=== PATIENT | female | born 1940 | race Caucasian/White ===

== ENCOUNTER → 2016-12-22 | Day surgery (SDC) | payer OTHER, MEDICARE ==
[~2016-12-22] VITALS: Ht 160 cm; Wt 93.4 kg
[~2016-12-22] MED LIST: ARTIFICIAL TEAR15 M2 OP; ASPIRIN81 M1 PO; BENADRYL25 MG PO; BENTYL10 M1 PO; CITRUCEL POWDE850 GM PO; CLARITIN10 MG PO; COLACE100 MG PO; GAS FREE EXTRA125 MG; GOOD SENSE IBU200 MG PO; LACRI LUBE1 OIN OP; LAMICTAL 100MG100 MG PO; MELATONIN3 MG PO; MYRBETRIQ50 M1 PO; PROAIR HFA8.5 GM INH; RESTASIS 0.4 M0.4 ML OPH; SARNA 0.5%-0.5222 ML TOP; SENOKOT NATURA8.6 MG PO; SERTRALINE HYD100 MG PO; TRIAMCINOL0.1 %/453 TOP; TYLENOL #31 TAB PO; TYLENOL TAB 32325 MG PO; TYLENOL WITH C1 EACH PO; VITAMIN D31000 IU PO; XANAX0.5 MG PO; [UNRECOGNIZED DRUG - OTHER] PO
--- NOTE | 2016-12-22 13:11 | Operative Report ---
Operative/Inv Procedure Report Surgery Date: 12/22/16 Name of Procedure: Cataract extraction lens implantation right eye Pre-Operative Diagnosis: Age-related cataract right eye a 40 vision 20/200 glare vision Post-Operative Diagnosis: Same Estimated Blood Loss: none Surgeon/Volunteer Recruiter: VALE PAULSON,MILO Pope Anesthesia: local monitored anesthesi Complications: None Operative/Procedure Note Note: The patient was brought to the operating room standard monitoring equipment was attached the patient was prepped and draped in the usual fashion for intraocular surgery. A lid speculum was placed to retract the lids. The case was begun by making 2 partial-thickness corneal relaxing incisions at 90. A temporal incision with a 2.4 mm keratome. The eye was stabilized with a Abarca ring during this incision. 1 mL of non-preserved lidocaine was introduced into the anterior chamber to provide anesthesia. The anterior chamber was then filled and deepened with viscoelastic. A curvilinear capsulorrhexis was achieved using a 30-gauge needle and is a cystotome and capsulorrhexis was finished using a Utrata forceps. A second or paracentesis incision was made temporally with a 1 mm MVR blade. The lens was then hydrodissected with balanced salt solution and found to be rotatable. The lens was emulsified using phacoemulsification and a modified four-quadrant cracking technique. The residual cortical material was removed using automated irrigation and aspiration and as much of the anterior capsular rim was cleaned as well as possible. The posterior capsule was cleaned first with the automated machine on a low setting and then manually with a Felix squeegee. The capsular bag was deepened with viscoelastic. The lens a Technis 1 21.5 Diopter placed into the bag under direct visualization and rotated so that the haptics were at 12 and 6:00. Viscoelastic was then removed from the eye by flushing it out and then by automated irrigation and aspiration. The eye was pressurized to a normal tone. 1/10 of a cc of vancomycin solution was introduced into the anterior chamber to provide antibiotic prophylaxis. The wounds were sealed by hydrating the stroma adjacent to them and the eye was left at a proper tone after the wounds were checked and found not to be leaking. The lid speculum was removed from the orbit. Antibiotic and steroid drops were placed on the eye and then the eye was shielded. Monitoring equipment was removed from the patient and the patient was removed from the operative suite to the holding area. The patient tolerated the procedure well and will be seen in the office tomorrow.
== END ==
LOC: STS 03:05
DX: H25.9 Unspecified age-related cataract (principal); M19.90 Unspecified osteoarthritis, unspecified site; Z86.73 Personal history of transient ischemic attack (TIA), and cerebral infarction without residual deficits
CPT/HCPCS: J2250; V2632

== ENCOUNTER → 2017-02-01 | Day surgery (SDC) | payer OTHER, MEDICARE ==
[~2017-02-01] VITALS: Ht 160 cm; Wt 93.4 kg
--- NOTE | 2017-02-01 14:53 | Operative Report ---
Operative/Inv Procedure Report Surgery Date: 02/01/17 Name of Procedure: Cataract extraction lens implantation left eye Pre-Operative Diagnosis: Age related cataract left eye 20/20 5 vision 20/150 glare vision Post-Operative Diagnosis: Same Estimated Blood Loss: none Surgeon/Therapy Manager: VALE PAULSON,MILO Pope Anesthesia: local monitored anesthesi Complications: None Operative/Procedure Note Note: The patient was brought to the operating room standard monitoring equipment was attached the patient was prepped and draped in the usual fashion for intraocular surgery. A lid speculum was placed to retract the lids. The case was begun by making 2 partial-thickness corneal relaxing incisions at 75. A temporal incision with a 2.4 mm keratome. The eye was stabilized with a Abarca ring during this incision. 1 mL of non-preserved lidocaine was introduced into the anterior chamber to provide anesthesia. The anterior chamber was then filled and deepened with viscoelastic. A curvilinear capsulorrhexis was achieved using a 30-gauge needle and is a cystotome and capsulorrhexis was finished using a Utrata forceps. A second or paracentesis incision was made temporally with a 1 mm MVR blade. The lens was then hydrodissected with balanced salt solution and found to be rotatable. The lens was emulsified using phacoemulsification and a modified four-quadrant cracking technique. The residual cortical material was removed using automated irrigation and aspiration and as much of the anterior capsular rim was cleaned as well as possible. The posterior capsule was cleaned first with the automated machine on a low setting and then manually with a Felix squeegee. The capsular bag was deepened with viscoelastic. The lens a Technis 1 21.5 Diopter placed into the bag under direct visualization and rotated so that the haptics were at 12 and 6:00. Viscoelastic was then removed from the eye by flushing it out and then by automated irrigation and aspiration. The eye was pressurized to a normal tone. 1/10 of a cc of vancomycin solution was introduced into the anterior chamber to provide antibiotic prophylaxis. The wounds were sealed by hydrating the stroma adjacent to them and the eye was left at a proper tone after the wounds were checked and found not to be leaking. The lid speculum was removed from the orbit. Antibiotic and steroid drops were placed on the eye and then the eye was shielded. Monitoring equipment was removed from the patient and the patient was removed from the operative suite to the holding area. The patient tolerated the procedure well and will be seen in the office tomorrow.
== END ==
LOC: STS 01-04 07:00
DX: H25.9 Unspecified age-related cataract (principal); I10 Essential (primary) hypertension; N28.9 Disorder of kidney and ureter, unspecified; Z86.73 Personal history of transient ischemic attack (TIA), and cerebral infarction without residual deficits; Z79.82 Long term (current) use of aspirin
CPT/HCPCS: J2250; V2632

== ENCOUNTER 2017-11-26 16:26 | Inpatient (IN) | payer OTHER, MEDICARE ==
[~2017-11-26] VITALS: Ht 157.5 cm; Wt 91.6 kg
[~2017-11-26 16:26] MED LIST changes: +ASPIRIN EC81 M1 PO; -ASPIRIN81 M1 PO; +CLARITIN10 M1 PO; -CLARITIN10 MG PO; +COLACE100 M1 PO; -COLACE100 MG PO; +DUREZOL5 ML OU; -LAMICTAL 100MG100 MG PO; +LAMICTAL100 M2 PO; +LOPERAMIDE2 M2 PO; +MELATONIN3 M4 PO; -MELATONIN3 MG PO; +MIRALAX17 G1 PO; +SERTRALINE HCL100 MG PO; -SERTRALINE HYD100 MG PO; +SF 5000 PLUS51 GM PO; +TRIAMCINOLONE A15 G1 TOP; +TUMS200 MG PO; -TYLENOL TAB 32325 MG PO; +TYLENOL325 M1 PO; -VITAMIN D31000 IU PO; +VITAMIN D31000 UNI2 PO; +XANAX0.5 M1 PO; -XANAX0.5 MG PO
--- NOTE | 2017-11-26 16:35 | ED MVC/FALL/TRAUMA COMPLAINT ---
History of Present Illness General Chief Complaint: Fall Stated Complaint: PT BIBA S/P FALL RIGHT HIP PAIN Source: patient, old records, EMS Exam Limitations: no limitations Vital Signs & Intake/Output Vital Signs & Intake/Output Vital Signs Date Time Temp Pulse Resp B/P B/P Pulse O2 O2 Flow FiO2 Mean Ox Delivery Rate 11/27 0613 99.2 79 20 148/88 93 11/26 2358 98.9 80 20 128/80 95 11/26 2045 97.0 74 18 138/78 97 Room Air 11/26 1909 98.5 81 19 138/71 99 Room Air 11/26 1632 72 18 175/73 97 Room Air ED Intake and Output 11/27 0000 11/26 1200 Intake Total 250 Output Total Balance 250 Intake, IV 250 Patient 202 lb Weight Weight Bed scale Measurement Method Allergies Coded Allergies: STATINS (UNKNOWN 06/05/14) cetirizine (From ZYRTEC) (UNKNOWN 07/09/16) nut - unspecified (ITCHING 07/09/16) Reconcile Medications Acetaminophen (Tylenol) 325 MG TABLET 2 TAB PO Q6H PRN PAIN (Reported) Alprazolam (Xanax) 0.5 MG TABLET 1 TAB PO Q6H PRN ANXIETY (Reported) Aspirin (Ecotrin*) 81 MG TABLET.DR 1 TAB PO DAILY HEART/BLOOD (Reported) Calcium Carbonate (TUMS) 200 MG CALCIUM (500 MG) TAB.CHEW 1 TAB PO TID GI ( Reported) Cholecalciferol (Vitamin D3) 1,000 UNIT TABLET 1 TAB PO DAILY SUPPLEMENT ( Reported) Cyclosporine (Restasis) 0.05 % DROPERETTE 1 GTT OU BID BOTH EYES (Reported) Dicyclomine Hydrochloride (Bentyl) 10 MG CAPSULE 1 CAP PO TID GI (Reported) Difluprednate (Durezol) 0.05 % DROPS 1 GTT OU 4XDAILY BOTH EYES (Reported) diphenhydrAMINE HCl (Benadryl) 25 MG CAPSULE 1 CAP PO Q6H PRN ITCHINESS ( Reported) Docusate Sodium (Colace) 100 MG CAPSULE 1 CAP PO TID PRN STOOL SOFTENER ( Reported) Lamotrigine (Lamictal) 100 MG TABLET 1 TAB PO DAILY MENTAL HEALTH (Reported) Loperamide HCl (Loperamide) 2 MG CAPSULE 2 CAP PO Q4H PRN LOOSE STOOLS ( Reported) Loratadine (Claritin) 10 MG TABLET 1 TAB PO DAILY ALLERGIES (Reported) Melatonin 3 MG TABLET 1 TAB PO QHS SLEEP (Reported) Methylcellulose (With Sugar) (Citrucel Powder) 850 GM POWDER 2 GM PO TID PRN GI (Reported) Mirabegron (Myrbetriq) 50 MG TAB.ER.24H 1 TAB PO QHS BLADDER (Reported) Polyethylene Glycol 3350 (Miralax) 17 GRAM POWD.PACK 1 PAC PO DAILY PRN GI ( Reported) dissolve in water Pregabalin (Lyrica) 25 MG CAPSULE 1 CAP PO AD NERVE PAIN (Reported) Quetiapine Fumarate 25 MG TABLET 1 TAB PO QHS MENTAL HEALTH (Reported) Sertraline HCl 100 MG TABLET 1.5 TAB PO DAILY MENTAL HEALTH (Reported) Triage Note: PT BIBA FROM ASSISTED LIVING C/C UNWITNESSED FALL ONTO TILE W/ HEADSTRIKE DENIES LOC. TAKES 81 MG ASA DAILY. ONLY COMPLAINT IS RIGHT HIP PAIN. PATIENT WAS ON GROUND UNTIL EMS ARRIVED. Triage Nurses Notes Reviewed? yes Onset: Just prior to arrival Duration: minute(s): (30) Timing: remote history Severity: severe Severity Numbers: 10 Injuries/Fall Location: lower extremity Method of Injury: fall Loss of Consciousness: no loss of consciousness Modifying Factors: Improves With: rest. Worsens With: palpation. HPI: Patient is a 77-year-old female presenting to the emergency department with chief complaint of right hip pain after falling prior to arrival. Patient reports that she was ambulating with her walker and tripped over part of her walker and fell down onto her right hip area. She does report that she had her head but denies LOC. Denies any nausea vomiting fevers or chills chest pain or shortness of breath. Pain is worse with any type of movement. Patient lives in assisted living facility, follows unwitnessed. Patient denies any visual changes or headaches. She reports that she has bilateral neck pain. No presyncopal symptoms prior to the fall. Patient reports that she got caught up in her walker. Not taking anything for pain prior to arrival. (Vicki Dennison) Past History Travel History Traveled to [place] past 21 day No Medical History Any Pertinent Medical History? see below for history Neurological: CVA EENT: NONE Cardiovascular: hypertension, hyperlipidemia Respiratory: obstructive sleep apnea, INSOMNIA Gastrointestinal: GERD Hepatic: NONE Renal: NONE Musculoskeletal: osteoarthritis Psychiatric: anxiety, bipolar disease, depression Endocrine: NONE Blood Disorders: NONE Cancer(s): NONE TRADE SPECIALIST/Reproductive: NONE History of MRSA: No History of VRE: No History of CDIFF: No Surgical History Surgical History: non-contributory Psychosocial History Who do you live with Patient/Self Services at Home Home Health Aide What is your primary language Indian Tobacco Use: Never used Family History Hx Contributory? No (Vicki Dennison) Review of Systems Review of Systems Constitutional: Reports: no symptoms. Comments Review of systems: See HPI, All other systems negative. Constitutional, no chills fever or weight loss HEENT: No visual changes no sore throat no congestion Cardiovascular: No chest pain ,palpitation , orthopnea or ankle swelling Skin, no jaundice no rashes Respiratory: No dyspnea cough sputum or hemoptysis GI: No nausea no vomiting : No dysuria No hematuria Muscle skeletal: no back pain Neurologic: No numbness no confusion no headaches Psych: No stress anxiety or depression,. Heme/endocrine: No bruising no bleeding no polyuria or polydipsia Immunology: No splenectomy or history of AIDS (Vicki Dennison) Physical Exam Physical Exam General Appearance: well developed/nourished, alert, awake, mild distress Comments: Well-developed well-nourished person in no acute distress HEENT: extraocular motion intact, no nystagmus. Pupils equally round and reactive to light and accommodation. Nose is atraumatic. External auditory canal and Tympanic membranes clear. Pharynx normal. No swelling or edema. No hemotympanum. Neck: Supple, no lymphadenopathy, normal range of motion without pain or tenderness, mild tenderness to palpation along the paraspinal muscles of the cervical spine. Back: Nontender Cardiovascular: Regular rate and rhythms no murmurs rubs or gallops, normal JVP Respiratory: Chest nontender. No respiratory distress.breath sounds clear to auscultation bilaterally Abdomen: Soft, nontender nondistended, no appreciable organomegaly. Normal bowel sounds. No ascites, no rebound or guarding. Extremity: 2+ pitting edema, no calf tenderness to palpation, normal and equal pulses. Tender to palpation of the right hip, significantly reduced range of motion of right hip secondary to pain. Right lower extremity seems internally rotated slightly. No pain with straight leg raise on the left lower 70. Full range of motion of upper extremities without difficulty or pain. Stock Digger strength is equal and symmetric bilaterally. Neuro: Alert oriented x3, motor sensory normal, cranial nerves II through XII grossly intact. Skin: No appreciable rash on exposed skin, skin is warm and dry. Psych: Mood and affect is normal, memory and judgment is normal. Core Measures ACS in differential dx? No CVA/TIA Diagnosis No Sepsis Present: No Sepsis Focused Exam Completed? No (Urbano EDWARDS,Vicki) Progress Differential Diagnosis: hip fracture, pelvis fracture, intracranial hemorrhage, cervical spine fracture, minor head injury Plan of Care: Orders Procedure Date/time Status PT Evaluate & Treat 11/28 0800 Active Nothing by Mouth 11/27 B Active CBC WITHOUT DIFFERENTIAL 11/27 06 Active BASIC ELECTROLYTES PLUS BUN&CR 11/27 06 Active Vital Signs 11/278 Active Teach/Educate 11/27 37 Active Pain Treatment and Response 11/27 37 Active Nutritional Intake, Monitor 11/27 37 Active Isolation 11/27 37 Active Intake & Output 11/278 Active Patient Care Conference 11/278 Active Activity/Ambulation 11/278 Active EKG 11/26 2229 Active Harrison, Insertion/Removal/Asses 11/26 2142 Active CULTURE,URINE 11/26 2142 Active Pathway - chart 11/26 2134 Active Saline Lock 11/26 2133 Active Pathway - chart 11/26 213 Active House Staff 11/26 2133 Active OXYGEN SETUP (GEN) 11/26 2016 Active Saline Lock 11/26 2016 Active Admit to inpatient 11/26 2016 Active Vital Signs 11/26 2016 Active Activity/Ambulation 11/26 2016 Active Code Status 11/26 2016 Active Patient Data 11/26 2009 Active URINALYSIS 11/26 1844 Complete TROPONIN LEVEL 11/26 1844 Complete PARTIAL THROMBOPLASTIN TIME 11/26 1844 Complete PROTHROMBIN TIME 11/26 1844 Complete COMPREHENSIVE METABOLIC PANEL 11/26 1844 Complete CBC WITHOUT DIFFERENTIAL 11/26 1844 Complete EKG 11/26 1844 Active TYPE & SCREEN (NOT X-MATCH) 11/26 184 Complete Intake & Output 11/26 1724 Active VTE Mechanical Prophylaxis 11/26 UNK Active Current Medications Sig/Danyell Start time Last Medication Dose Stop Time Status Admin Melatonin 3 MG AT BEDTIME 11/27 2200 AC (Melatonin) Quetiapine Fumarate 25 MG AT BEDTIME 11/27 2199 AC (Seroquel) Calcium Carbonate 500 MG TID 11/27 1000 AC (TUMS) Cholecalciferol 1,000 IU DAILY 11/27 1000 AC (Vitamin D) Dicyclomine HCl 10 MG TID 11/27 1000 AC (Bentyl) Lamotrigine 100 MG DAILY 11/27 1000 AC (LaMICtal) Sertraline HCl 150 MG DAILY 11/27 1000 AC (Zoloft) Alprazolam 0.5 MG Q6H PRN 11/26 231 AC (Xanax) 12/03 2313 Diphenhydramine HCl 25 MG Q6H PRN 11/26 231 AC (Benadryl) Docusate Sodium 100 MG TID PRN 11/26 2314 AC (Colace) Heparin Sodium 5,000 UNIT Q8 11/26 2199 AC (Porcine) Acetaminophen 650 MG Q6P PRN 11/26 214 AC 11/27 (Tylenol) 0649 Morphine Sulfate 4 MG Q6-PRN PRN 11/26 2144 AC 11/27 (Morphine) 0210 Oxycodone/ 1 TAB Q6P PRN 11/26 2144 AC Acetaminophen (Percocet) Laboratory Tests 11/26/172142: Urinalysis MOD H, Urine Color YEL, Urine Clarity CLEAR, Urine pH 6.0, Ur Specific [place] 1.020, Urine Protein NEG, Urine Ketones NEG, Urine Nitrite NEG, Urine Bilirubin NEG, Urine Urobilinogen 0.2, Ur Leukocyte Esterase TRACE H, Ur Microscopic SEDIMENT EXAMINED, Urine WBC 3-5 H, Ur Epithelial Cells MOD H, Urine Bacteria MOD H, Urine Mucus FEW, Urine Hemoglobin NEG, Urine Glucose NEG 11/26/171901: Anion Gap 15, Estimated GFR 54 L, BUN/Creatinine Ratio 25.0, Glucose 93, Calcium 9.6, Total Bilirubin 0.3, AST 32, ALT 37, Alkaline Phosphatase 123, Troponin I < 0.01, Total Protein 7.7, Albumin 4.6, Globulin 3.1, Albumin/ Globulin Ratio 1.5, PT 11.5, INR 1.10, APTT 31, CBC w Diff NO MAN DIFF REQ, RBC 5.25, MCV 69.4 L, MCH 21.3 L, RDW 17.1 H, MPV 9.0, Gran % 77.8 H, Lymphocytes % 16.5 L, Monocytes % 4.2, Eosinophils % 1.3, Basophils % 0.2, Absolute Granulocytes 6.9 H, Absolute Lymphocytes 1.5, Absolute Monocytes 0.4, Absolute Eosinophils 0.1, Absolute Basophils 0, PUBS MCHC 30.6 L Microbiology 11/26 2142 URINE ROUT: Urine Culture - RECD Patient informed of all lab work results as well as imaging results. Spoke with Dr. Mcgowan, on-call orthopedic, recommending we ask surgical physician lead recreation assistant for consultation. Patient will be admitted to general medicine. d/w dr berrios and he agrees with plan. pt non-toxic. pain improved after iv tylenol and iv morphine. Diagnostic Imaging: Viewed by Me: CT Scan. Discussed w/RAD: CT Scan. Radiology Impression: PATIENT: DENIZ LOUIS PRESENT AGE: 77 PATIENT ACCOUNT NO: [id number] : 42 LOCATION: [facility] ORDERING PHYSICIAN: Vicki EDWARDS SERVICE DATE: 11/26/17 EXAM TYPE: CAT - CT CERV SPINE WO IV CONTRAST; CT HEAD WO IV CONTRAST EXAMINATION: CT HEAD WITHOUT CONTRAST CT CERVICAL SPINE WITHOUT CONTRAST CLINICAL INFORMATION: History of fall, striking head. COMPARISON: CT of the head and cervical spine done on 10/23/2017. CT of the head done on 08/19/2017. TECHNIQUE: Noncontrast CT scan of the head and cervical spine, using standard protocol. Multiplanar reconstructed images are obtained. Multiplanar reconstructed images are also obtained. FINDINGS: CT OF THE HEAD: Ventriculomegaly is present involving both lateral and third ventricles, appears somewhat disproportionate to the sulcal prominence, similar to prior study dated 08/19/2017, may represent normal pressure hydrocephalus. Specifically, no evidence of intra-axial mass, mass effect, extra-axial fluid collection, midline shift, acute intraparenchymal hemorrhage and/or acute infarction present. Both orbital globes, extraocular muscles, optic nerves appear bilaterally symmetric and are unremarkable. The bilateral mastoid air cells appear unremarkable. CT OF THE CERVICAL SPINE: [id number] degenerative spondylosis-related changes are noted at C5-C6 and to a lesser extent C4-C5, C6-C7. The height of the cervical vertebrae is well maintained. Significant facet joint arthritic changes are noted bilaterally. Ligamentous nuchae calcifications are seen at lower cervical spine. There is no prespinal soft tissue hematoma present. Mild [id number] cervical levoscoliosis is seen. Both lung apices are clear. IMPRESSION: 1. No acute intracranial pathology. 2. No CT evidence of any acute fracture no subluxation or dislocation or prespinal soft tissue hematoma present at the cervical spine. 3. No significant change since most recent prior CT of the head and cervical spine done on 10/23/2017. DICTATED BY: Nedra Plasencia MD DATE/TIME DICTATED:1802 GRAPPLE SKIDDER OPERATOR:DENISHA DATE/TIME TRANSCRIBED:11/26/171802 CONFIDENTIAL, DO NOT COPY WITHOUT APPROPRIATE AUTHORIZATION. <Electronically signed in Other Vendor System> SIGNED BY: Nedra Plasencia MD 11/26/171827, PATIENT: DENIZ LOUIS PRESENT AGE: 77 PATIENT ACCOUNT NO: [id number] : 42 LOCATION: [facility] ORDERING PHYSICIAN: Vicki EDWARDS SERVICE DATE: 11/26/17 EXAM TYPE: CAT - CT PELVIS WO IV CONTRAST EXAMINATION: CT PELVIS WITHOUT CONTRAST CLINICAL INFORMATION: Status post fall, complaining of right-sided hip and pelvis. COMPARISON: CT of the abdomen and pelvis done on 10/23/2017. TECHNIQUE: Helical scanning was performed with submillimeter collimation through the pelvis. Sagittal and coronal multiplanar 2-D reconstructions were obtained. DLP: 1194.88 mGy-cm FINDINGS: PELVIS: There is a comminuted subcapital right femoral neck fracture present, the distal fracture fragment is displaced anteriorly, superiorly and laterally ( see the [place] images). Significant thoracolumbar dextro and lower lumbar levoscoliosis and superimposed significant degenerative spondylosis and facet degenerative arthritic changes are noted. There is a focal area of sclerosis present involving the right iliac bone, unchanged since 10/23/2017. There is no additional fracture or dislocation present. The left hip appear intact. The visualized soft tissues of the pelvis shows no discrete focal abnormalities. IMPRESSION: Right femoral neck fracture. DICTATED BY: Nedra Plasencia MD DATE/ TIME DICTATED:11/26/171814 GRAPPLE SKIDDER OPERATOR:WEEKS DATE/TIME TRANSCRIBED: 01/20/18 / 1815 CONFIDENTIAL, DO NOT COPY WITHOUT APPROPRIATE AUTHORIZATION. < Electronically signed in Other Vendor System> SIGNED BY: Nedra Plasencia MD 11/26/17 184 Initial ED EKG: NSR (62 bpm) Prior EKG: unchanged (Vicki Dennison) Departure Departure Time of Disposition: 1901 Disposition: STILL A PATIENT Condition: Stable Clinical Impression Primary Impression: Femoral neck fracture Qualifiers: Encounter type: initial encounter Fracture type: closed Laterality: right Qualified Code: S72.001A - Fracture of unspecified part of neck of right femur, initial encounter for closed fracture Referrals: Lorna Will MD (PCP/Family) Departure Forms: Customer Survey General Discharge Information Admission Note Spoke With: Josr Cedeno MD Documentation of Exam: Documentation of any treatments & extenuating circumstances including Concerns Regarding Discharge (functional status, medication knowledge or non-compliance, living conditions, etc.) that warrant an admission rather than observation: Patient requiring medical clearance prior to surgical fixation of right hip fracture, IV pain management, physical therapy consultation, rehabilitation placement, discharge at this time is medically harmful. (Vicki Dennison) PA/MEDIA RELATIONS COORDINATOR Co-Sign Statement Statement: ED Attending supervision documentation- [X] I saw and evaluated the patient. I have also reviewed all the pertinent lab results and diagnostic results. I agree with the findings and the plan of care as documented in the PA's/MEDIA RELATIONS COORDINATOR's documentation. [X] I have reviewed the ED Record and agree with the PA's/MEDIA RELATIONS COORDINATOR's documentation. [] Additions or exceptions (if any) to the PAs/MEDIA RELATIONS COORDINATOR's note and plan are summarized below: [RIGHT FEMURAL NECK FRACTURE, WILL NEED SURGICAL REPAIR ONCE MEDICALLY CLEARED.] (Len PAULSON,Ever Ng)
--- NOTE | 2017-11-26 18:28 | CT SCAN REPORT ---
EXAMINATION: CT HEAD WITHOUT CONTRAST CT CERVICAL SPINE WITHOUT CONTRAST CLINICAL INFORMATION: History of fall, striking head. COMPARISON: CT of the head and cervical spine done on 10/23/2017. CT of the head done on 08/19/2017. TECHNIQUE: Noncontrast CT scan of the head and cervical spine, using standard protocol. Multiplanar reconstructed images are obtained. Multiplanar reconstructed images are also obtained. FINDINGS: CT OF THE HEAD: Ventriculomegaly is present involving both lateral and third ventricles, appears somewhat disproportionate to the sulcal prominence, similar to prior study dated 08/19/2017, may represent normal pressure hydrocephalus. Specifically, no evidence of intra-axial mass, mass effect, extra-axial fluid collection, midline shift, acute intraparenchymal hemorrhage and/or acute infarction present. Both orbital globes, extraocular muscles, optic nerves appear bilaterally symmetric and are unremarkable. The bilateral mastoid air cells appear unremarkable. CT OF THE CERVICAL SPINE: [id number] degenerative spondylosis-related changes are noted at C5-C6 and to a lesser extent C4-C5, C6-C7. The height of the cervical vertebrae is well maintained. Significant facet joint arthritic changes are noted bilaterally. Ligamentous nuchae calcifications are seen at lower cervical spine. There is no prespinal soft tissue hematoma present. Mild [id number] cervical levoscoliosis is seen. Both lung apices are clear. IMPRESSION: 1. No acute intracranial pathology. 2. No CT evidence of any acute fracture no subluxation or dislocation or prespinal soft tissue hematoma present at the cervical spine. 3. No significant change since most recent prior CT of the head and cervical spine done on 10/23/2017.
--- NOTE | 2017-11-26 18:42 | CT SCAN REPORT ---
EXAMINATION: CT PELVIS WITHOUT CONTRAST CLINICAL INFORMATION: Status post fall, complaining of right-sided hip and pelvis. COMPARISON: CT of the abdomen and pelvis done on 10/23/2017. TECHNIQUE: Helical scanning was performed with submillimeter collimation through the pelvis. Sagittal and coronal multiplanar 2-D reconstructions were obtained. DLP: 1194.88 mGy-cm FINDINGS: PELVIS: There is a comminuted subcapital right femoral neck fracture present, the distal fracture fragment is displaced anteriorly, superiorly and laterally (see the [place] images). Significant thoracolumbar dextro and lower lumbar levoscoliosis and superimposed significant degenerative spondylosis and facet degenerative arthritic changes are noted. There is a focal area of sclerosis present involving the right iliac bone, unchanged since 10/23/2017. There is no additional fracture or dislocation present. The left hip appear intact. The visualized soft tissues of the pelvis shows no discrete focal abnormalities. IMPRESSION: Right femoral neck fracture.
[2017-11-26 19:11] LABS: ABSOLUTE BASOPHIL COUNT 0 /CUMM (0.0-0.2); ABSOLUTE EOSINOPHIL COUNT 0.1 /CUMM (0.0-0.7); ABSOLUTE GRANULOCYTE CT 6.9 /CUMM (1.4-6.5); ABSOLUTE LYMPH COUNT 1.5 /CUMM (1.2-3.4); ABSOLUTE MONOCYTE COUNT 0.4 /CUMM (0.10-0.60); BASOPHIL % 0.2 % (0.0-2.0); EOSINOPHIL % 1.3 % (0-5); GRANULOCYTE % 77.8 % (42.2-75.2); HEMATOCRIT 36.4 % (37-47); MEAN CORPUSCULAR HGB 21.3 PG (27.0-31.0); MEAN CORPUSCULAR HGB CONC 30.6 G/DL (33.0-37.0); MEAN CORPUSCULAR VOLUME 69.4 FL (81.0-99.0); PLATELET COUNT 238 /CUMM (130-400); RBC DISTRIBUTION WIDTH 17.1 % (11.5-14.5); RED BLOOD CELL CT 5.25 /CUMM (4.20-5.40); WHITE BLOOD CELL COUNT 8.8 /CUMM (4.8-10.8)
[2017-11-26 19:18] LABS: PT 11.5 SEC (9.4-12.5); PTT 31 SEC (25-37)
--- NOTE | 2017-11-26 19:45 | Cons- Orthopedic ---
Sonia Ortiz 11/26/17 1939: General Information and HPI Consulting Request Date of Consult: 11/26/17 Requested By: Elia EDWARDS Reason for Consult: hip fracture Exam Limitations: poor historian History of Present Illness: 77F presents to ED after fall at her assisted living facility this evening. She was ambulating with her rolling walker, and tripped when turning a corner. She denies head injury or LOC at time of fall, and denies associated cp/sob/ palpations leading up to fall. Denies other injuries or any pain other than at her right hip. 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 Of note, pt states she is tired and doesnt want to be bothered by the same questions she has already been asked. Allergies/Medications Allergies: Coded Allergies: STATINS (UNKNOWN 06/05/14) cetirizine (From ZYRTEC) (UNKNOWN 07/09/16) nut - unspecified (ITCHING 07/09/16) Home Med List: Acetaminophen (Tylenol) 325 MG TABLET 2 TAB PO Q6H PRN PAIN (Reported) Alprazolam (Xanax) 0.5 MG TABLET 1 TAB PO Q6H PRN ANXIETY (Reported) Aspirin (Ecotrin*) 81 MG TABLET.DR 1 TAB PO DAILY HEART/BLOOD (Reported) Calcium Carbonate (TUMS) 200 MG CALCIUM (500 MG) TAB.CHEW 1 TAB PO TID GI ( Reported) Cholecalciferol (Vitamin D3) 1,000 UNIT TABLET 1 TAB PO DAILY SUPPLEMENT ( Reported) Cyclosporine (Restasis) 0.05 % DROPERETTE 1 GTT OU BID BOTH EYES (Reported) Dicyclomine Hydrochloride (Bentyl) 10 MG CAPSULE 1 CAP PO TID GI (Reported) Difluprednate (Durezol) 0.05 % DROPS 1 GTT OU 4XDAILY BOTH EYES (Reported) diphenhydrAMINE HCl (Benadryl) 25 MG CAPSULE 1 CAP PO Q6H PRN ITCHINESS ( Reported) Docusate Sodium (Colace) 100 MG CAPSULE 1 CAP PO TID PRN STOOL SOFTENER ( Reported) Lamotrigine (Lamictal) 100 MG TABLET 1 TAB PO DAILY MENTAL HEALTH (Reported) Loperamide HCl (Loperamide) 2 MG CAPSULE 2 CAP PO Q4H PRN LOOSE STOOLS ( Reported) Loratadine (Claritin) 10 MG TABLET 1 TAB PO DAILY ALLERGIES (Reported) Melatonin 3 MG TABLET 1 TAB PO QHS SLEEP (Reported) Methylcellulose (With Sugar) (Citrucel Powder) 850 GM POWDER 2 GM PO TID PRN GI (Reported) Mirabegron (Myrbetriq) 50 MG TAB.ER.24H 1 TAB PO QHS BLADDER (Reported) Polyethylene Glycol 3350 (Miralax) 17 GRAM POWD.PACK 1 PAC PO DAILY PRN GI ( Reported) dissolve in water Pregabalin (Lyrica) 25 MG CAPSULE 1 CAP PO AD NERVE PAIN (Reported) Quetiapine Fumarate 25 MG TABLET 1 TAB PO QHS MENTAL HEALTH (Reported) Sertraline HCl 100 MG TABLET 1.5 TAB PO DAILY MENTAL HEALTH (Reported) Past History Medical History Neurological: CVA Cardiovascular: hypertension, hyperlipidemia Respiratory: obstructive sleep apnea, INSOMNIA Gastrointestinal: GERD Musculoskeletal: osteoarthritis Psychiatric: anxiety, bipolar disease, depression Surgical History Pertinent Surgical History: cholecystectomy, tonsilectomy Psychosocial History Where Do You Live? Assisted Living Smoking Status: Never Smoked (not current smoker) ETOH Use: denies use Illicit Drug Use: denies illicit drug use Functional Ability Ambulation: walker Exam & Diagnostic Data Vital Signs and I&O Vital Signs Date Time Temp Pulse Resp B/P B/P Pulse O2 O2 Flow FiO2 Mean Ox Delivery Rate 11/26 1908 98.5 81 19 138/71 99 Room Air 11/26 1632 72 18 175/73 97 Room Air Physical Exam: GEN: NAD CARD: [id number] PULM: no audible wheeze ABD: soft, nt EXT: R hip ttp, skin intact without ecchymosis, RLE shortened and ext rotated, palp dp bl, calves soft nt bl, gross sensation intact/equal bl, gross motor intact feet/ankles Last 24 Hours of Labs: Laboratory Tests 11/26 1901 Chemistry Sodium (137 - 145 mmol/L) 147 H Potassium (3.5 - 5.1 mmol/L) 4.5 Chloride (98 - 107 mmol/L) 104 Carbon Dioxide (22 - 30 mmol/L) 28 Anion Gap (5 - 16) 15 BUN (7 - 17 mg/dL) 25 H Creatinine (0.5 - 1.0 mg/dL) 1.0 Estimated GFR (>60 ml/min) 54 L BUN/Creatinine Ratio (7 - 25 %) 25.0 Glucose (65 - 99 mg/dL) 93 Calcium (8.4 - 10.2 mg/dL) 9.6 Total Bilirubin (0.2 - 1.3 mg/dL) 0.3 AST (14 - 36 U/L) 32 ALT (9 - 52 U/L) 37 Alkaline Phosphatase (<127 U/L) 123 Troponin I (< 0.11 ng/ml) Pending Total Protein (6.3 - 8.2 g/dL) 7.7 Albumin (3.5 - 5.0 g/dL) 4.6 Globulin (1.9 - 4.2 gm/dL) 3.1 Albumin/Globulin Ratio (1.1 - 2.2 %) 1.5 Coagulation PT (9.4 - 12.5 SEC) 11.5 INR (0.90 - 1.19) 1.10 APTT (25 - 37 SEC) 31 Hematology CBC w Diff NO MAN DIFF REQ WBC (4.8 - 10.8 /CUMM) 8.8 RBC (4.20 - 5.40 /CUMM) 5.25 Hgb (12.0 - 16.0 G/DL) 11.2 L Hct (37 - 47 %) 36.4 L MCV (81.0 - 99.0 FL) 69.4 L MCH (27.0 - 31.0 PG) 21.3 L RDW (11.5 - 14.5 %) 17.1 H Plt Count (130 - 400 /CUMM) 238 MPV (7.4 - 10.4 FL) 9.0 Gran % (42.2 - 75.2 %) 77.8 H Lymphocytes % (20.5 - 51.1 %) 16.5 L Monocytes % (1.7 - 9.3 %) 4.2 Eosinophils % (0 - 5 %) 1.3 Basophils % (0.0 - 2.0 %) 0.2 Absolute Granulocytes (1.4 - 6.5 /CUMM) 6.9 H Absolute Lymphocytes (1.2 - 3.4 /CUMM) 1.5 Absolute Monocytes (0.10 - 0.60 /CUMM) 0.4 Absolute Eosinophils (0.0 - 0.7 /CUMM) 0.1 Absolute Basophils (0.0 - 0.2 /CUMM) 0 PUBS MCHC (33.0 - 37.0 G/DL) 30.6 L Imaging Results: SERVICE DATE: 11/26/17 EXAM TYPE: RAD - XRY-HIP 2-3 VIEWS, RIGHT EXAMINATION: XR HIP, RIGHT CLINICAL INFORMATION: Confirm placement of hip fracture. COMPARISON: CT examination dated earlier on 11/18/2017. TECHNIQUE: Two views of the right hip. FINDINGS: Stable appearance of right femoral neck fracture with mild superior and anterior displacement of the distal fracture fragment. No other fractures are identified. Implantable device projects over the right iliac bone with lead terminating near the sacral nerve roots on the right. IMPRESSION: Stable appearance of right femoral neck fracture. EXAM TYPE: CAT - CT PELVIS WO IV CONTRAST EXAMINATION: CT PELVIS WITHOUT CONTRAST CLINICAL INFORMATION: Status post fall, complaining of right-sided hip and pelvis. COMPARISON: CT of the abdomen and pelvis done on 10/23/2017. TECHNIQUE: Helical scanning was performed with submillimeter collimation through the pelvis. Sagittal and coronal multiplanar 2-D reconstructions were obtained. DLP: 1194.88 mGy-cm FINDINGS: PELVIS: There is a comminuted subcapital right femoral neck fracture present, the distal fracture fragment is displaced anteriorly, superiorly and laterally (see the [place] images). Significant thoracolumbar dextro and lower lumbar levoscoliosis and superimposed significant degenerative spondylosis and facet degenerative arthritic changes are noted. There is a focal area of sclerosis present involving the right iliac bone, unchanged since 10/23/2017. There is no additional fracture or dislocation present. The left hip appear intact. The visualized soft tissues of the pelvis shows no discrete focal abnormalities. IMPRESSION: Right femoral neck fracture. EXAM TYPE: CAT - CT CERV SPINE WO IV CONTRAST; CT HEAD WO IV CONTRAST EXAMINATION: CT HEAD WITHOUT CONTRAST CT CERVICAL SPINE WITHOUT CONTRAST CLINICAL INFORMATION: History of fall, striking head. COMPARISON: CT of the head and cervical spine done on 10/23/2017. CT of the head done on 08/19/2017. TECHNIQUE: Noncontrast CT scan of the head and cervical spine, using standard protocol. Multiplanar reconstructed images are obtained. Multiplanar reconstructed images are also obtained. FINDINGS: CT OF THE HEAD: Ventriculomegaly is present involving both lateral and third ventricles, appears somewhat disproportionate to the sulcal prominence, similar to prior study dated 08/19/2017, may represent normal pressure hydrocephalus. Specifically, no evidence of intra-axial mass, mass effect, extra-axial fluid collection, midline shift, acute intraparenchymal hemorrhage and/or acute infarction present. Both orbital globes, extraocular muscles, optic nerves appear bilaterally symmetric and are unremarkable. The bilateral mastoid air cells appear unremarkable. CT OF THE CERVICAL SPINE: [id number] degenerative spondylosis-related changes are noted at C5-C6 and to a lesser extent C4-C5, C6-C7. The height of the cervical vertebrae is well maintained. Significant facet joint arthritic changes are noted bilaterally. Ligamentous nuchae calcifications are seen at lower cervical spine. There is no prespinal soft tissue hematoma present. Mild [id number] cervical levoscoliosis is seen. Both lung apices are clear. IMPRESSION: 1. No acute intracranial pathology. 2. No CT evidence of any acute fracture no subluxation or dislocation or prespinal soft tissue hematoma present at the cervical spine. 3. No significant change since most recent prior CT of the head and cervical spine done on 10/23/2017. Assessment/Plan Assessment/Plan A: 77F with right comminuted displaced subcapital femoral neck fracture, with multiple medical comorbidities, awaiting medical clearance. P: - Admit to medical service due to age and multiple medical comorbidities - will need surgical intervention-await medical optimization/clearance - prn pain meds - NWB RLE - NPO p MN, IVF - home meds - ALPs - will dw Dr. Mcgowan Problem List: 1. Femoral neck fracture Consult Acknowledgment - Thank you for your consult request. Parmjit Mcgowan MD 11/27/17 0934: Assessment/Plan Consult Acknowledgment - Thank you for your consult request. Attending MD Review Statement Attending Statement Attending MD Statement: examined this patient Attending Assessment/Plan: The patient was examined this morning by myself. Agree with physician assistance assessment and history and physical from last night. The patient on physical exam is awake and alert. Her bilateral upper extremity exam is within normal limits. The right lower 70 is shortened and externally rotated on examination. She is palpable pedal pulses in the right lower extremity. She has pain with any motion of the right lower 70. Left lower 70 is grossly neurovascular intact with no abnormalities and within normal limits. X-rays reviewed which show a displaced right femoral neck fracture. The patient is going to require a right hip hemiarthroplasty for surgical fixation and treatment. Risks and benefits of the procedure discussed with the patient detail. We will await medical clearance and then she will go to the operating room for surgery.
[2017-11-26] MEDS ORDERED: QUETIAPINE FUMA25 M1 PO (19:55)
[2017-11-26] MEDS ORDERED: LYRICA25 M1 PO (19:56)
[2017-11-26] MEDS ORDERED: RESTASIS1 EACH OU (19:56)
--- NOTE | 2017-11-26 21:07 | History & Physical ---
Carlos PAULSON,[facility] 11/26/17 2286: General Information and HPI MD Statement: I have seen and personally examined DENIZ BERRY and documented this H&P. The patient is a 77 year old F who presented with a patient stated chief complaint of [fall]. 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 She is presenting to [place] ED on 11/26 with complaint of right hip pain secondary to fall. The patient is resident of an assisted living facility and uses a walker at baseline. Today she was in her usual state of health , she was walking using her walker and while she turning around the corner she tripped over and fell; landed on her right hip. Ever since then patient has been in excruciating pain. 10 out of 10 located over the right hip nonradiating aggravated by movement. Patient carries an emergency buzzer. When she fell she pressed that and everybody came for help and she was brought in by ambulance for further evaluation. The patient denies any chest pain, shortness of breath, palpitation or dizziness before the fall. She denies hitting her head; there was no loss of consciousness. She denies fecal or urinary incontinence. There was no confusion afterwards, no jerking movement of the body, no tongue bite patient remembers the whole incident. Patient has history of obstructive sleep apnea and uses CPAP at night which she has not been compliant for the past 6 months. She also has history of frequent falls in the past. Allergies/Medications Allergies: Coded Allergies: STATINS (UNKNOWN 06/05/14) cetirizine (From [facility]) (UNKNOWN 07/09/16) nut - unspecified (ITCHING 07/09/16) Home Med list Acetaminophen (Tylenol) 325 MG TABLET 2 TAB PO Q6H PRN PAIN (Reported) Alprazolam (Xanax) 0.5 MG TABLET 1 TAB PO Q6H PRN ANXIETY (Reported) Aspirin (Ecotrin*) 81 MG TABLET.DR 1 TAB PO DAILY HEART/BLOOD (Reported) Calcium Carbonate (TUMS) 200 MG CALCIUM (500 MG) TAB.CHEW 1 TAB PO TID GI ( Reported) Cholecalciferol (Vitamin D3) 1,000 UNIT TABLET 1 TAB PO DAILY SUPPLEMENT ( Reported) Cyclosporine (Restasis) 0.05 % DROPERETTE 1 GTT OU BID BOTH EYES (Reported) Dicyclomine Hydrochloride (Bentyl) 10 MG CAPSULE 1 CAP PO TID GI (Reported) Difluprednate (Durezol) 0.05 % DROPS 1 GTT OU 4XDAILY BOTH EYES (Reported) diphenhydrAMINE HCl (Benadryl) 25 MG CAPSULE 1 CAP PO Q6H PRN ITCHINESS ( Reported) Docusate Sodium (Colace) 100 MG CAPSULE 1 CAP PO TID PRN STOOL SOFTENER ( Reported) Lamotrigine (Lamictal) 100 MG TABLET 1 TAB PO DAILY MENTAL HEALTH (Reported) Loperamide HCl (Loperamide) 2 MG CAPSULE 2 CAP PO Q4H PRN LOOSE STOOLS ( Reported) Loratadine (Claritin) 10 MG TABLET 1 TAB PO DAILY ALLERGIES (Reported) Melatonin 3 MG TABLET 1 TAB PO QHS SLEEP (Reported) Methylcellulose (With Sugar) (Citrucel Powder) 850 GM POWDER 2 GM PO TID PRN GI (Reported) Mirabegron (Myrbetriq) 50 MG TAB.ER.24H 1 TAB PO QHS BLADDER (Reported) Polyethylene Glycol 3350 (Miralax) 17 GRAM POWD.PACK 1 PAC PO DAILY PRN GI ( Reported) dissolve in water Pregabalin (Lyrica) 25 MG CAPSULE 1 CAP PO AD NERVE PAIN (Reported) Quetiapine Fumarate 25 MG TABLET 1 TAB PO QHS MENTAL HEALTH (Reported) Sertraline HCl 100 MG TABLET 1.5 TAB PO DAILY MENTAL HEALTH (Reported) Past History Travel History Traveled to [place] past 21 day No Medical History Neurological: CVA Cardiovascular: hypertension, hyperlipidemia Respiratory: obstructive sleep apnea, INSOMNIA Gastrointestinal: GERD Musculoskeletal: osteoarthritis Psychiatric: anxiety, bipolar disease, depression History of MRSA: No History of VRE: No History of CDIFF: No Surgical History Surgical History: cholecystectomy, tonsillectomy Past Family/Social History Psychosocial History Where do you live? Assisted Living Who Do You Live With? self Services at Home: Home Health Aide Primary Language: Norwegian Smoking Status: Never Smoked ETOH Use: denies use Illicit Drug Use: denies illicit drug use Functional Ability ADLs Independent: dressing, eating, toileting, bathing. Ambulation: walker IADLs Needs Assist: shopping, housework, finances, food prep, telephone, transportation, medication admin. Review of Systems Review of Systems Constitutional: Reports: see HPI. Denies: chills, fever, weakness. EENTM: Reports: no symptoms. Cardiovascular: Denies: chest pain, palpitations. Respiratory: Denies: cough, short of breath, stridor. GI: Reports: no symptoms. Genitourinary: Reports: no symptoms. Musculoskeletal: Reports: no symptoms. Exam & Diagnostic Data Last 24 Hrs of Vital Signs/I&O Vital Signs Date Time Temp Pulse Resp B/P B/P Pulse O2 O2 Flow FiO2 Mean Ox Delivery Rate 11/26 2044 97.0 74 18 138/78 97 Room Air 11/26 190 98.5 81 19 138/71 99 Room Air 11/26 1632 72 18 175/73 97 Room Air Physical Exam General Appearance Alert, Oriented X3, Cooperative, Moderate Distress Skin No Rashes HEENT mucous membranes dry Neck No JVD Cardiovascular Normal S1, Normal S2 Lungs Clear to Auscultation, Normal Air Movement Abdomen Normal Bowel Sounds, Soft, No Tenderness Neurological Normal Speech, Normal Tone Extremities b/l lower extremity venous changes some excoration howe on R leg, no hematoma or brusie at fracture site Last 24 Hrs of Labs/Ryan: Laboratory Tests 11/26/172142: Urinalysis MOD H, Urine Color YEL, Urine Clarity CLEAR, Urine pH 6.0, Ur Specific [place] 1.020, Urine Protein NEG, Urine Ketones NEG, Urine Nitrite NEG, Urine Bilirubin NEG, Urine Urobilinogen 0.2, Ur Leukocyte Esterase TRACE H, Ur Microscopic SEDIMENT EXAMINED, Urine WBC 3-5 H, Ur Epithelial Cells MOD H, Urine Bacteria MOD H, Urine Mucus FEW, Urine Hemoglobin NEG, Urine Glucose NEG 11/26/171901: Anion Gap 15, Estimated GFR 54 L, BUN/Creatinine Ratio 25.0, Glucose 93, Calcium 9.6, Total Bilirubin 0.3, AST 32, ALT 37, Alkaline Phosphatase 123, Troponin I < 0.01, Total Protein 7.7, Albumin 4.6, Globulin 3.1, Albumin/ Globulin Ratio 1.5, PT 11.5, INR 1.10, APTT 31, CBC w Diff NO MAN DIFF REQ, RBC 5.25, MCV 69.4 L, MCH 21.3 L, RDW 17.1 H, MPV 9.0, Gran % 77.8 H, Lymphocytes % 16.5 L, Monocytes % 4.2, Eosinophils % 1.3, Basophils % 0.2, Absolute Granulocytes 6.9 H, Absolute Lymphocytes 1.5, Absolute Monocytes 0.4, Absolute Eosinophils 0.1, Absolute Basophils 0, PUBS MCHC 30.6 L Microbiology 11/26 2143 URINE ROUT: Urine Culture - RECD Diagnostic Data EKG Results sinus rhythm no acute changes CXR Results IMPRESSION: Unremarkable examination. Other Results CT OF THE HEAD: CT OF THE CERVICAL SPINE: IMPRESSION: 1. No acute intracranial pathology. 2. No CT evidence of any acute fracture no subluxation or dislocation or prespinal soft tissue hematoma present at the cervical spine. 3. No significant change since most recent prior CT of the head and cervical spine done on 10/23/2017. CT PELVIS WO IV CONTRAST IMPRESSION: Right femoral neck fracture. XR HIP, RIGHT IMPRESSION: Stable appearance of right femoral neck fracture. 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 She is presenting to [place] ED on 11/26 with complaint of right hip pain secondary to fall. -VS WNL -Pertinent labs H/H MCV 70 MCH 21, sodium 147 -Imaging data dictated above Patient is being admitted to general medicine floor and is being treated and evaluated for following conditions #Mechanical fall resulting in right femoral neck fracture Patient is going to require hip surgery. Orthopedics on board. She will undergo moderate risk surgery -MET score 4, RCRI patient score only 1 ponint for CVA history; Class II Risk with 0.9 % Risk of Major Cardiac Event -IVF -Pain pathway with tylenol, percocet and diluded, lidocaine patch -Nothing by mouth after midnight -Orthopedic follow-up -PT evaluation #Chronic medical conditions GERD and anxiety along with bipolar depression, insomnia, neuropathy, Continue TUMS, Bentyl, Xanax, sertraline, Lamictal, Seroquel, melatonin, Lyrica, artificial tears #FC/nothing by mouth in anticipation of procedure/DVT prophylaxis with heparin subcutaneous As Ranked By This Provider Problem List: 1. Femoral neck fracture Qualifiers Encounter type: initial encounter Fracture type: closed Laterality: right Qualified Code: S72.001A - Fracture of unspecified part of neck of right femur, initial encounter for closed fracture Core Measures/Misc (07/24) Acute Coronary Syndrome ACS Diagnosis: No Congestive Heart Failure Congestive Heart Failure Diagnosis No Cerebrovascular Accident CVA/TIA Diagnosis: No VTE (View Protocol) VTE Risk Factors Age>40 No Mechanical VTE Prophylaxis d/t N/A MechProphylax Ordered No VTE Pharm Prophylaxis d/t NA PharmProphylax ordered Sepsis (View protocol) Sepsis Present: No Gretta Zavala 11/26/17 2158: Resident Review Statement Resident Statement: examined this patient, discussed with corporate legal intern, agreed with corporate legal intern, reviewed EMR data (avail), discussed with nursing, discussed with case mgmt, reviewed images Other Findings: Mr. Berry is a 77 yo lady a resident od assissted living facility with PMHx. of HTN. HLD, CVA with residual RLE weakness (About 2 years ago), TEJINDER (She was on Bipap which she discontinued 6 motnhs ago dt problems with the machine), OA, GERD, dry eye syndrome, Anxiety/depression, Bipolar who presented to ED with a c /o mechanical fall and right hip pain. Patient has a mechanical fall at the facility, she denies any chest pain, SOB, palpitation, dizziness prior to the fall, she said that she tripped while walking and fell on the right hip, denies hitting her head, she denies LOC, immedialtly after she fell she press the emergency button, and the staff brought her to ED. She report sever pain localized at the right hip, 10/10, slightly improved with the pain medicine that we gave her at . Vitals: Stable On examination she has a regular pulse, on cardiac axamination: S1, S2, no addedd sound, chest: normal air entry, no added sound Imaging as above: pertinent to Rt. femoral neck fracture Her RCRI= 1, class II of risk for perioperative cardiac events with a risk percentage of 0.9% Assessment: #Mechanical fall with a resultant right femoral neck fracture #Hx. of CVA with a residual Rt. LE weakness #Hx. of HTN, HLD #Hx. of TEJINDER non-complaint with Bipap #Hx. of anxiety/ depression #Hx. of Bipolar Plan: * Will admitt the patient to general medicine floor * CXR ordered will f/u * Gentle hydration with IV NS * NPO after midnight for surgery at am * Will continue all of her medication from tomorrow * Patient is medicall optimized for the surgery * Pain amangement with tylenol, percocet and diluded * DVT ppx with sc heparin * Full code Josr Cedeno 11/27/17 0232: Attending MD Review Statement Attending Statement Attending MD Statement: examined this patient, discuss w/resident/PA/CREPE MACHINE OPERATOR, agreed w/resident/PA/CREPE MACHINE OPERATOR, reviewed EMR data (avail), reviewed images, amended to note Attending Assessment/Plan: CC: fall PMH: HLD, CVA with residual right-sided weakness, TEJINDER, GERD, anxiety/depression, bipolar disorder Patient does not talk much to provide details. Patient was brought in ER from assisted living after fall. She was walking around with a rolling walker when she tripped while turning and fell on her right side, denies any head strike, loss of consciousness, headache, palpitations, dizziness, chest pain. She noticed to have severe right-sided pain and was brought in ER. Vitals: Afebrile, pulse in 70s, RR 18, blood pressure 138/71, saturating 99% on room air. On exam: A O 3, cooperative, distress due to pain, neck supple, JVD normal, no lymphadenopathy, mucosa moist, no focal neurological deficit, no dependent edema , no obvious skin rashes or inflammation, right lower extremity short, externally rotated CVS: S1-S2, RRR. RS: Clear to auscultate bilaterally. Abdomen : Soft, NT, ND, bowel sounds present. Labs: Mild chronic microcytic anemia, sodium 147, BUN 25 otherwise CBC, BMP, LFT , troponin unremarkable, UA positive for trace leukocyte esterase ECG: No acute changes CT head, CT cervical spine, CT pelvis, x-ray hip, x-ray chest are reviewed right femoral neck fracture. Assessment and plan 77-year-old female was brought in ER from assisted living after what appears to be accidental fall, no loss of consciousness, head strike, open injuries. She is found to have right femoral neck fracture. Patient does not have any significant history of CAD, HF, DM. 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 She has low estimated risk for adverse outcomes for noncardiac surgery, 0.9% morbidity and mortality related to cardiac issues. No acute ECG changes, troponin negative, no chest pain, low risk for surgery. Patient's polypharmacy can be one of the factors for recurrent falls. Reviewing her records patient had been in ER several times for falls since 2016. + Right femoral neck fracture + Preop evaluation + Recurrent falls - Admit to general medicine - Continue gentle hydration - Adequate pain control - Nothing by mouth after midnight - Appreciate surgery consult - Continue all her home medications - DVT prophylaxis
--- NOTE | 2017-11-26 21:26 | RADIOLOGY REPORT ---
EXAMINATION: XR HIP, RIGHT CLINICAL INFORMATION: Confirm placement of hip fracture. COMPARISON: CT examination dated earlier on 11/18/2017. TECHNIQUE: Two views of the right hip. FINDINGS: Stable appearance of right femoral neck fracture with mild superior and anterior displacement of the distal fracture fragment. No other fractures are identified. Implantable device projects over the right iliac bone with lead terminating near the sacral nerve roots on the right. IMPRESSION: Stable appearance of right femoral neck fracture.
--- NOTE | 2017-11-26 21:27 | RADIOLOGY REPORT ---
EXAMINATION:\H\ \N\XR CHEST CLINICAL INFORMATION: Preoperative. COMPARISON: Chest radiograph 05/07/2013. TECHNIQUE: Frontal view of the chest was obtained. FINDINGS: No significant abnormality is noted involving the heart, lungs, mediastinum, bony thorax or soft tissues. IMPRESSION: Unremarkable examination.
[2017-11-26 23:58] VITALS: BP 128/80
--- NOTE | 2017-11-27 02:33 | Admission Certification ---
Admission Certification Certification Statement - As attending physician, I certify that at the time of - admission, based on clinical presentation, severity of - symptoms, need for further diagnostic testing and - therapeutic interventions, and risk of adverse outcomes - without in-hospital treatment, in my clinical assessment, - this patient requires an acute hospital stay for a minimum - of two nights or longer. I have also considered psychsocial - factors such as support system, advanced age, financial - issues, cognitive issues, and failed out-patient treatments, - past re-admission history, safety of patient, and lack of - compliance as applicable. Specific rationale supporting this admission is: accidental fall, right femoral neck fracture
[2017-11-27 06:13] VITALS: BP 148/88
[2017-11-27 08:28] LABS: ABSOLUTE BASOPHIL COUNT 0 /CUMM (0.0-0.2); ABSOLUTE EOSINOPHIL COUNT 0.2 /CUMM (0.0-0.7); ABSOLUTE GRANULOCYTE CT 6.4 /CUMM (1.4-6.5); ABSOLUTE LYMPH COUNT 1.3 /CUMM (1.2-3.4); ABSOLUTE MONOCYTE COUNT 0.5 /CUMM (0.10-0.60); BASOPHIL % 0 % (0.0-2.0); EOSINOPHIL % 2.8 % (0-5); GRANULOCYTE % 76.2 % (42.2-75.2); HEMATOCRIT 32.9 % (37-47); MEAN CORPUSCULAR HGB 21.5 PG (27.0-31.0); MEAN CORPUSCULAR VOLUME 69.5 FL (81.0-99.0); MEAN PLATELET VOLUME 8.7 FL (7.4-10.4); PLATELET COUNT 205 /CUMM (130-400); RBC DISTRIBUTION WIDTH 16.9 % (11.5-14.5); RED BLOOD CELL CT 4.74 /CUMM (4.20-5.40); WHITE BLOOD CELL COUNT 8.4 /CUMM (4.8-10.8)
--- NOTE | 2017-11-27 10:06 | PN- Housestaff ---
Dutch PAULSON,Janet 11/27/17 1006: Subjective Follow-up For: fall femoral neck fracture Subjective: patient is being visited by family. she states she feels "pretty good". has many questions about surgery. no complaints. Review of Systems Constitutional: Reports: no symptoms. Musculoskeletal: Reports: back pain, joint pain. Objective Last 24 Hrs of Vital Signs/I&O Vital Signs Date Time Temp Pulse Resp B/P B/P Pulse O2 O2 Flow FiO2 Mean Ox Delivery Rate 11/27 0613 99.2 79 20 148/88 93 11/26 2358 98.9 80 20 128/80 95 11/26 2045 97.0 74 18 138/78 97 Room Air 11/26 1909 98.5 81 19 138/71 99 Room Air 11/26 1632 72 18 175/73 97 Room Air Intake & Output 11/27 1600 11/27 0800 11/27 0000 Intake Total 430 0 250 Output Total 350 350 Balance 80 -350 250 Intake, IV 400 250 Intake, Oral 30 0 Output, Urine 350 350 Patient 202 lb Weight Weight Bed scale Measurement Method Physical Exam General Appearance: Alert, Oriented X3, Cooperative, No Acute Distress Sepsis Skin Exam (color): Normal for Ethnicity Cardiovascular: Regular Rate, Normal S1 Lungs: Clear to Auscultation Abdomen: Normal Bowel Sounds, Soft, No Tenderness Current Medications: Current Medications Sig/Danyell Start time Last Medication Dose Route Stop Time Status Admin Acetaminophen 650 MG .STK-MED ONE 11/27 0647 DC PO 11/27 0648 Acetaminophen 650 MG Q6P PRN 11/26 2145 11/27 PO 0649 Acetaminophen 0 .STK-MED ONE 11/26 1652 DC IV Acetaminophen 1,000 MG ONCE ONE 11/26 1645 DC 11/26 N/A 1 UNIT IV 11/26 1659 1716 Alprazolam 0.5 MG Q6H PRN 11/26 2315 AC PO 12/03 2314 Calcium Carbonate 500 MG TID 11/27 1000 AC 11/27 PO 0838 Cholecalciferol 1,000 IU DAILY 11/27 1000 AC 11/27 PO 0837 Dextrose/Sodium 1,000 ML Q20H 11/27 0930 AC 11/27 Chloride IV 0945 Dicyclomine HCl 10 MG TID 11/27 1000 AC 11/27 PO 0837 Diphenhydramine HCl 25 MG Q6H PRN 11/26 2314 AC PO Docusate Sodium 100 MG TID PRN 11/26 231 AC PO Heparin Sodium 5,000 UNIT Q8 11/26 2199 AC (Porcine) SC Ketorolac 30 MG ONCE ONE 11/26 170 DC 11/26 Tromethamine IM 11/26 1701 1654 Ketorolac 0 .STK-MED ONE 11/26 1654 DC Tromethamine .ROUTE Lamotrigine 100 MG DAILY 11/27 1000 AC 11/27 PO 0837 Melatonin 3 MG AT BEDTIME 11/27 2199 AC PO Morphine Sulfate 4 MG Q6-PRN PRN 11/26 214 AC 11/27 IV 0210 Morphine Sulfate 0 .STK-MED ONE 11/26 1922 DC .ROUTE Morphine Sulfate 4 MG ONCE ONE 11/26 1914 DC 11/26 IV 11/26 Oxycodone/ 1 TAB Q6P PRN 11/26 2144 AC Acetaminophen PO Quetiapine Fumarate 25 MG AT BEDTIME 11/27 2199 AC PO Sertraline HCl 150 MG DAILY 11/27 1000 AC 11/27 PO 0837 Last 24 Hrs of Lab/Ryan Results Last 24 Hrs of Labs/Mics: Laboratory Tests 11/27/17 0708: Anion Gap 11, Estimated GFR > 60, BUN/Creatinine Ratio 30.0 H, CBC w Diff NO MAN DIFF REQ, RBC 4.74, MCV 69.5 L, MCH 21.5 L, RDW 16.9 H, MPV 8.7, Gran % 76.2 H, Lymphocytes % 15.1 L, Monocytes % 5.9, Eosinophils % 2.8, Basophils % 0, Absolute Granulocytes 6.4, Absolute Lymphocytes 1.3, Absolute Monocytes 0.5, Absolute Eosinophils 0.2, Absolute Basophils 0, PUBS MCHC 31.0 L 11/26/172142: Urinalysis MOD H, Urine Color YEL, Urine Clarity CLEAR, Urine pH 6.0, Ur Specific [place] 1.020, Urine Protein NEG, Urine Ketones NEG, Urine Nitrite NEG, Urine Bilirubin NEG, Urine Urobilinogen 0.2, Ur Leukocyte Esterase TRACE H, Ur Microscopic SEDIMENT EXAMINED, Urine WBC 3-5 H, Ur Epithelial Cells MOD H, Urine Bacteria MOD H, Urine Mucus FEW, Urine Hemoglobin NEG, Urine Glucose NEG 11/26/171901: Anion Gap 15, Estimated GFR 54 L, BUN/Creatinine Ratio 25.0, Glucose 93, Calcium 9.6, Total Bilirubin 0.3, AST 32, ALT 37, Alkaline Phosphatase 123, Troponin I < 0.01, Total Protein 7.7, Albumin 4.6, Globulin 3.1, Albumin/ Globulin Ratio 1.5, PT 11.5, INR 1.10, APTT 31, CBC w Diff NO MAN DIFF REQ, RBC 5.25, MCV 69.4 L, MCH 21.3 L, RDW 17.1 H, MPV 9.0, Gran % 77.8 H, Lymphocytes % 16.5 L, Monocytes % 4.2, Eosinophils % 1.3, Basophils % 0.2, Absolute Granulocytes 6.9 H, Absolute Lymphocytes 1.5, Absolute Monocytes 0.4, Absolute Eosinophils 0.1, Absolute Basophils 0, PUBS MCHC 30.6 L Microbiology 11/26 2142 URINE ROUT: Urine Culture - RES Assessment/Plan Assessment: Assessment: The patient is a 77-year-old female with past medical history of hypertension, hyperlipidemia, CVA with residule right lower extremity weakness in 2015, obstructive sleep apnea, GERD, osteoarthritis, anxiety, bipolar depression and dry eyes syndrome. She is presenting to [place] ED on 11/26 with complaint of right hip pain secondary to fall. -VS WNL -Pertinent labs hb 10.2, wbc 8.4, MCV 69.5 MCH 21, sodium 143 -Imaging data dictated above PLAN #Mechanical fall resulting in right femoral neck fracture Patient is going to require hip surgery. Orthopedics on board. She will undergo moderate risk surgery of right hip hemiarthroplasty today at 1430 and will recover in PACU. -MET score 4, RCRI patient score only 1 ponint for CVA history; Class II Risk with 0.9 % Risk of Major Cardiac Event -IVF -Pain pathway with tylenol, percocet and diluded, lidocaine patch -Surgery will dictate when to start anticoagulation post surgery -Orthopedic follow-up -PT evaluation post surgery. -CALL [phone] RISHABH THE SON POST SURGERY IF POSSIBLE TO GIVE UPDATE. #Chronic medical conditions GERD and anxiety along with bipolar depression, insomnia, neuropathy, Continue TUMS, Bentyl, Xanax, sertraline, Lamictal, Seroquel, melatonin, Lyrica, artificial tears #FC/nothing by mouth in anticipation of procedure/DVT prophylaxis with heparin subcutaneous Problem List: 1. Femoral neck fracture 2. Fall Pain Ratin Pain Location: right leg Pain Goal: Pain 4 or less Pain Plan: pathway Tomorrow's Labs & Rationales: cbc bep Nacho Bolaños MD 11/27/17 1555: Attending MD Review Statement Attending Statement Attending MD Statement: examined this patient, discuss w/resident/PA/PUBLIC ADDRESS SERVICER, discussed with nursing Attending Assessment/Plan: 77-year-old female has been admitted with right sided femoral neck fracture. Minimal pre-operative risk. Has minimal pain. Patient to undergo open reduction with internal fixation today. No known history of coronary artery disease, HF or Diabetes. Although does have a history of CVA. Normally ambulates with the help of walker. Will need post operative DVT prophylaxis - timing will need to be discussed with the surgical team. Continue other home medications.
--- NOTE | 2017-11-27 13:01 | Discharge Summary ---
Visit Information Visit Dates Admission Date: 11/26/17 Hospital Course Course Attending Physician: Josr Cedeno MD Primary Care Physician: Suman PAULSON,Lorna Allergies: Coded Allergies: STATINS (UNKNOWN 06/05/14) [facility]) (UNKNOWN 07/09/16) nut - unspecified (ITCHING 07/09/16) Discharge Instructions General Discharge Information Code Status: Full Code Medications at Discharge Discharge Medications: Continue taking these medications: Aspirin (Ecotrin*) 81 MG TABLET.DR 1 Tablet ORAL DAILY Lamotrigine (Lamictal) 100 MG TABLET 1 Tablet ORAL DAILY Cholecalciferol (Vitamin D3) 1,000 UNIT TABLET 1 Tablet ORAL DAILY Melatonin (Melatonin) 3 MG TABLET 1 Tablet ORAL TAKE AT BEDTIME Acetaminophen (Tylenol) 325 MG TABLET 2 Tablet ORAL Q6H as needed for PAIN Alprazolam (Xanax) 0.5 MG TABLET 1 Tablet ORAL Q6H as needed for ANXIETY Loratadine (Claritin) 10 MG TABLET 1 Tablet ORAL DAILY Docusate Sodium (Colace) 100 MG CAPSULE 1 Capsule ORAL THREE TIMES DAILY as needed for STOOL SOFTENER Sertraline HCl (Sertraline HCl) 100 MG TABLET 1.5 Tablet ORAL DAILY Mirabegron (Myrbetriq) 50 MG TAB.ER.24H 1 Tablet ORAL TAKE AT BEDTIME Dicyclomine Hydrochloride (Bentyl) 10 MG CAPSULE 1 Capsule ORAL THREE TIMES DAILY Methylcellulose (With Sugar) (Citrucel Powder) 850 GM POWDER 2 Gram ORAL THREE TIMES DAILY as needed for GI Polyethylene Glycol 3350 (Miralax) 17 GRAM POWD.PACK 1 Packet ORAL DAILY as needed for GI Instructions: dissolve in water diphenhydrAMINE HCl (Benadryl) 25 MG CAPSULE 1 Capsule ORAL Q6H as needed for ITCHINESS Loperamide HCl (Loperamide) 2 MG CAPSULE 2 Capsule ORAL Q4H as needed for LOOSE STOOLS Difluprednate (Durezol) 0.05 % DROPS 1 Drop Both Eyes 4XDAILY Calcium Carbonate (TUMS) 200 MG CALCIUM (500 MG) TAB.CHEW 1 Tablet ORAL THREE TIMES DAILY Quetiapine Fumarate (Quetiapine Fumarate) 25 MG TABLET 1 Tablet ORAL TAKE AT BEDTIME Qty = 13 Cyclosporine (Restasis) 0.05 % DROPERETTE 1 Drop Both Eyes TWICE DAILY Qty = 30 Pregabalin (Lyrica) 25 MG CAPSULE 1 Capsule ORAL As Directed Qty = 39 Attending MD Review Statement Documenting Attending: Andi PAULSON,Rachel
--- NOTE | 2017-11-27 16:47 | Operative Report ---
Operative/Inv Procedure Report Surgery Date: 11/27/17 Name of Procedure: Right hip hemiarthroplasty Pre-Operative Diagnosis: Right femoral neck fracture Post-Operative Diagnosis: Same Estimated Blood Loss: 220 Surgeon/Resizer Operator: loy Anesthesia: general endotracheal tube IV Fluids: See anesthesia record Implants: Maximus Accolade 2 fracture stem and a 47 mm endoprosthetic head standard neck length Drains: None Specimens: Right femoral head Complications: None Condition: Stable Operative Indication: Patient's a 77-year-old female status post mechanical fall with a right displaced femoral neck fracture. She is cleared by the medical service and indicated for surgical fixation with a hemiarthroplasty. Risk and benefits of procedure discussed the patient and she wished to proceed. Operative/Procedure Note Note: Once informed consent was obtained and the correct limb was identified the patient brought to operative room placed on table supine position. After administration of general endotracheal anesthesia patient placed in a left lateral decubitus position on a beanbag. The right lower 70 is prepped and draped usual sterile fashion. To begin the procedure standard posterior incision was made for posterior approach to the hip. Sharp dissection was carried down to skin and subcutaneous tissue. Tensor fascia riki was incised. Sharp dissection was carried out with curved Rodriguez scissors. The gluteus eugene fibers were left in line with bipennate junction. Charnley retractor was placed. The fat was swept off the short external external rotators and the released from their insertion the piriformis fossa and tagged for later repair. Capsulotomy was performed. Femoral neck fracture was identified and cleaned of debris. Femoral head was removed with a corkscrew instrument. Pulmonology removed from the acetabulum. The femoral head was measured to be a size 46 and 46 trial head was placed into the cup. This gave an excellent fit with good suction. Once bleeding stopped from the acetabulum we internally rotated the femur and began broaching for the femoral component. First a box osteotome was used to open up the lateral femoral neck. Then a reamer was used to open up the distal femoral canal. We then sequentially broached with the Accolade 2 fracture stem broaches up to a size 4 broach. 4 broach was good fit with rotational stability. This was left in place and a trial reduction was done with standard neck length. The 46 mm trial head was placed and the hip was reduced. It had good stability to 90 of flexion with 30 of internal rotation. Leg lengths are equal. The hip was then redislocated and the components removed. Femoral canal was pulse lavaged and a size 4 fracture stem was opened and placed down the femoral canal with a press-fit technique. A 46 [place] head with a standard neck length was opened and placed onto the femoral stem and the hip was reduced. The hip was again stable and leg lengths are equal. The incision was then and wound was pulse lavaged. The short external rotators repaired back to the greater trochanter through drill holes. The fascia was closed with a running #1 looped Maxon suture. Subcutaneous tissues closed with #1 Vicryl and 2-0 Vicryl interrupted sutures. Skin was closed bret and sterile dressing was applied. Patient was awakened taken recovery room in stable condition.
--- NOTE | 2017-11-27 17:45 | RADIOLOGY REPORT ---
EXAMINATION: XR HIP, RIGHT CLINICAL INFORMATION: Status post right hip arthroplasty COMPARISON: 11/26/2017 x-ray TECHNIQUE: Single AP of the right hip. FINDINGS: The patient is status post right hip arthroplasty. There is no evidence of fracture of the prosthesis. There is a small lucency in the region of greater trochanter, adjacent to the prosthesis. A battery pack device is seen projecting over the right iliac bone, similar to prior exam. Surgical bret are seen in the lateral gluteal region. Soft tissue edema is present. IMPRESSION: Status post right hip hemiarthroplasty.
[2017-11-27 19:00] VITALS: BP 130/62
--- NOTE | 2017-11-27 20:04 | Event Note ---
Event Note Event Note: Situation - We were called that patient is having altered mental status and she came from PACU after having right hip ORIF. 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 She is presenting to [facility] ED on 11/26 with complaint of right hip pain secondary to fall. Assessment - Vitals - blood pressure 130/62, heart rate 97, respiratory 20, SPO2 94% on room air. On examination, not oriented to time, place and person, moving all 4 limbs, heart S1, S2 normal, lungs clear. Plan - * Neurocheck every 4 hourly. * CBC/BEP - state INR * Medical restraint as needed * Call night team if patient get more agitated and aggravated * Attending is aware
--- NOTE | 2017-11-28 00:25 | PN- Orthopedic ---
Subjective Subjective: Postop check Status post right hip hemiarthroplasty Upon arrival to the floor, according to the nurse, the patient demonstrated a change in mental status, for which a rapid response was called. The patient's vital signs remained stable throughout and evaluation now the patient is resting comfortably with no complaints. Objective Vital Signs and I&Os Vital Signs Date Time Temp Pulse Resp B/P B/P Pulse O2 O2 Flow FiO2 Mean Ox Delivery Rate 11/27 612 99.2 79 20 148/88 93 Intake & Output 11/28 0811/28 0000 11/27 1600 11/27 0811/27 1600 Intake Total 430 0 250 Output Total 350 350 Balance 80 -350 250 Intake, IV 400 250 Intake, Oral 30 0 Output, Urine 350 350 Patient 202 lb Weight Weight Bed scale Measurement Method Physical Exam: cv: rrr lungs: clear abd: soft, +bs ext: drsg dry thigh soft distal cms inatact abductor pillow in place Assessment/Plan Assessment/Plan ortho stable plan dvt prophylaxis per medical may be oob in am wbat right le posterior hip precautions, right le will need snf on d/c Core Measures Venous Thromboembolism VTE Risk Factors Age>40 No Mechanical VTE Prophylaxis d/t N/A MechProphylax Ordered No VTE Pharm Prophylaxis d/t NA PharmProphylax ordered
[2017-11-28 06:39] VITALS: BP 118/79
--- NOTE | 2017-11-28 07:12 | PN- Orthopedic ---
Subjective Subjective: Change of mental status upon arrival to the floor last night. Since arrival to the floor the patient has been agitated and disoriented on and off overnight requiring restraints. Pleasant this am. Alert to person but not place or time. She states she "over ate" and thinks she is in a restaurant currently in [place]. Vital signs have remained stable. Denies any pain to her right hip. Denies any nausea, vomiting, chills, chest pain, or SOB. Harrison in place with adequate UOP. Objective Vital Signs and I&Os Vital Signs Date Time Temp Pulse Resp B/P B/P Pulse O2 O2 Flow FiO2 Mean Ox Delivery Rate 11/28 0657 101.2 11/28 0639 100.3 94 20 118/79 94 11/28 0533 100.3 11/27 1900 97 18 130/62 94 Room Air Intake & Output 11/28 0800 11/28 0000 11/27 1600 11/27 0800 11/27 0000 11/26 1600 Intake Total 640 880 430 0 250 Output Total 700 1000 350 350 Balance -60 -120 80 -350 250 Intake, IV 400 400 400 250 Intake, Oral 240 480 30 0 Number 0 0 Bowel Movements Output, Urine 700 1000 350 350 Patient 202 lb Weight Weight Bed scale Measurement Method Physical Exam: Tmax 101.2, VSS. General: Resting comfortably in bed, wrist restraints in place. Alert to person, not place or time. Cardiac: RRR Pulmonary: CTAB Abdominal: Soft, non tender LE: RLE dressing is c/d/i. Non tender to palpation. Minimal ecchymosis noted at bottom of dressing, non blanchable. Sensation and motor intact in RLE. Calves soft, non tender. Assessment/Plan Assessment/Plan 77 y/o female with multiple medical comorbidities admitted with right comminuted displaced subcapital femoral neck fracture POD # 1 s/p right hip hemiarthroplasty. - Regular diet as tolerated - May be OOB, WBAT to RLE - Posterior hip precautions to RLE - Monitor temperature and mental status - Medical management as per primary team - DVT ppx - recommend Eliquis BID over HSQ - Will need SNF on d/c Core Measures Venous Thromboembolism VTE Risk Factors Age>40 No Mechanical VTE Prophylaxis d/t N/A MechProphylax Ordered No VTE Pharm Prophylaxis d/t NA PharmProphylax ordered No VTE Pharm Prophylaxis d/t NA PharmProphylax ordered
--- NOTE | 2017-11-28 08:54 | Patient Discharge Instructions ---
Discharge Instructions General Discharge Information You were seen/treated for: right hip hemiarthroplasty Special Instructions: 1. follow with dr. granado in one week 2. follow with pcp in one week Diet Continue normal diet: Yes Activity Full Activity/No Limits: Yes ( TOLERATED) Acute Coronary Syndrome Inclusion Criteria At DC or during hospital stay patient has or had the following: ACS DIAGNOSIS No Discharge Core Measures Meds if any: Prescribed or Continued at Discharge Meds if any: NOT Prescribed or Continued at Discharge Congestive Heart Failure Inclusion Criteria At DC or during hospital stay patient has or had the following: CHF DIAGNOSIS No Discharge Core Measures Meds if any: Prescribed or Continued at Discharge Meds if any: NOT Prescribed or Continued at Discharge Cerebrovascular accident Inclusion Criteria At DC or during hospital stay patient has or had the following: CVA/TIA Diagnosis No Discharge Core Measures Meds if any: Prescribed or Continued at Discharge Meds if any: NOT Prescribed or Continued at Discharge Venous thromboembolism Inclusion Criteria VTE Diagnosis No VTE Type NONE VTE Confirmed by (Test) NONE Discharge Core Measures - Per Current guidelines, there needs to be overlap - treatment for the first 5 days of Warfarin therapy. - If discharged on Warfarin prior to 5 days of - overlap therapy, the patient will need to be - assessed for post discharge needs including - *Post discharge parental anticoagulation - *Warfarin and/or parental anticoagulation education - *Follow up date to check INR post discharge At least 5 days overlap therapy as Inpatient No Meds if any: Prescribed or Continued at Discharge Note: Overlap Therapy is Warfarin and Anticoagulant Meds if any: NOT Prescribed or Continued at Discharge
[2017-11-28 09:15] LABS: ABSOLUTE BASOPHIL COUNT 0 /CUMM (0.0-0.2); ABSOLUTE EOSINOPHIL COUNT 0.2 /CUMM (0.0-0.7); ABSOLUTE GRANULOCYTE CT 6.9 /CUMM (1.4-6.5); ABSOLUTE LYMPH COUNT 1.4 /CUMM (1.2-3.4); ABSOLUTE MONOCYTE COUNT 0.7 /CUMM (0.10-0.60); BASOPHIL % 0.1 % (0.0-2.0); EOSINOPHIL % 1.9 % (0-5); GRANULOCYTE % 75.5 % (42.2-75.2); MEAN CORPUSCULAR HGB 21.6 PG (27.0-31.0); MEAN CORPUSCULAR VOLUME 69.6 FL (81.0-99.0); MEAN PLATELET VOLUME 8.6 FL (7.4-10.4); PLATELET COUNT 193 /CUMM (130-400); RBC DISTRIBUTION WIDTH 16.6 % (11.5-14.5); RED BLOOD CELL CT 3.68 /CUMM (4.20-5.40); WHITE BLOOD CELL COUNT 9.1 /CUMM (4.8-10.8)
[2017-11-28 09:35] LABS: HEMATOCRIT 25.6 % (37-47)
--- NOTE | 2017-11-28 11:17 | PN- Housestaff ---
Dutch PAULSON,Janet 11/28/17 1117: Subjective Follow-up For: FALL FEMORAL NECK FRACTURE SP RIGHT HIP HEMIARTHROPLASTY POST OP FEVER AND CONFUSION Subjective: PATIENT IS CONFUSED POST OP. OVERNIGHT SHE WAS DISORIENTED AOX1 AND AGITATED SO WAS PUT IN SOFT RESTRAINTS TO STOP HER FROM PULLING AT HER LINES. FEVER FOUND TO BE 101. Review of Systems Constitutional: Reports: fever. Cardiovascular: Reports: no symptoms. Respiratory: Reports: no symptoms. Gastrointestinal: Reports: no symptoms. Neurological/Psychological: Reports: anxiety, confusion. Objective Last 24 Hrs of Vital Signs/I&O Vital Signs Date Time Temp Pulse Resp B/P B/P Pulse O2 O2 Flow FiO2 Mean Ox Delivery Rate 11/28 1600 Room Air 11/28 1513 98.6 84 18 110/62 96 11/28 1342 Room Air 11/28 0903 99.0 11/28 0657 101.2 11/28 0639 100.3 94 20 118/79 94 11/28 0533 100.3 11/27 1900 97 18 130/62 94 Room Air Intake & Output 11/28 1600 11/28 0800 11/28 0000 Intake Total 880 640 880 Output Total 974 227 2728 Balance 130 -60 -120 Intake, IV 400 400 400 Intake, Oral 480 240 480 Number 0 0 Bowel Movements Output, Urine 541 472 3266 Physical Exam General Appearance: Alert, No Acute Distress Skin: BRUISE WHERE SHE FELL ON HER RIGHT HIP Skin Temp/Moisture Exam: Warm/Dry Sepsis Skin Exam (color): Normal for Ethnicity HEENT: Atraumatic, PERRLA, EOMI, Mucous Membr. moist/pink Cardiovascular: Regular Rate, Normal S1, Normal S2 Lungs: Clear to Auscultation, Normal Air Movement Abdomen: Normal Bowel Sounds, Soft, No Tenderness Neurological: Normal Speech, Strength at 5/5 X4 Ext, Normal Tone, Sensation Intact Extremities: No Clubbing, No Cyanosis, No Edema, Normal Pulses, No Tenderness/ Swelling Current Medications: Current Medications Sig/Danyell Start time Last Medication Dose Route Stop Time Status Admin Acetaminophen 1,000 MG Q6P PRN 11/28 1045 AC N/A 1 UNIT IV Acetaminophen 650 MG .STK-MED ONE 11/28 0533 DC PO 11/28 0534 Acetaminophen 650 MG Q6P PRN 11/26 2145 AC 11/28 PO 0533 Alprazolam 0.5 MG Q6H PRN 11/26 2315 DC PO 12/03 2314 Apixaban 2.5 MG BID 11/28 1000 AC 11/28 PO 1300 Artificial Tears 2 GTT 4 TIMES/DAY PRN 11/28 0115 DC 11/28 OPH 0317 Calcium Carbonate 500 MG TID 11/27 1000 AC 11/28 PO 1619 Cefazolin Sodium 2 GM Q8H 11/27 2305 DC 11/28 N/A 1 UNIT IV 11/28 0734 0612 Cholecalciferol 1,000 IU DAILY 11/27 1000 AC 11/28 PO 0923 Dextrose/Sodium 1,000 ML Q20H 11/28 1045 DC Chloride IV Dextrose/Sodium 1,000 ML Q20H 11/27 0930 DC 11/27 Chloride IV 0945 Dicyclomine HCl 10 MG TID 11/27 1000 AC 11/28 PO 1619 Diphenhydramine HCl 25 MG Q6H PRN 11/26 2315 AC PO Docusate Sodium 100 MG TID PRN 11/26 2315 AC PO Heparin Sodium 5,000 UNIT Q8 11/26 220 DC 11/28 (Porcine) SC 0530 Lamotrigine 100 MG DAILY 11/27 1000 AC 11/28 PO 0923 Melatonin 3 MG AT BEDTIME 11/27 220 DC 11/27 PO 2245 Morphine Sulfate 4 MG Q6-PRN PRN 11/26 214 DC 11/27 IV 0210 Oxycodone/ 1 TAB Q6P PRN 11/26 2145 AC 11/28 Acetaminophen PO 1451 Polyethylene Glycol 17 GM DAILY 11/28 1107 AC 11/28 PO 1300 Quetiapine Fumarate 25 MG AT BEDTIME 11/27 2199 AC 11/27 PO 2245 Senna 187 MG AT BEDTIME 11/28 2199 AC PO Sertraline HCl 150 MG DAILY 11/27 1000 AC 11/28 PO 0923 Sodium Chloride 1,000 ML Q20H 11/28 1400 AC 11/28 IV 1403 Last 24 Hrs of Lab/Ryan Results Last 24 Hrs of Labs/Mics: Laboratory Tests 11/28/17814: CBC w Diff MAN DIFF ORDERED, RBC 3.68 L, MCV 69.6 L, MCH 21.6 L, RDW 16.6 H, MPV 8.6, Gran % 75.5 H, Lymphocytes % 15.0 L, Monocytes % 7.5, Eosinophils % 1.9, Basophils % 0.1, Absolute Granulocytes 6.9 H, Absolute Lymphocytes 1.4, Absolute Monocytes 0.7 H, Absolute Eosinophils 0.2, Absolute Basophils 0, Platelet Estimate VERIFIED BY SMEAR, Polychromasia 1+, Hypochromic-Microcytic 2+ , Poikilocytosis 1+, Basophilic Stippling 1+, Anisocytosis 1+, Microcytic Cells 1+, Ovalocytes 1+, PUBS MCHC 31.0 L 11/28/17 0745: Anion Gap 10, Estimated GFR > 60, BUN/Creatinine Ratio 20.0 11/27/172053: Anion Gap 12, Estimated GFR > 60, BUN/Creatinine Ratio 25.7 H Microbiology 11/28 1045 BLOOD: Blood Culture - RECD 11/28 1022 BLOOD: Blood Culture - RECD Assessment/Plan Assessment: Assessment: The patient is a 77-year-old female with past medical history of hypertension, hyperlipidemia, CVA with residule right lower extremity weakness in 2015, obstructive sleep apnea, GERD, osteoarthritis, anxiety, bipolar depression and dry eyes syndrome. She is presenting to [facility] ED on 11/26 with complaint of right hip pain secondary to fall. -VS WNL -Pertinent labs hb 10.2, wbc 8.4, MCV 69.5 MCH 21, sodium 143 -Imaging data dictated above PLAN #Mechanical fall resulting in right femoral neck fracture Patient is going to require hip surgery. Orthopedics on board. She underwent moderate risk surgery of right hip hemiarthroplasty. -diet was advanced -MET score 4, RCRI patient score only 1 ponint for CVA history; Class II Risk with 0.9 % Risk of Major Cardiac Event. -IVF -Pain pathway with tylenol, percocet and diluded, lidocaine patch -Surgery will dictate when to start anticoagulation post surgery -Orthopedic follow-up -PT evaluation post surgery said patient needs SNF. -CALL [phone] RISHABH THE SON POST SURGERY IF POSSIBLE TO GIVE UPDATE. #post op fever and confusion: post op pneumonia/aspiration/PE/medication reaction/electrolyte imbalance/atelectasis/uti/surgical site infection? 94 sat on RA. -patient on fluids NS 50cc/hr -avoid opiates -patient received abx during surgery keflex -incentive spirometry -cxr showed no evidence of pneumonia; no acute pulmonary findings -watch fever. today patient afebrile. -cultures taken- monitor -if patient spikes fever again start unasyn #Chronic medical conditions GERD and anxiety along with bipolar depression, insomnia, neuropathy, Continue TUMS, Bentyl, Xanax, sertraline, Lamictal, Seroquel, melatonin, Lyrica, artificial tears #constipation bowel regimen ordered DVT prophylaxis with heparin subcutaneous Problem List: 1. Femoral neck fracture 2. Confusion, postoperative Pain Ratin Pain Location: RIGHT HIP Pain Goal: Pain 4 or less Pain Plan: TYLENOL IV Tomorrow's Labs & Rationales: CBC BEP Rachel Escamilla 11/28/17 1145: Attending MD Review Statement Attending Statement Attending MD Statement: examined this patient, discuss w/resident/PA/CRUDE TESTER, agreed w/resident/PA/CRUDE TESTER, discussed with family, reviewed EMR data (avail), discussed with nursing, discussed with case mgmt, reviewed images, amended to note Attending Assessment/Plan: The patient is a 77-year-old female with past medical history of hyperlipidemia, CVA with residule right lower extremity weakness in 2015, obstructive sleep apnea, GERD, osteoarthritis, anxiety, bipolar depression and dry eyes syndrome came to hospital for hip fractue s/p repair 11/27/2017 by orthopedics. Overnight patient developed fever 101 in semaj-operative period. Patient seen/examined bedside. Patient is somnolent not able to good history. Recieved pain meds. Orthopedics follwoing. Her lower extremity is no swelling. Her surgical site looks red ?bruise. She is not hypoxic and does not use accessory muscles. Patient is being followed in semaj-operative fever management. Panculture, monitor off abx, If she spikes again start empiric unasyn pending cultures. Chest xray r/o atelectasis, encourage incentive spirometry. DVT prophyalxis as per orthopedics on eliquis. Monitor mental status and try to take her restrains off as her mental status clears.
[2017-11-28 15:13] VITALS: BP 110/62
--- NOTE | 2017-11-28 15:49 | RADIOLOGY REPORT ---
EXAMINATION: XR PORTABLE CHEST CLINICAL INFORMATION: Atelectasis, post surgery fever and decreased breath sounds. COMPARISON: 11/26/2017 TECHNIQUE: Portable frontal view of the chest was obtained. FINDINGS: The lungs are well expanded. The retrocardiac region left lower lobe is suboptimally evaluated on this single AP portable view -- particularly in this patient with a relatively large body habitus and prominent breast tissue. No overt consolidation or pleural effusion. Cardiac silhouette is normal in size. Old, healed fractures of left lateral fifth and sixth ribs. IMPRESSION: No evidence of pneumonia; no acute pulmonary findings are detected on this portable AP chest radiograph.
--- NOTE | 2017-11-28 21:46 | Discharge Summary ---
Visit Information Visit Dates Admission Date: 11/26/17 Discharge Date: 12/04/17 Hospital Course Course Attending Physician: Rachel Escamilla MD Primary Care Physician: Lorna Will MD Consulting Request: 1 Consulting Specialty: Neurology Consulting Physician: Reason for Consult: encephalopathy Consulting Request: 2 Consulting Specialty: Infectious Disease Consulting Physician: Reason for Consult: Postoperative fevers Hospital Course: 77-year-old female was brought in ER from assisted living after what appears to be accidental fall wtihout LOC, head strike, open injuries. She is found to have right femoral neck fracture. Patient does not have any significant history of CAD, HF, DM. 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 She has low estimated risk for adverse outcomes for noncardiac surgery, 0.9% morbidity and mortality related to cardiac issues. No acute ECG changes, troponin negative, no chest pain, low risk for surgery. Patient's polypharmacy can be one of the factors for recurrent falls. Reviewing her records patient had been in ER several times for falls since 2016. Problem list Right femoral neck fracture Recurrent falls Admited to general medicine and the following is the management Right comminuted displaced subcapital femoral neck fracture She was preoperatively risk stratified - RCRI of 1 with class II perioperative risk (0.9%). Underwent hemiarthroplasty and subsequently started on eliquis 2.5mg BID for DVT prophylaxis which will be continued 2 weeks after discharge. Postoperative course is notable for spiking fevers of 101 for the next 2 days accompained with alteration in mental status. Pain management with IV and oral Tylenol. Orthopedics following and suggested weight bearing as tolerated with posterior hip precautions. PT suggested STR. Postoperative delirium Postoperative course is notable for spiking fevers of 101 for the next 2 days accompained with alteration in mental status. CXR postoperative is unremarkable. Blood and Urine cultures were negative and she was on unasyn briefly. She was kept off xanax and opiate medicaitons. As she appeared dehydrated considered to continued hyrdration. Fevers were presumed secondary to hematoma dropping H&H. received 1 unit PRBC and stabilized there after. She had a history of seizures and EEG was done which did show diffuse encephalopathy. Consulted neuro and thought secondary to low grade fever, psychotropic meds, general anesthesia. she improved without any acute intervention subsequently. CONSULTED PSYCH and they thought it prudent for her to have psychiatric follow up from her provider [facility] when she is at [facility]. We were given a phone number and attempted to call but there was no answer. Instructions have been provided on W10 for psych follow up. Chronic medical conditions GERD and anxiety along with bipolar depression, insomnia, neuropathy, Continue TUMS, sertraline, Lamictal, Seroquel, melatonin, Lyrica, artificial tears, mibegron for urinary incontinence. DVT prophylaxis on eliquis for post op anticoagulation Code status full code Complications: Postoperative course developed delirium Allergies: Coded Allergies: STATINS (UNKNOWN 06/05/14) cetirizine (From ZYRTEC) (UNKNOWN 07/09/16) nut - unspecified (ITCHING 07/09/16) Significant Procedures: Head and cervical neck CT on 11/26/17 IMPRESSION: 1. No acute intracranial pathology. 2. No CT evidence of any acute fracture no subluxation or dislocation or prespinal soft tissue hematoma present at the cervical spine. 3. No significant change since most recent prior CT of the head and cervical spine done on 10/23/2017. Pelvis CT 11/26/17 IMPRESSION: Right femoral neck fracture. Femur Xray IMPRESSION: Stable appearance of right femoral neck fracture. CXR - preoperative 11/26/17 IMPRESSION: Unremarkable examination CXR - postoperative on 11/28/17 IMPRESSION: No evidence of pneumonia; no acute pulmonary findings are detected on this portable AP chest radiograph. Hip Xray on 11/27/17 IMPRESSION: Status post right hip hemiarthroplasty. Pertinent Lab Results: as above Disposition Summary Disposition Principal Diagnosis: Right comminuted displaced subcapital femoral neck fracture - underwent right hemiarthroplasty Additional Diagnosis: Recurrent falls CVA with a residual Rt. LE weakness HTN, HLD TEJINDER non-complaint with Bipap Anxiety/ depression Bipolar Discharge Disposition: short term rehab Discharge Instructions General Discharge Information Code Status: Full Code Patient's Diet: regular diet Patient's Activity: activity as tolerated Follow-Up Instructions/Appts: Please folllow up with your PCP in a week Please follow up with your orthopedician in a week Please continue anticoagulation for atleast Medications at Discharge Discharge Medications: Continue taking these medications: Aspirin (Ecotrin*) 81 MG TABLET. 1 Tablet ORAL DAILY Comments: Last Taken: 1/28/18 Time: 9:00 AM Lamotrigine (Lamictal) 100 MG TABLET 1 Tablet ORAL TAKE AT BEDTIME Comments: Last Taken: 12/04/17 Time: 9:00 AM Cholecalciferol (Vitamin D3) 1,000 UNIT TABLET 1 Tablet ORAL DAILY Comments: Last Taken: 12/04/17 Time: 9:00 AM Melatonin (Melatonin) 3 MG TABLET 1 Tablet ORAL TAKE AT BEDTIME Comments: NOT GIVEN IN HOSPITAL Acetaminophen (Tylenol) 325 MG TABLET 2 Tablet ORAL Q6H as needed for PAIN Comments: Last Taken: 12/03/17 Time: 9:30 AM Alprazolam (Xanax) 0.5 MG TABLET 1 Tablet ORAL Q6H as needed for ANXIETY Comments: NOT GIVEN IN HOSPITAL Loratadine (Claritin) 10 MG TABLET 1 Tablet ORAL DAILY Comments: NOT GIVEN IN HOSPITAL Docusate Sodium (Colace) 100 MG CAPSULE 1 Capsule ORAL THREE TIMES DAILY as needed for STOOL SOFTENER Comments: Last Taken: 12/04/17 Time: 9:00 AM Sertraline HCl (Sertraline HCl) 100 MG TABLET 1.5 Tablet ORAL DAILY Comments: Last Taken: 12/04/17 Time: 9:00 AM Mirabegron (Myrbetriq) 50 MG TAB.ER.24H 1 Tablet ORAL TAKE AT BEDTIME Comments: Last Taken: 12/03/17 Time: 9:00 PM Dicyclomine Hydrochloride (Bentyl) 10 MG CAPSULE 1 Capsule ORAL THREE TIMES DAILY Comments: NOT GIVEN IN HOSPITAL Methylcellulose (With Sugar) (Citrucel Powder) 850 GM POWDER 2 Gram ORAL THREE TIMES DAILY as needed for GI Comments: NOT GIVEN IN HOSPITAL Polyethylene Glycol 3350 (Miralax) 17 GRAM POWD.PACK 1 Packet ORAL DAILY as needed for GI Instructions: dissolve in water Comments: Last Taken: 12/04/17 Time: 9:00 AM diphenhydrAMINE HCl (Benadryl) 25 MG CAPSULE 1 Capsule ORAL Q6H as needed for ITCHINESS Comments: NOT GIVEN IN HOSPITAL Loperamide HCl (Loperamide) 2 MG CAPSULE 2 Capsule ORAL Q4H as needed for LOOSE STOOLS Comments: NOT GIVEN IN HOSPITAL Difluprednate (Durezol) 0.05 % DROPS 1 Drop Both Eyes 4XDAILY Comments: NOT GIVEN IN HOSPITAL Calcium Carbonate (TUMS) 200 MG CALCIUM (500 MG) TAB.CHEW 1 Tablet ORAL THREE TIMES DAILY Comments: Last Taken: 12/04/17 Time: 9:00 AM Quetiapine Fumarate (Quetiapine Fumarate) 25 MG TABLET 1 Tablet ORAL TAKE AT BEDTIME Qty = 13 Comments: Last Taken: 12/03/17 Time: 9:00 PM Cyclosporine (Restasis) 0.05 % DROPERETTE 1 Drop Both Eyes TWICE DAILY Qty = 30 Comments: NOT GIVEN IN HOSPITAL Pregabalin (Lyrica) 25 MG CAPSULE 1 Capsule ORAL THREE TIMES DAILY Qty = 39 Comments: Last Taken: 12/04/17 Time: 9:00 AM Start taking the following new medications: Apixaban (Eliquis) 2.5 MG TABLET 1 Tablet ORAL TWICE DAILY Qty = 28 No Refills Comments: Last Taken: 12/04/17 Time: 9:00 AM Copies To: Suman PAULSON,Dayanna Mcgowan MD,Parmjit Sauer Attending MD Review Statement Documenting Attending: Rachel Escamilla MD Other Findings: Patient admitted here for right hip fracture s/p repair with multiple medical problems in past now psot op course complicated with post op delirium and fever of unclear source. Patient seen/examined bedside. She is aaox 2 oriented. Her opiods has been discontinued alongwith sedating meds. Patient has h/o bipolar disorder and is on multiple pysch meds. She is on lamotrigine. ID and Neurology consulted. Fever of unclear source. EEG with diffuse encephaloapthy. Patient received blood transfusion PRBC for acute blood loss anemia likely post operative. Patient remained afebrile. Discontinued antibiotics. Cultures remain negative. DVT prophyalxis as per orthopedics. CONSULTANTS Infectious disease. Neurology. FOLLOW UP PCP in 3-5 days of discharge. orthopedics in 2 weeks of discharge.
[2017-11-28 22:59] VITALS: BP 142/82
[2017-11-29 06:43] VITALS: BP 120/76
--- NOTE | 2017-11-29 07:39 | PN- Housestaff ---
See Addendum Janet Judd MD 11/29/17 0739: Subjective Follow-up For: FALL FEMORAL NECK FRACTURE SP RIGHT HIP HEMIARTHROPLASTY POST OP FEVER AND CONFUSION Subjective: Patient has waxing and waning confusion. This morning AOx3 but hours later she is AOx2. She is more calm. She had fever overnight again and was given IV Unasyn dose. Patient admits to weakness. Review of Systems Constitutional: Reports: fever, weakness. Neurological/Psychological: Reports: confusion. Objective Last 24 Hrs of Vital Signs/I&O Vital Signs Date Time Temp Pulse Resp B/P B/P Pulse O2 O2 Flow FiO2 Mean Ox Delivery Rate 11/29 0936 98.9 11/29 0643 100.4 81 20 120/76 92 Room Air 11/29 0014 99.2 11/28 2259 101.5 98 20 142/82 96 Room Air 11/28 2200 100.0 11/28 2141 100.0 11/28 2042 101.5 11/28 1600 Room Air 11/28 1513 98.6 84 18 110/62 96 11/28 1342 Room Air Intake & Output 11/29 1600 11/29 0800 11/29 0000 Intake Total 640 750 Output Total 550 275 Balance 90 475 Intake, IV 400 150 Intake, Oral 240 600 Number 0 Bowel Movements Output, Urine 550 275 Physical Exam General Appearance: Alert, Cooperative, No Acute Distress Skin: No Rashes, No Breakdown, No Significant Lesion, surgical site clean with ecchymoses from falling HEENT: Atraumatic, PERRLA Cardiovascular: Regular Rate, Normal S1, Normal S2, No Murmurs Lungs: Clear to Auscultation, Normal Air Movement Abdomen: Normal Bowel Sounds, Soft, No Tenderness, No Hepatospenomegaly, No Masses Neurological: Normal Speech Extremities: No Clubbing, No Cyanosis, No Edema, Normal Pulses, No Tenderness/ Swelling Vascular: Normal Pulses Current Medications: Current Medications Sig/Danyell Start time Last Medication Dose Route Stop Time Status Admin Acetaminophen 650 MG .STK-MED ONE 11/28 2041 DC PO 11/28 2042 Acetaminophen 1,000 MG Q6P PRN 11/28 1045 AC N/A 1 UNIT IV Acetaminophen 650 MG Q6P PRN 11/26 2145 AC 11/28 PO 2041 Ampicillin Sodium/ 3,000 MG Q6 11/29 1200 AC Sulbactam Sodium IV Sodium Chloride 100 ML Ampicillin Sodium/ 3,000 MG ONCE ONE 11/29 0100 DC 11/29 Sulbactam Sodium IV 11/29 0129 0223 Sodium Chloride 100 ML Apixaban 2.5 MG BID 11/28 1000 AC 11/29 PO 0859 Calcium Carbonate 500 MG TID 11/27 1000 AC 11/29 PO 0900 Cholecalciferol 1,000 IU DAILY 11/27 1000 AC 11/29 PO 0859 Dextrose/Sodium 1,000 ML Q20H 11/28 1045 DC Chloride IV Dicyclomine HCl 10 MG TID 11/27 1000 AC 11/29 PO 0859 Diphenhydramine HCl 25 MG Q6H PRN 11/26 2315 AC PO Docusate Sodium 100 MG TID PRN 11/26 2315 AC PO Lamotrigine 100 MG DAILY 11/27 1000 AC 11/29 PO 0859 Oxycodone/ 1 TAB Q6P PRN 11/26 2145 AC 11/29 Acetaminophen PO 0900 Polyethylene Glycol 17 GM DAILY 11/28 1107 AC 11/29 PO 0859 Quetiapine Fumarate 25 MG AT BEDTIME 11/27 2200 AC 11/28 PO 2040 Senna 187 MG AT BEDTIME 11/28 2200 AC 11/28 PO 2038 Sertraline HCl 150 MG DAILY 11/27 1000 AC 11/29 PO 0900 Sodium Chloride 1,000 ML Q20H 11/28 1400 AC 11/29 IV 0900 Last 24 Hrs of Lab/Ryan Results Last 24 Hrs of Labs/Mics: Laboratory Tests 11/29/17 0709: Anion Gap 11, Estimated GFR > 60, BUN/Creatinine Ratio 21.4, CBC w Diff NO MAN DIFF REQ, RBC 3.04 L, MCV 69.9 L, MCH 21.7 L, RDW 16.6 H, MPV 8.8, Gran % 75.2, Lymphocytes % 13.6 L, Monocytes % 8.3, Eosinophils % 2.7, Basophils % 0.2 , Absolute Granulocytes 6.7 H, Absolute Lymphocytes 1.2, Absolute Monocytes 0.7 H, Absolute Eosinophils 0.2, Absolute Basophils 0, PUBS MCHC 31.0 L Assessment/Plan Assessment: Assessment: The patient is a 77-year-old female with past medical history of hypertension, hyperlipidemia, 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 She is presenting [facility] on 11/26 with complaint of right hip pain secondary to fall. -VS WNL -Pertinent labs hb 10.2, wbc 8.4, MCV 69.5 MCH 21, sodium 143 PLAN #Mechanical fall resulting in right femoral neck fracture Orthopedics on board. She underwent moderate risk surgery of right hip hemiarthroplasty. -diet was advanced -MET score 4, RCRI patient score only 1 ponint for CVA history; Class II Risk with 0.9 % Risk of Major Cardiac Event. -Pain pathway with tylenol, percocet and dilaudid, lidocaine patch -As per surgery we have switched AC with heparin to abixiban 2.5mg bid. -Orthopedic follow-up -PT evaluation post surgery said patient needs SNF. -CALL [phone] RISHABH THE SON for any updates #post op fever and confusion: post op pneumonia/aspiration/PE/medication reaction/electrolyte imbalance/atelectasis/uti/surgical site infection? 92 sat on RA today and fever recurrence last night to 101.4. Patient given dose of unasyn overnight. -patient on fluids NS 50cc/hr -avoid opiates -patient received abx during surgery keflex one dose -we will start EMPIRIC unasyn pending cultures as patient has 2 days recurrence of fever. It is to be noted that some of the literature says no antibiotics in first 3-4 days after surgery as fever may be secondary to lingering cytokine release. -continue incentive spirometry -cxr showed no evidence of pneumonia; no acute pulmonary findings -dc bedoya to decrease chances of infection #ANEMIA -patient found today to have Hb to 6.6 -Transfused one unit -Admission Hb is 11.2 and post surgery was 7.9. -Source of bleeding? -guaic all stools -post transfusion cbc 6pm #Chronic medical conditions GERD and anxiety along with bipolar depression, insomnia, neuropathy, Continue TUMS, Bentyl, Xanax, sertraline, Lamictal, Seroquel, melatonin, Lyrica, artificial tears #constipation bowel regimen ordered DVT prophylaxis with heparin subcutaneous Problem List: 1. Confusion, postoperative 2. Femoral neck fracture Pain Ratin Pain Location: right hip Pain Goal: Pain 4 or less Pain Plan: prn Tomorrow's Labs & Rationales: cbc bep Rachel Escamilla 11/29/17 1121: Attending MD Review Statement Attending Statement Attending MD Statement: examined this patient, discuss w/resident/PA/FRUIT STUFFER, agreed w/resident/PA/FRUIT STUFFER, discussed with family, reviewed EMR data (avail), discussed with nursing, discussed with case mgmt, reviewed images, amended to note Attending Assessment/Plan: The patient is a 77-year-old female with past medical history of hyperlipidemia, CVA with residule right lower extremity weakness in 2016, obstructive sleep apnea, GERD, osteoarthritis, anxiety, bipolar depression and dry eyes syndrome came to hospital for hip fractue s/p repair 11/27/2017 by orthopedics. Patient is semaj-op delirium with fever overnight. Patient seen/examined bedside. Patient mental status better than yesterday. aaox 2-3 oriented , calm , copearitve, follow commmands. Orthopedics follwoing. Her lower extremity is no swelling. Her surgical site looks same ?bruise. She is not hypoxic and does not use accessory muscles. Patient is being followed in semaj-operative fever management. Panculture, empiric unasyn pending cultures, monitor for fever. Chest xray negative for acute pathology. Encourage incentive spirometry. DVT prophyalxis as per orthopedics on eliquis. Bedoya catheter discontinued. Follow PT and orthopedics recs for dc planning.
--- NOTE | 2017-11-29 07:51 | PN- Orthopedic ---
Subjective Subjective: PT IN BED IN RESTRAINTS STILL DUE TO CONFUSION AND TRYING TO PULL OUT IV AND PULL DOWN DRESSING. STILL CHANGE IN MENTAL STATUS, ORIENTED TO PERSON AND PLACE BUT DOES NOT KNOW WHAT MONTH IT IS. TOLERATING PO. WAS UNABLE TO GET OUT OF BED WITH PT YESTERDAY, WILL TRY AGAIN TODAY. VOIDING, NO BM YET Objective Vital Signs and I&Os Vital Signs Date Time Temp Pulse Resp B/P B/P Pulse O2 O2 Flow FiO2 Mean Ox Delivery Rate 11/29 0643 100.4 81 20 120/76 92 Room Air 11/29 0014 99.2 11/28 2259 101.5 98 20 142/82 96 Room Air 11/28 2200 100.0 11/28 2141 100.0 11/28 2042 101.5 11/28 1600 Room Air 11/28 1513 98.6 84 18 110/62 96 11/28 1342 Room Air 11/28 0903 99.0 Intake & Output 11/29 0800 11/29 0000 11/28 1600 11/28 0800 11/28 0000 11/27 1600 Intake Total 640 750 880 640 880 430 Output Total 550 275 270 989 1788 350 Balance 90 475 130 -60 -120 80 Intake, IV 400 150 400 400 400 400 Intake, Oral 240 600 480 240 480 30 Number 0 0 0 Bowel Movements Output, Urine 550 275 004 570 2648 350 Physical Exam: GEN-NAD, MENTAL STATUS CHANGE RESP-CLEAR CARDIO-RRR ABD-SOFT, NONTENDER EXT- R HIP DRESSING CHANGED, ARJUN IN PLACE, NO DRAINAGE OR SURROUNDING ERYTHEMA. SOME ECHYMOSIS. TENDER TO PALPATION. DISTAL SENSATION INTACT. Assessment/Plan Assessment/Plan 77 y/o female with multiple medical comorbidities admitted with right comminuted displaced subcapital femoral neck fracture POD # 2 s/p right hip hemiarthroplasty. - Regular diet as tolerated - May be OOB WITH ASSIST, WBAT to RLE, Cont working with PT daily - Posterior hip precautions to RLE - Monitor temperature and mental status - Medical management as per primary team - DVT ppx - recommend Eliquis BID over HSQ - Will need SNF on d/c Core Measures Venous Thromboembolism VTE Risk Factors Age>40 No Mechanical VTE Prophylaxis d/t N/A MechProphylax Ordered No VTE Pharm Prophylaxis d/t NA PharmProphylax ordered
[2017-11-29 09:04] LABS: ABSOLUTE BASOPHIL COUNT 0 /CUMM (0.0-0.2); ABSOLUTE EOSINOPHIL COUNT 0.2 /CUMM (0.0-0.7); ABSOLUTE GRANULOCYTE CT 6.7 /CUMM (1.4-6.5); ABSOLUTE LYMPH COUNT 1.2 /CUMM (1.2-3.4); ABSOLUTE MONOCYTE COUNT 0.7 /CUMM (0.10-0.60); MEAN CORPUSCULAR HGB 21.7 PG (27.0-31.0)
[2017-11-29 09:35] LABS: BASOPHIL % 0.2 % (0.0-2.0); EOSINOPHIL % 2.7 % (0-5); GRANULOCYTE % 75.2 % (42.2-75.2); HEMATOCRIT 21.3 % (37-47); MEAN CORPUSCULAR VOLUME 69.9 FL (81.0-99.0); MEAN PLATELET VOLUME 8.8 FL (7.4-10.4); PLATELET COUNT 155 /CUMM (130-400); RBC DISTRIBUTION WIDTH 16.6 % (11.5-14.5); RED BLOOD CELL CT 3.04 /CUMM (4.20-5.40); WHITE BLOOD CELL COUNT 8.9 /CUMM (4.8-10.8)
[2017-11-29 10:45] VITALS: BP 100/68
[2017-11-29 11:15] VITALS: BP 104/68
[2017-11-29 13:29] VITALS: BP 104/68
[2017-11-29 20:06] LABS: ABSOLUTE BASOPHIL COUNT 0 /CUMM (0.0-0.2); ABSOLUTE EOSINOPHIL COUNT 0.3 /CUMM (0.0-0.7)
[2017-11-29 20:10] LABS: ABSOLUTE GRANULOCYTE CT 7.9 /CUMM (1.4-6.5); ABSOLUTE LYMPH COUNT 2.6 /CUMM (1.2-3.4); BASOPHIL % 0.1 % (0.0-2.0); EOSINOPHIL % 2.3 % (0-5); GRANULOCYTE % 66.7 % (42.2-75.2); MEAN CORPUSCULAR HGB CONC 31.2 G/DL (33.0-37.0); MEAN CORPUSCULAR VOLUME 70.6 FL (81.0-99.0); MEAN PLATELET VOLUME 8.6 FL (7.4-10.4); PLATELET COUNT 200 /CUMM (130-400); RBC DISTRIBUTION WIDTH 17.3 % (11.5-14.5); RED BLOOD CELL CT 3.75 /CUMM (4.20-5.40); WHITE BLOOD CELL COUNT 11.9 /CUMM (4.8-10.8)
[2017-11-29 20:12] LABS: HEMATOCRIT 26.5 % (37-47)
[2017-11-29 22:47] VITALS: BP 108/70
[2017-11-30 06:21] VITALS: BP 106/67
[2017-11-30 08:34] LABS: ABSOLUTE BASOPHIL COUNT 0 /CUMM (0.0-0.2); ABSOLUTE EOSINOPHIL COUNT 0.3 /CUMM (0.0-0.7); ABSOLUTE GRANULOCYTE CT 6.6 /CUMM (1.4-6.5); ABSOLUTE LYMPH COUNT 1.7 /CUMM (1.2-3.4); ABSOLUTE MONOCYTE COUNT 0.8 /CUMM (0.10-0.60); BASOPHIL % 0.3 % (0.0-2.0); EOSINOPHIL % 2.9 % (0-5); GRANULOCYTE % 70.3 % (42.2-75.2); HEMATOCRIT 26.4 % (37-47); MEAN CORPUSCULAR HGB CONC 30.7 G/DL (33.0-37.0); MEAN CORPUSCULAR VOLUME 71.6 FL (81.0-99.0); PLATELET COUNT 202 /CUMM (130-400); RBC DISTRIBUTION WIDTH 18.1 % (11.5-14.5); RED BLOOD CELL CT 3.69 /CUMM (4.20-5.40); WHITE BLOOD CELL COUNT 9.4 /CUMM (4.8-10.8)
--- NOTE | 2017-11-30 08:43 | PN- Orthopedic ---
Subjective Subjective: Still restrained, complaints of mild right hip pain with motion and palpation, no acute events Objective Vital Signs and I&Os Vital Signs Date Time Temp Pulse Resp B/P B/P Pulse O2 O2 Flow FiO2 Mean Ox Delivery Rate 11/30 0621 98.8 76 20 106/67 95 11/29 2247 98.2 78 20 108/70 94 Room Air 11/29 1329 98.5 84 18 104/68 95 Room Air Room Air 11/29 1115 98.9 72 18 104/68 96 Room Air Room Air 11/29 1045 99.4 74 18 100/68 96 Room Air Room Air 11/29 0936 98.9 Intake & Output 11/30 1600 11/30 0800 11/30 0000 11/29 1600 11/29 0800 11/29 0000 Intake Total 640 1150 640 750 Output Total 400 550 275 Balance 640 750 90 475 Intake, Blood 350 Product Intake, IV 400 200 400 150 Intake, Oral 240 600 240 600 Number 0 Bowel Movements Output, Urine 400 550 275 Patient 202 lb Weight Physical Exam: Well-developed well-nourished no apparent distress. HEENT: Atraumatic, extraocular motion intact Neck: Supple, no lymphadenopathy Respiratory: No respiratory distress Extremities: No edema RIGHT lower extremity hip dressing in place, Dressing clean dry and intact Incision without erythema Mild thigh swelling No signs of infection. No shortening or rotation. Abduction pillow in place Hip range of motion is limited and without unexpected pain Neurovascularly intact distally Bilateral calves are supple, nontender. Neuro: Alert and oriented x3 Skin: Warm and dry, no rash on exposed skin Assessment/Plan Assessment/Plan 77 y/o female with multiple medical comorbidities admitted with right comminuted displaced subcapital femoral neck fracture POD # 3 s/p right hip hemiarthroplasty. OOB WITH ASSIST, WBAT to RLE, Cont working with PT daily Posterior hip precautions to RLE h/h stable Medical management as per primary team Eliquis for DVT prophylaxis for the next 4-6 weeks Outpatient follow-up at 2 weeks postop. We'll sign off, please call with questions Core Measures Venous Thromboembolism VTE Risk Factors Age>40 No Mechanical VTE Prophylaxis d/t N/A MechProphylax Ordered No VTE Pharm Prophylaxis d/t NA PharmProphylax ordered
--- NOTE | 2017-11-30 10:10 | PN- Housestaff ---
Dutch PAULSON,Janet 11/30/17 1010: Subjective Follow-up For: POST OP FEVER AND DELIRIUM RIGHT HIP HEMIARTHROPLASTY SP FALL Subjective: PATIENT STILL CONFUSED AND LETHARGIC. RECEIVED ONE UNIT OF BLOOD YESTERDAY AND HB IS NOW 8.3. PATIENT HAS NOT HAD BOWEL MOVEMENT FOR 4 DAY. Review of Systems Constitutional: Reports: no symptoms. Musculoskeletal: Reports: muscle pain. Neurological/Psychological: Reports: confusion. Objective Last 24 Hrs of Vital Signs/I&O Vital Signs Date Time Temp Pulse Resp B/P B/P Pulse O2 O2 Flow FiO2 Mean Ox Delivery Rate 11/30 0621 98.8 76 20 106/67 95 11/29 2247 98.2 78 20 108/70 94 Room Air 11/29 1329 98.5 84 18 104/68 95 Room Air Room Air Intake & Output 11/30 1600 11/30 0800 11/30 0000 Intake Total 640 Output Total Balance 640 Intake, IV 400 Intake, Oral 240 Physical Exam General Appearance: Alert, Cooperative, No Acute Distress Skin: No Rashes, No Breakdown, No Significant Lesion Skin Temp/Moisture Exam: Warm/Dry HEENT: Atraumatic, PERRLA Cardiovascular: Regular Rate, Normal S1, Normal S2, No Murmurs Lungs: Clear to Auscultation, Normal Air Movement Abdomen: Normal Bowel Sounds, Soft, No Tenderness Neurological: Normal Speech Extremities: No Clubbing, No Cyanosis, No Edema Current Medications: Current Medications Sig/Danyell Start time Last Medication Dose Route Stop Time Status Admin Acetaminophen 1,000 MG Q6P PRN 11/30 0945 CAN N/A 1 UNIT IV Acetaminophen 1,000 MG Q6P PRN 11/28 1045 AC N/A 1 UNIT IV Acetaminophen 650 MG Q6P PRN 11/26 2145 AC 11/28 PO 2042 Ampicillin Sodium/ 3,000 MG Q6H 11/29 1400 AC 11/30 Sulbactam Sodium IV 0747 Sodium Chloride 100 ML Ampicillin Sodium/ 3,000 MG Q6 11/29 1200 DC 11/29 Sulbactam Sodium IV 1348 Sodium Chloride 100 ML Apixaban 2.5 MG BID 11/28 1000 AC 11/29 PO 211 Bisacodyl 10 MG ONCE ONE 11/30 0630 DC 11/30 IN 11/30 0631 0747 Calcium Carbonate 500 MG TID 11/27 1000 AC 11/29 PO 211 Cholecalciferol 1,000 IU DAILY 11/27 1000 AC 11/29 PO 0859 Dicyclomine HCl 10 MG TID 11/27 1000 DC 11/29 PO 2111 Diphenhydramine HCl 25 MG Q6H PRN 11/26 2315 AC PO Docusate Sodium 100 MG DAILY 11/30 1000 AC PO Docusate Sodium 100 MG TID PRN 11/26 2315 AC PO Lamotrigine 100 MG DAILY 11/27 1000 AC 11/29 PO 0859 Oxycodone/ 1 TAB Q6P PRN 11/26 2145 DC 11/30 Acetaminophen PO 0611 Polyethylene Glycol 17 GM DAILY 11/28 1107 AC 11/29 PO 0859 Quetiapine Fumarate 25 MG AT BEDTIME 11/27 2199 AC 11/29 PO 2111 Senna 187 MG AT BEDTIME 11/28 2199 AC 11/29 PO 2111 Sertraline HCl 150 MG DAILY 11/27 1000 AC 11/29 PO 0900 Sodium Chloride 1,000 ML Q20H 11/28 1400 DC 11/30 IV 0522 Last 24 Hrs of Lab/Ryan Results Last 24 Hrs of Labs/Mics: Laboratory Tests 11/30/17 0710: Anion Gap 10, Estimated GFR > 60, BUN/Creatinine Ratio 21.4, CBC w Diff NO MAN DIFF REQ, RBC 3.69 L, MCV 71.6 L, MCH 22.0 L, RDW 18.1 H, MPV 9.0, Gran % 70.3, Lymphocytes % 17.7 L, Monocytes % 8.8, Eosinophils % 2.9, Basophils % 0.3 , Absolute Granulocytes 6.6 H, Absolute Lymphocytes 1.7, Absolute Monocytes 0.8 H, Absolute Eosinophils 0.3, Absolute Basophils 0, PUBS MCHC 30.7 L 11/29/17 1918: CBC w Diff NO MAN DIFF REQ, RBC 3.75 L, MCV 70.6 L, MCH 22.0 L, RDW 17.3 H, MPV 8.6, Gran % 66.7, Lymphocytes % 22.2, Monocytes % 8.7, Eosinophils % 2.3, Basophils % 0.1, Absolute Granulocytes 7.9 H, Absolute Lymphocytes 2.6, Absolute Monocytes 1.0 H, Absolute Eosinophils 0.3, Absolute Basophils 0, PUBS MCHC 31.2 L Assessment/Plan Assessment: Assessment: The patient is a 77-year-old female with past medical history of hypertension, hyperlipidemia, 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 She is presenting to [facility] ED on 11/26 with complaint of right hip pain secondary to fall. -VS WNL -Pertinent labs hb 10.2, wbc 8.4, MCV 69.5 MCH 21, sodium 143 PLAN #Mechanical fall resulting in right femoral neck fracture Orthopedics on board. She underwent moderate risk surgery of right hip hemiarthroplasty. -diet was advanced -MET score 4, RCRI patient score only 1 ponint for CVA history; Class II Risk with 0.9 % Risk of Major Cardiac Event. -Pain pathway with tylenol, percocet and dilaudid, lidocaine patch -As per surgery we have switched AC with heparin to abixiban 2.5mg bid. -Orthopedic follow-up -PT evaluation post surgery said patient needs SNF. -CALL [phone] RISHABH THE SON for any updates #post op fever and confusion: post op pneumonia/aspiration/PE/medication reaction/electrolyte imbalance/atelectasis/uti/surgical site infection? 95 sat on RA today and AFEBRILE OVERNIGHT 98.8. -FLUIDS HAVE BEEN DC'D -avoid opiates -patient received abx during surgery keflex one dose -we will CONTINUE EMPIRIC unasyn pending cultures as patient has 2 days recurrence of fever. It is to be noted that some of the literature says no antibiotics in first 3-4 days after surgery as fever may be secondary to lingering cytokine release. -continue incentive spirometry -cxr showed no evidence of pneumonia; no acute pulmonary findings -dc'D bedoya to decrease chances of infection -WE DC'D PATIENTS PAIN MEDS AND DICYCLOMINE WHICH COULD CAUSE CONFUSION. -PT OFF RESTRAINTS -PATIENT HAS RECURRENCE OF FEVER TODAY TO 100.6 AFTER SHE HAD GOTTEN TYLENOL FOR PAIN. SHE ALSO CONTINUED TO BE DISORIENTED SO WE DECIDED TO DO A CT HEAD WITHOUT CONTRAST, EEG SHE HAS HISTORY OF SEIZURE. WE WILL CALL THE FAMILY TO CONFIRM PREVIOUS MENTAL STATUS. -WE DID PLACE CONSULT WITH PSYCH WHO REQUESTED WE COMPLETE MEDICAL WORKUP BEFORE HE SEES HER. WE INITIALLY DID WANT HIM TO COME FOR HER HISTORY OF DEPRESSION ( QUESTION OF DEPRESSION RELATED DEMENTIA?) #ANEMIA -patient found YESTERDAY to have Hb to 6.6, NOW 8.3 -Transfused one unit -KEPP HB ABOVE 8. -Admission Hb is 11.2 and post surgery was 7.9. -Source of bleeding? -guaic all stools #Chronic medical conditions GERD and anxiety along with bipolar depression, insomnia, neuropathy, Continue TUMS, Bentyl, Xanax, sertraline, Lamictal, Seroquel, melatonin, Lyrica, artificial tears #constipation bowel regimen ordered SUPPOSITORY GIVEN TODAY DVT prophylaxis with heparin subcutaneous Problem List: 1. Confusion, postoperative 2. Femoral neck fracture Pain Ratin Pain Location: RIGHT HIP Pain Goal: Pain 4 or less Pain Plan: PRN Tomorrow's Labs & Rationales: CBC BEP Rachel Escamilla 11/30/17 1254: Attending MD Review Statement Attending Statement Attending MD Statement: examined this patient, discuss w/resident/PA/HEALTH SAFETY AND ENVIRONMENT MANAGER, agreed w/resident/PA/HEALTH SAFETY AND ENVIRONMENT MANAGER, discussed with family, reviewed EMR data (avail), discussed with nursing, discussed with case mgmt, reviewed images, amended to note Attending Assessment/Plan: Patient afebrile for past 24 hrs. Patient on empiric unasyn penidng cultures. She had bowel movement with relief in constipation. Patient received blood transfusion PRBC for acute blood loss anemia likely post operative. Monitor mental status and fever, PT f/u and trial off restraints. Disconitnue meds which can cause depressed mental status. pyshc evaluation for delirium in semaj- operative period.
[2017-11-30 14:47] VITALS: BP 156/90
--- NOTE | 2017-11-30 17:01 | CT SCAN REPORT ---
EXAMINATION: CT HEAD WITHOUT CONTRAST CLINICAL INFORMATION: Delirium. COMPARISON: 11/26/2017. TECHNIQUE: Contiguous helical images of the brain were obtained without IV contrast. Multiplanar reconstructions were performed. DLP: 630 mGy-cm. FINDINGS: There are no pathologic extra-axial fluid collections. The lateral, third, fourth ventricles are prominent, though stable, age-appropriate and concordant with the appearance of the sulci. There is no evidence for acute intraparenchymal hemorrhage or infarct. There is neither mass nor mass effect. There is no shift of midline structures. The paranasal sinuses and mastoid air cells are clear. There are no osseous lesions. IMPRESSION: No evidence for acute intracranial injury. Stable appearance of the brain.
[2017-11-30 22:40] VITALS: BP 142/86
[2017-12-01 05:21] VITALS: BP 138/70
[2017-12-01 08:27] LABS: ABSOLUTE BASOPHIL COUNT 0 /CUMM (0.0-0.2); ABSOLUTE EOSINOPHIL COUNT 0.3 /CUMM (0.0-0.7); ABSOLUTE GRANULOCYTE CT 4.6 /CUMM (1.4-6.5); ABSOLUTE MONOCYTE COUNT 0.5 /CUMM (0.10-0.60); BASOPHIL % 0 % (0.0-2.0); GRANULOCYTE % 54.6 % (42.2-75.2); HEMATOCRIT 25.3 % (37-47); MEAN CORPUSCULAR HGB 22.4 PG (27.0-31.0); MEAN CORPUSCULAR HGB CONC 31.7 G/DL (33.0-37.0); MEAN CORPUSCULAR VOLUME 70.6 FL (81.0-99.0); MEAN PLATELET VOLUME 8.6 FL (7.4-10.4); PLATELET COUNT 215 /CUMM (130-400); RBC DISTRIBUTION WIDTH 17.4 % (11.5-14.5); RED BLOOD CELL CT 3.59 /CUMM (4.20-5.40); WHITE BLOOD CELL COUNT 8.5 /CUMM (4.8-10.8)
--- NOTE | 2017-12-01 12:34 | PN- Housestaff ---
Dutch PAULSON,Janet 12/01/17 1234: Subjective Follow-up For: post op fever and confusion right hip hemiarthroplasty anemia Subjective: patient remains confused today and somewhat agitated on and off. she is oriented to person and only knows she is in a hospital but unsure which one. call was placed to family for update yesterday and today and no answer. she called her family and also got no answer. Review of Systems Constitutional: Reports: fever, weakness. EENTM: Reports: no symptoms. Cardiovascular: Reports: no symptoms. Gastrointestinal: Reports: no symptoms. Skin: Reports: no symptoms. Neurological/Psychological: Reports: confusion. Objective Last 24 Hrs of Vital Signs/I&O Vital Signs Date Time Temp Pulse Resp B/P B/P Pulse O2 O2 Flow FiO2 Mean Ox Delivery Rate 12/01 0901 Room Air 12/01 0521 100.4 79 20 138/70 95 Room Air 12/01 0200 99.8 11/30 2240 99.8 86 20 142/86 95 Room Air 11/30 1915 99.6 11/30 1821 101.1 11/30 1553 Room Air 11/30 1447 100.6 84 20 156/90 94 11/30 1414 99.2 Intake & Output 12/01 1600 12/01 0800 12/01 0000 Intake Total 360 360 Output Total Balance 360 360 Intake, IV 120 120 Intake, Oral 240 240 Physical Exam General Appearance: Alert, No Acute Distress Skin: No Rashes, No Breakdown, resolving hematoma near incision site right hip Skin Temp/Moisture Exam: Warm/Dry Cardiovascular: Regular Rate, Normal S1, Normal S2, No Murmurs Lungs: Clear to Auscultation, Normal Air Movement Abdomen: Normal Bowel Sounds, Soft, No Tenderness Neurological: Normal Speech Extremities: No Clubbing, No Cyanosis, No Edema, Normal Pulses, No Tenderness/ Swelling Current Medications: Current Medications Sig/Danyell Start time Last Medication Dose Route Stop Time Status Admin Acetaminophen 650 MG .STK-MED ONE 12/01 0450 DC PO 12/01 0451 Acetaminophen 1,000 MG Q6P PRN 11/28 1045 AC 11/30 N/A 1 UNIT IV 1816 Acetaminophen 650 MG Q6P PRN 11/26 2145 AC 12/01 PO 0451 Ampicillin Sodium/ 3,000 MG Q6H 12/01 0400 AC 12/01 Sulbactam Sodium IV 1112 Sodium Chloride 100 ML Ampicillin Sodium/ 3,000 MG Q6H 11/29 1400 DC 11/30 Sulbactam Sodium IV 2141 Sodium Chloride 100 ML Apixaban 2.5 MG BID 11/28 1000 AC 12/01 PO 1111 Calcium Carbonate 500 MG TID 11/27 1000 AC 12/01 PO 1110 Cholecalciferol 1,000 IU DAILY 11/27 1000 AC 12/01 PO 1111 Diphenhydramine HCl 25 MG Q6H PRN 11/26 2315 AC PO Docusate Sodium 100 MG DAILY 11/30 1000 AC 11/30 PO 1227 Docusate Sodium 100 MG TID PRN 11/26 2315 AC 11/30 PO 2141 Ibuprofen 600 MG ONCE ONE 12/01 1015 DC PO 12/01 1016 Ketorolac 15 MG ONCE ONE 12/01 1000 DC 12/01 Tromethamine IV 12/01 1001 1110 Lamotrigine 100 MG DAILY 11/27 1000 AC 12/01 PO 1111 Polyethylene Glycol 17 GM DAILY 11/28 1107 AC 11/30 PO 1226 Quetiapine Fumarate 25 MG AT BEDTIME 11/27 2200 AC 11/30 PO 2141 Senna 187 MG AT BEDTIME 11/280 AC 11/30 PO 2141 Sertraline HCl 150 MG DAILY 11/27 1000 AC 12/01 PO 1111 Sodium Chloride 1,000 ML Q13H 12/01 1000 AC 12/01 IV 1117 Last 24 Hrs of Lab/Ryan Results Last 24 Hrs of Labs/Mics: Laboratory Tests 12/01/17 0714: Anion Gap 12, Estimated GFR > 60, BUN/Creatinine Ratio 21.3, CBC w Diff NO MAN DIFF REQ, RBC 3.59 L, MCV 70.6 L, MCH 22.4 L, MCHC 31.7 L, RDW 17.4 H, MPV 8.6, Gran % 54.6, Lymphocytes % 36.0, Monocytes % 6.4, Eosinophils % 3.0, Basophils % 0, Absolute Granulocytes 4.6, Absolute Lymphocytes 3.0, Absolute Monocytes 0.5, Absolute Eosinophils 0.3, Absolute Basophils 0 Assessment/Plan Assessment: Assessment: The patient is a 77-year-old female with past medical history of hypertension, hyperlipidemia, 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 She is presenting to [facility] ED on 11/26 with complaint of right hip pain secondary to fall. -VS WNL -Pertinent labs hb 10.2, wbc 8.4, MCV 69.5 MCH 21, sodium 143 PLAN #Mechanical fall resulting in right femoral neck fracture Orthopedics on board. She underwent moderate risk surgery of right hip hemiarthroplasty. -diet was advanced -MET score 4, RCRI patient score only 1 ponint for CVA history; Class II Risk with 0.9 % Risk of Major Cardiac Event. -Pain pathway with tylenol, percocet and dilaudid, lidocaine patch -As per surgery we have switched AC with heparin to abixiban 2.5mg bid. -Orthopedic follow-up -PT evaluation post surgery said patient needs SNF. -CALL [phone] RISHABH THE SON for any updates - we have attempted to contact to no avail. #post op fever and confusion: post op pneumonia/aspiration/PE/medication reaction/electrolyte imbalance/atelectasis/uti/surgical site infection? -FLUIDS HAVE BEEN DC'D -avoid opiates -patient received abx during surgery keflex one dose -we will CONTINUE EMPIRIC unasyn pending cultures as patient has 3-4 DAYS RECURRENCE OF FEVER. TO BE NOTED, IV FELL OUT TODAY AND WE WILL ATTEMPT TO REGAIN ACCESS BUT FOR NOW WILL HOLD UNASYN UNTIL RECOMMENDATIONS FROM DR. RECIO WHO WE ARE CONSULTING TODAY FOR PERSISTENCE OF FEVER. -continue incentive spirometry -cxr showed no evidence of pneumonia; no acute pulmonary findings -dc'D bedoya to decrease chances of infection -WE DC'D PATIENTS PAIN MEDS AND DICYCLOMINE WHICH COULD CAUSE CONFUSION. -PT OFF RESTRAINTS -PATIENT HAS RECURRENCE OF FEVER TODAY 12/01 TO 100.4. SHE ALSO CONTINUED TO BE DISORIENTED. -CT HEAD WITHOUT CONTRAST was negative for acute process -EEG SHE HAS HISTORY OF SEIZURE was not done yesterday as fingerprint technician had left for the day. -We know patient's previous mental status was AOx3 with only the beginnings of mild dementia. -WE DID PLACE CONSULT WITH PSYCH WHO REQUESTED WE COMPLETE MEDICAL WORKUP BEFORE HE SEES HER. TODAY THE PATIENT REMAINS CONFUSED SO CALL WAS PLACED TO PSYCH AND THEY SAID THEY WILL SEE HER TOMORROW. WE WILL CONTINUE WORKUP WITH ID CONSULT. -HOLD DOING CTA FOR PE OR FAT EMBOLISM UNTIL ID SEES THE PATIENT. PATIENT IS NOT HYPOXEMIC BUT PER LITERATURE ONLY SIGN IN ELDERLY ESPECIALLY MAY BE AMS. #ANEMIA -patient found YESTERDAY to have Hb to 6.6, NOW 8.3 -Transfused one unit -KEPP HB ABOVE 8. -Admission Hb is 11.2 and post surgery was 7.9. -guaic NEGATIVE -GAVE LOW DOSE IBUPROFEN TODAY TYLENOL WAS NOT WORKING AND WE DO NOT WANT TO GIVE OPIATES TO THIS ALTERED PATIENT. MONITOR HB AND CONTINUE TO GUAIC STOOLS. #Chronic medical conditions GERD and anxiety along with bipolar depression, insomnia, neuropathy, Continue TUMS, Bentyl, sertraline, Lamictal, Seroquel, melatonin, Lyrica, artificial tears #constipation bowel regimen SUPPOSITORY GIVEN DVT prophylaxis with heparin subcutaneous Problem List: 1. Confusion, postoperative 2. Femoral neck fracture Pain Ratin Pain Location: right hip Pain Goal: Pain 4 or less Pain Plan: tylenol and ibuprofen one dose Tomorrow's Labs & Rationales: cbc bep Rachel Escamilla 12/01/17 1249: Attending MD Review Statement Attending Statement Attending MD Statement: examined this patient, discuss w/resident/PA/GEAR MILLING MACHINE SET UP OPERATOR, agreed w/resident/PA/GEAR MILLING MACHINE SET UP OPERATOR, discussed with family, reviewed EMR data (avail), discussed with nursing, discussed with case mgmt, reviewed images, amended to note Attending Assessment/Plan: Patient seen/examined bedside. Patient denies any chest pain but c/o hip pain. She is aaox 2 oriented today. Her opiods has been discontinued alongwith sedating meds. Patient has h/o bipolar disorder and is on multiple pysch meds. She is on lamotrigine for seizure disorder. Patient did spike of temp 100.4 D3 today. Patient on empiric unasyn penidng cultures which are so far negative. She had bowel movement with relief in constipation. Patient received blood transfusion PRBC for acute blood loss anemia likely post operative. Monitor mental status and fever, PT f/u and trial off restraints. Disconitnued meds which can cause depressed mental status. pyshc evaluation for delirium in semaj-operative period.
[2017-12-01 13:55] VITALS: BP 102/60
--- NOTE | 2017-12-01 16:36 | Cons- Infect Disease ---
General Information and HPI Consulting Request Date of Consult: 12/01/17 Requested By: Rachel Escamilla MD Reason for Consult: Postop fever Source of Information: patient Exam Limitations: confusion History of Present Illness: This is a 77-year-old woman, assisted living resident, with a history of hyperlipidemia, status post CVA with right lower extremity weakness, obstructive sleep apnea, osteoporosis, GERD, anxiety and bipolar disorder, with frequent falls, admitted on November 26 after a fall, resulting in right hip pain. On admission she was afebrile. Laboratory data revealed a white blood cell count of 9000, BUN/creatinine 25 and 1.0, with normal liver enzymes, coags normal. Urinalysis [address] of the head revealed ventriculomegaly, with no acute process. CT of the cervical spine was negative for any acute process. CT of the pelvis revealed a right femoral neck fracture. Chest x-ray was negative. She was taken to the OR on November 27 for a right hip hemiarthroplasty, with Cefazolin prophylaxis. Her postop course has been complicated by fevers, beginning November 28, confusion/agitation and a decrease in her H&H, requiring 1 unit of blood. At present she complains of pain in both legs but denies any respiratory, GI or symptoms. Allergies/Medications Allergies: Coded Allergies: STATINS (UNKNOWN 06/05/14) cetirizine (From ZYRTEC) (UNKNOWN 07/09/16) nut - unspecified (ITCHING 07/09/16) Home Med List: Acetaminophen (Tylenol) 325 MG TABLET 2 TAB PO Q6H PRN PAIN (Reported) Alprazolam (Xanax) 0.5 MG TABLET 1 TAB PO Q6H PRN ANXIETY (Reported) Aspirin (Ecotrin*) 81 MG TABLET.DR 1 TAB PO DAILY HEART/BLOOD (Reported) Calcium Carbonate (TUMS) 200 MG CALCIUM (500 MG) TAB.CHEW 1 TAB PO TID GI ( Reported) Cholecalciferol (Vitamin D3) 1,000 UNIT TABLET 1 TAB PO DAILY SUPPLEMENT ( Reported) Cyclosporine (Restasis) 0.05 % DROPERETTE 1 GTT OU BID BOTH EYES (Reported) Dicyclomine Hydrochloride (Bentyl) 10 MG CAPSULE 1 CAP PO TID GI (Reported) Difluprednate (Durezol) 0.05 % DROPS 1 GTT OU 4XDAILY BOTH EYES (Reported) diphenhydrAMINE HCl (Benadryl) 25 MG CAPSULE 1 CAP PO Q6H PRN ITCHINESS ( Reported) Docusate Sodium (Colace) 100 MG CAPSULE 1 CAP PO TID PRN STOOL SOFTENER ( Reported) Lamotrigine (Lamictal) 100 MG TABLET 1 TAB PO DAILY MENTAL HEALTH (Reported) Loperamide HCl (Loperamide) 2 MG CAPSULE 2 CAP PO Q4H PRN LOOSE STOOLS ( Reported) Loratadine (Claritin) 10 MG TABLET 1 TAB PO DAILY ALLERGIES (Reported) Melatonin 3 MG TABLET 1 TAB PO QHS SLEEP (Reported) Methylcellulose (With Sugar) (Citrucel Powder) 850 GM POWDER 2 GM PO TID PRN GI (Reported) Mirabegron (Myrbetriq) 50 MG TAB.ER.24H 1 TAB PO QHS BLADDER (Reported) Polyethylene Glycol 3350 (Miralax) 17 GRAM POWD.PACK 1 PAC PO DAILY PRN GI ( Reported) dissolve in water Pregabalin (Lyrica) 25 MG CAPSULE 1 CAP PO AD NERVE PAIN (Reported) Quetiapine Fumarate 25 MG TABLET 1 TAB PO QHS MENTAL HEALTH (Reported) Sertraline HCl 100 MG TABLET 1.5 TAB PO DAILY MENTAL HEALTH (Reported) Past History Travel History Traveled to [place] past 21 day No Medical History Blood Transfusion Hx: No Neurological: CVA (left with right hemiparesis) Cardiovascular: hypertension, hyperlipidemia Respiratory: obstructive sleep apnea, INSOMNIA Gastrointestinal: GERD Musculoskeletal: osteoarthritis Psychiatric: anxiety, bipolar disease, depression History of MRSA: No History of VRE: No History of CDIFF: No Isolation History: Standard Influenza Vaccine: 10/07/17 Surgical History Surgical History: cholecystectomy, tonsillectomy Psychosocial History Where Do You Live? Assisted Living Who Do You Live With? self Services at Home: Home Health Aide Primary Language: Danish Smoking Status: Never Smoked ETOH Use: denies use Illicit Drug Use: denies illicit drug use Functional Ability ADLs Independent: dressing, eating, toileting, bathing. Ambulation: walker IADLs Needs Assist: shopping, housework, finances, food prep, telephone, transportation, medication admin. Review of Systems Review of Systems All Other Systems: Reviewed and Negative Exam & Diagnostic Data Last 24 Hrs of Vital Signs/I&O Vital Signs Date Time Temp Pulse Resp B/P B/P Pulse O2 O2 Flow FiO2 Mean Ox Delivery Rate 12/01 1355 98.3 75 18 102/60 98 12/01 0901 Room Air 12/01 0521 100.4 79 20 138/70 95 Room Air 12/01 0200 99.8 11/30 2240 99.8 86 20 142/86 95 Room Air 11/30 1915 99.6 11/30 1821 101.1 Intake & Output 12/01 1600 12/01 0800 12/01 0000 Intake Total 360 360 Output Total Balance 360 360 Intake, IV 120 120 Intake, Oral 240 240 Physical Exam Other Physical Findings: MAXIMUM TEMPERATURE 101.1. She is awake and alert, disoriented to place and time, but in no acute distress. Skin reveals no rash. HEENT negative. Neck is supple with no adenopathy. Lungs slightly decreased breath sounds at the left base. Heart regular rhythm with no murmur. Abdomen is soft, nontender with positive bowel sounds. Back no CVA tenderness. Extremities right hip incision clean, with no erythema, drainage, tenderness or surrounding ecchymosis; no cyanosis, clubbing or edema. Neuro mild right hemiparesis. Last 24 Hours of Lab Results: Laboratory Tests 12/01 0714 Chemistry Sodium (137 - 145 mmol/L) 143 Potassium (3.5 - 5.1 mmol/L) 3.7 Chloride (98 - 107 mmol/L) 105 Carbon Dioxide (22 - 30 mmol/L) 25 Anion Gap (5 - 16) 12 BUN (7 - 17 mg/dL) 17 Creatinine (0.5 - 1.0 mg/dL) 0.8 Estimated GFR (>60 ml/min) > 60 BUN/Creatinine Ratio (7 - 25 %) 21.3 Hematology CBC w Diff NO MAN DIFF REQ WBC (4.8 - 10.8 /CUMM) 8.5 RBC (4.20 - 5.40 /CUMM) 3.59 L Hgb (12.0 - 16.0 G/DL) 8.0 L Hct (37 - 47 %) 25.3 L MCV (81.0 - 99.0 FL) 70.6 L MCH (27.0 - 31.0 PG) 22.4 L MCHC (33.0 - 37.0 G/DL) 31.7 L RDW (11.5 - 14.5 %) 17.4 H Plt Count (130 - 400 /CUMM) 215 MPV (7.4 - 10.4 FL) 8.6 Gran % (42.2 - 75.2 %) 54.6 Lymphocytes % (20.5 - 51.1 %) 36.0 Monocytes % (1.7 - 9.3 %) 6.4 Eosinophils % (0 - 5 %) 3.0 Basophils % (0.0 - 2.0 %) 0 Absolute Granulocytes (1.4 - 6.5 /CUMM) 4.6 Absolute Lymphocytes (1.2 - 3.4 /CUMM) 3.0 Absolute Monocytes (0.10 - 0.60 /CUMM) 0.5 Absolute Eosinophils (0.0 - 0.7 /CUMM) 0.3 Absolute Basophils (0.0 - 0.2 /CUMM) 0 Last 24 Hours of Ryan Results: Blood cultures 2 November 28 negative Urine culture November 26 negative Diagnostic Data Recent Imaging Findings: CT of the head November 30 no evidence for any acute intraparenchymal hemorrhage or infarct Chest x-ray November [address] of the pelvis November 26 reveals a right femoral neck fracture CT of the head and cervical spine November 26 reveals ventriculomegaly, possibly suggestive of normal pressure hydrocephalus, and moderate to severe degenerative spondylosis related changes at C5-C6 and C4-C5 /C6-C7 Assessment/Plan Assessment/Plan Impression: This is a 77-year-old woman, assisted living resident, status post CVA with right lower extremity weakness, obstructive sleep apnea, osteoporosis, GERD, anxiety and bipolar disorder, with frequent falls admitted on November 26 after a fall, with x-ray and CT of the pelvis revealing a right femoral neck fracture, status post right hip hemiarthroplasty 4 days ago, with her postop course complicated by fevers, confusion and anemia. The etiology of her fevers is unclear. The most likely etiology is a perioperative hematoma, with a report of ecchymosis around the incision and a drop in her H&H, requiring 1 unit of blood. Her white blood cell count did increase transiently, likely related to the blood transfusion, but has otherwise been normal and suggests a noninfectious etiology to her fevers. She has no obvious focus of infection and her recent cultures are negative; therefore her antibiotics can be discontinued. Of note her CT of the head does reveal ventriculomegaly and, given her frequent falls (suggesting possible ataxia) and confusion, though this appears to be of acute onset/ related to her hospitalization/surgery, normal pressure hydrocephalus may need to be considered. Suggestion: 1. Consider Neurology evaluation for normal pressure hydrocephalus 2. Discontinue Unasyn and follow off antibiotics Consult Acknowledgment - Thank you for your consult request.
[2017-12-01 22:29] VITALS: BP 110/70
--- NOTE | 2017-12-01 23:44 | ELECTROENCEPHALOGRAM REPORT ---
Electroencephalogram Report Electroencephalogram Results Date of service: 12/01/17 Attending MD: Rachel Escamilla MD [employer] Coordinator: Chely EEG Number: [id number] Test Utilizes: 10-20 system, 21 lead 18 channel digital recording Pertinent Hx/Physical/Neuro Findings/Clin Diagnosis: Altered mental status, recent surgery Inpatient Medications: Current Medications Sig/Danyell Start time Last Medication Dose Route Stop Time Status Admin Acetaminophen 1,000 MG .STK-MED ONE 12/01 1344 DC IV 12/01 1345 Acetaminophen 650 MG .STK-MED ONE 12/01 0450 DC PO 12/01 0451 Acetaminophen 1,000 MG Q6P PRN 11/28 1045 AC 12/01 N/A 1 UNIT IV 1346 Acetaminophen 650 MG Q6P PRN 11/26 2145 AC 12/01 PO 0451 Ampicillin Sodium/ 3,000 MG Q6H 12/01 0400 DC 12/01 Sulbactam Sodium IV 1112 Sodium Chloride 100 ML Apixaban 2.5 MG BID 11/28 1000 AC 12/01 PO 2049 Calcium Carbonate 500 MG TID 11/27 1000 AC 12/01 PO 2049 Cholecalciferol 1,000 IU DAILY 11/27 1000 AC 12/01 PO 1111 Diphenhydramine HCl 25 MG Q6H PRN 11/26 2315 AC PO Docusate Sodium 100 MG DAILY 11/30 1000 AC 11/30 PO 1227 Docusate Sodium 100 MG TID PRN 11/26 2315 AC 11/30 PO 2141 Ibuprofen 600 MG ONCE ONE 12/01 1015 DC PO 12/01 1016 Ketorolac 15 MG ONCE ONE 12/01 1000 DC 12/01 Tromethamine IV 12/01 1001 1110 Lamotrigine 100 MG DAILY 11/27 1000 AC 12/01 PO 1111 Polyethylene Glycol 17 GM DAILY 11/28 1107 AC 11/30 PO 1226 Quetiapine Fumarate 25 MG AT BEDTIME 11/27 2199 AC 12/01 PO 2050 Senna 187 MG AT BEDTIME 11/28 2199 AC 12/01 PO 2049 Sertraline HCl 150 MG DAILY 11/27 1000 AC 12/01 PO 1111 Sodium Chloride 1,000 ML Q13H 12/01 1000 AC 12/01 IV 2307 Interpretation: The dominant background rhythm is a moderate amplitude fairly regular 6-7 Hz. theta centrally and posteriorly with low voltage beta in the frontal regions and low amplitude irregular alpha frequency amplitude intermixed. Slowing waxes and wanes in a manner consistent with a toxic or metabolic encephalopathy. No focal lateralized or epileptiform abnormalities are seen. Hyperventilation was deferred but photic stimulation was done and unremarkable. Impression: Abnormal due to mild to moderate slowing consistent with a diffuse encephalopathy.
[2017-12-02 05:26] VITALS: BP 142/70
--- NOTE | 2017-12-02 07:58 | PN- Housestaff ---
Dutch PAULSON,Janet 12/02/17 0758: Subjective Follow-up For: post op fever and confusion right hip hemiarthroplasty anemia Subjective: PATIENT IS LESS CONFUSED TODAY. SHE IS AOX2 PERSON AND PLACE BUT NOT TIME. NOTES SHE HAS SLIGHT NAUSEA ON AND OFF. OVERNIGHT SHE AGAIN HAD FEVER TO 100.4. Review of Systems Constitutional: Reports: no symptoms. Cardiovascular: Reports: no symptoms. Respiratory: Reports: no symptoms. Gastrointestinal: Reports: nausea. Genitourinary: Reports: no symptoms. Neurological/Psychological: Reports: confusion. Objective Last 24 Hrs of Vital Signs/I&O Vital Signs Date Time Temp Pulse Resp B/P B/P Pulse O2 O2 Flow FiO2 Mean Ox Delivery Rate 12/02 1430 Room Air 12/02 1420 97.9 77 18 128/80 99 12/02 0526 99.7 79 22 142/70 95 Room Air 12/02 0407 99.7 12/02 0400 99.7 12/02 0250 100.4 12/02 0250 100.4 12/02 0000 Room Air 12/01 2229 99.3 73 20 110/70 98 Room Air Intake & Output 12/02 1600 12/02 0800 12/02 0000 Intake Total 600 705 730 Output Total Balance 600 705 730 Intake, IV 225 250 Intake, Oral 600 480 480 Number 1 Bowel Movements Physical Exam General Appearance: Alert, Cooperative, No Acute Distress Skin: No Rashes, No Breakdown, No Significant Lesion HEENT: Atraumatic, PERRLA, EOMI, Mucous Membr. moist/pink Cardiovascular: Regular Rate, Normal S1, Normal S2, No Murmurs Lungs: Clear to Auscultation, Normal Air Movement Abdomen: Normal Bowel Sounds, Soft, No Tenderness, No Hepatospenomegaly, No Masses Extremities: No Edema, Normal Pulses, No Tenderness/Swelling, RIGHT HIP SURGICAL SITE CLEAN AND DRY Current Medications: Current Medications Sig/Danyell Start time Last Medication Dose Route Stop Time Status Admin Acetaminophen 650 MG .STK-MED ONE 12/02 0250 DC PO 12/02 0251 Acetaminophen 1,000 MG Q6P PRN 11/28 1045 AC 12/01 N/A 1 UNIT IV 1346 Acetaminophen 650 MG Q6P PRN 11/26 2145 AC 12/02 PO 0250 Apixaban 2.5 MG BID 11/28 1000 AC 12/02 PO 0926 Aspirin Buffered 81 MG DAILY 12/02 1040 AC 12/02 PO 1216 Calcium Carbonate 500 MG TID 11/27 1000 AC 12/02 PO 1654 Cholecalciferol 1,000 IU DAILY 11/27 1000 AC 12/02 PO 09 Diphenhydramine HCl 25 MG Q6H PRN 11/26 2315 AC PO Docusate Sodium 100 MG DAILY 11/30 1000 AC 12/02 PO 0930 Docusate Sodium 100 MG TID PRN 11/26 2315 AC 11/30 PO 2141 Lamotrigine 100 MG DAILY 11/27 1000 AC 12/02 PO 925 Mirabegron 50 MG AT BEDTIME 12/02 2200 AC PO Polyethylene Glycol 17 GM DAILY 11/28 1107 AC 12/02 PO 09 Pregabalin 25 MG DAILY 12/03 1000 AC PO Pregabalin 25 MG .[AD] 12/02 1045 DC PO Quetiapine Fumarate 25 MG AT BEDTIME 11/27 2200 AC 12/01 PO 2050 Senna 187 MG AT BEDTIME 11/28 2200 AC 12/01 PO 2048 Sertraline HCl 150 MG DAILY 11/27 1000 AC 12/02 PO 925 Sodium Chloride 1,000 ML Q13H 12/01 1000 DC 12/01 IV 2307 Last 24 Hrs of Lab/Ryan Results Last 24 Hrs of Labs/Mics: Laboratory Tests 12/02/17 0900: Anion Gap 12, Estimated GFR > 60, BUN/Creatinine Ratio 27.1 H, Vitamin B12 Pending, TSH &T3 &Free T4 Intrp Pending, CBC w Diff NO MAN DIFF REQ, RBC 3.80 L , MCV 70.5 L, MCH 22.0 L, MCHC 31.2 L, RDW 17.2 H, MPV 8.7, Gran % 71.7, Lymphocytes % 16.5 L, Monocytes % 7.9, Eosinophils % 3.8, Basophils % 0.1, Absolute Granulocytes 5.2, Absolute Lymphocytes 1.2, Absolute Monocytes 0.6, Absolute Eosinophils 0.3, Absolute Basophils 0 Assessment/Plan Assessment: Assessment: The patient is a 77-year-old female with past medical history of hypertension, hyperlipidemia, 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 She is presenting to [facility] ED on 11/26 with complaint of right hip pain secondary to fall. -VS WNL -Pertinent labs hb 10.2, wbc 8.4, MCV 69.5 MCH 21, sodium 143 PLAN #Mechanical fall resulting in right femoral neck fracture Orthopedics on board. She underwent moderate risk surgery of right hip hemiarthroplasty. -REGULAR DIET NOW -for surgery: MET score 4, RCRI patient score only 1 ponint for CVA history; Class II Risk with 0.9 % Risk of Major Cardiac Event. -Pain pathway with tylenol, percocet and dilaudid, lidocaine patch -As per surgery we have switched AC with heparin to abixiban 2.5mg bid which she will continue -Orthopedics has signed off for now -PT evaluation post surgery said patient needs SNF. -CALL [phone] RISHABH THE SON for any updates - we have attempted to contact to no avail BUT DID TALK TO DAUGHTER YISSEL TODAY WHO TOLD US THAT PATIENT WAS FINE, NOT ALTERED BEFORE SURGERY. #post op fever and confusion: post op pneumonia/aspiration/PE/medication reaction/electrolyte imbalance/atelectasis/uti/surgical site infection? ANOTHER FEVER SPIKE TO 100.4 LAST NIGHT. -FLUIDS HAVE BEEN DC'D -avoid opiates -patient received abx during surgery keflex one dose -HOLD UNASYN PER DR. RECIO - PER SUGGESTION OF DR. RECIO WE HAVE CONSULTED DR. STEINER NEUROLOGIST FOR SUSPICION OF NPH DUE TO VENTRICULOMEGALY, ATAXIA (PATIENT HAD FALLEN), AND INCONTINENCE. OF NOTE WE STOPPED PTS OXYBUTININ DUE TO POTENTIAL FOR CONFUSION AND THIS IS WHEN PATIENT BEGAN TO SHOW SIGNS OF INCONTINENCE AGAIN IE MOST LIKELY NOT DUE TO NPH. - PER DR. STEINER NO CONCERN FOR NPH. He thinks this is encephalopathy possibly due to low-grade infection, psychotropic medications, recent general anesthesia. There may be a degree of underlying dementia but the family states there was not. From my own interview with the patient, no evidence of dementia prior to surgery. -CHECK TSH, B12, REPEAT UA PER DR. STEINER -EEG SHOWED fairly normal background with generalized slowing occurring in a waxing and waning manner consistent with toxic or metabolic encephalopathy -continue incentive spirometry -cxr showed no evidence of pneumonia; no acute pulmonary findings -dc'D bedoya to decrease chances of infection -PT OFF RESTRAINTS -CT HEAD WITHOUT CONTRAST was negative for acute process -WE DID PLACE CONSULT WITH PSYCH WHO REQUESTED WE COMPLETE MEDICAL WORKUP BEFORE HE SEES HER. WE STILL AWAIT PSYCH RECOMMENDATION THIS MAY BE A PSEUDODEMENTIA DUE TO DEPRESSION PATIENT HAS BIPOLAR DISORDER. -HOLD DOING CTA FOR PE OR FAT EMBOLISM UNTIL ID SEES THE PATIENT. PATIENT IS NOT HYPOXEMIC BUT PER LITERATURE ONLY SIGN IN ELDERLY ESPECIALLY MAY BE AMS. -CAN DISCUSS DC WHEN PATIENT AFEBRILE 24 HOURS, SHE WOULD GO TO STR #ANEMIA -HB LOW OF 6.6 POST SURGERY DAY 2 -Transfused one unit -KEEP HB ABOVE 8. -guaic NEGATIVE -GAVE LOW DOSE IBUPROFEN TODAY TYLENOL WAS NOT WORKING AND WE DO NOT WANT TO GIVE OPIATES TO THIS ALTERED PATIENT. MONITOR HB AND CONTINUE TO GUAIC STOOLS. #Chronic medical conditions GERD and anxiety along with bipolar depression, insomnia, neuropathy, Continue TUMS, Bentyl, sertraline, Lamictal, Seroquel, melatonin, Lyrica, artificial tears #constipation bowel regimen DVT prophylaxis with heparin subcutaneous Problem List: 1. Confusion, postoperative 2. Femoral neck fracture Pain Ratin Pain Location: RIGHT HIP AND BACK Pain Goal: Pain 4 or less Pain Plan: PATHWAY Tomorrow's Labs & Rationales: CBC LULU Rachel Escamilla 12/02/17 1147: Attending MD Review Statement Attending Statement Attending MD Statement: examined this patient, discuss w/resident/PA/WET ROASTER, agreed w/resident/PA/WET ROASTER, discussed with family, reviewed EMR data (avail), discussed with nursing, discussed with case mgmt, reviewed images, amended to note Attending Assessment/Plan: Patient admitted here for righ thip fracture s/p repair with multiple medical problems in past now psot op course complicated with post op delirium and fever of unclear source. Patient seen/examined bedside. She is aaox 2 oriented. Her opiods has been discontinued alongwith sedating meds. Patient has h/o bipolar disorder and is on multiple pysch meds. She is on lamotrigine for ?seizure disorder. ID eval noted. Consider Neuro eval. Fever of unclear source. EEG with diffuse encephaloapthy. Patient received blood transfusion PRBC for acute blood loss anemia likely post operative. She is off restraints now. Patient did spike of Max temp 100.4. Discontinued antibiotics. Cultures remain negative. F/U ID and consult Neuro for abnormal EEG. Monitor mental status and fever, f/u pysch evaluation for delirium in semaj-operative period. Fall precautions. dvt prophyalxis as per orthopedics. plna to discharge to [facility] once medically stable and afebrile for 24-48 hrs. CONSULTANTS Infectious disease. Neurology.
[2017-12-02 09:44] LABS: ABSOLUTE BASOPHIL COUNT 0 /CUMM (0.0-0.2); ABSOLUTE EOSINOPHIL COUNT 0.3 /CUMM (0.0-0.7); ABSOLUTE GRANULOCYTE CT 5.2 /CUMM (1.4-6.5); ABSOLUTE LYMPH COUNT 1.2 /CUMM (1.2-3.4); ABSOLUTE MONOCYTE COUNT 0.6 /CUMM (0.10-0.60); BASOPHIL % 0.1 % (0.0-2.0); EOSINOPHIL % 3.8 % (0-5); GRANULOCYTE % 71.7 % (42.2-75.2); HEMATOCRIT 26.8 % (37-47); MEAN CORPUSCULAR HGB CONC 31.2 G/DL (33.0-37.0); MEAN CORPUSCULAR VOLUME 70.5 FL (81.0-99.0); MEAN PLATELET VOLUME 8.7 FL (7.4-10.4); PLATELET COUNT 265 /CUMM (130-400); RBC DISTRIBUTION WIDTH 17.2 % (11.5-14.5); WHITE BLOOD CELL COUNT 7.3 /CUMM (4.8-10.8)
--- NOTE | 2017-12-02 12:24 | PN- Infect Dx ---
Subjective Subjective: MAXIMUM TEMPERATURE 100.4. She offers no specific complaints. Objective Last 24 Hrs of Vital Signs/I&O Vital Signs Date Time Temp Pulse Resp B/P B/P Pulse O2 O2 Flow FiO2 Mean Ox Delivery Rate 12/02 525 99.7 79 22 142/70 95 Room Air 12/02 0407 99.7 12/02 0400 99.7 12/02 0250 100.4 12/02 0250 100.4 12/02 0000 Room Air 12/01 2229 99.3 73 20 110/70 98 Room Air 12/01 1355 98.3 75 18 102/60 98 Intake & Output 12/02 1600 12/02 0800 12/02 0000 Intake Total 705 730 Output Total Balance 705 730 Intake, IV 225 250 Intake, Oral 480 480 Number 1 Bowel Movements Physical Exam Other Physical Findings: She appears comfortable, in no acute distress, but remains confused and disoriented Lungs are clear Heart regular rhythm with no murmur Abdomen is soft, nontender with positive bowel sounds Extremities right hip incision clean, with no erythema or drainage Results Last 24 Hours of Lab Results: Laboratory Tests 12/02 0900 Chemistry Sodium (137 - 145 mmol/L) 147 H Potassium (3.5 - 5.1 mmol/L) 3.9 Chloride (98 - 107 mmol/L) 109 H Carbon Dioxide (22 - 30 mmol/L) 25 Anion Gap (5 - 16) 12 BUN (7 - 17 mg/dL) 19 H Creatinine (0.5 - 1.0 mg/dL) 0.7 Estimated GFR (>60 ml/min) > 60 BUN/Creatinine Ratio (7 - 25 %) 27.1 H Hematology CBC w Diff NO MAN DIFF REQ WBC (4.8 - 10.8 /CUMM) 7.3 RBC (4.20 - 5.40 /CUMM) 3.80 L Hgb (12.0 - 16.0 G/DL) 8.4 L Hct (37 - 47 %) 26.8 L MCV (81.0 - 99.0 FL) 70.5 L MCH (27.0 - 31.0 PG) 22.0 L MCHC (33.0 - 37.0 G/DL) 31.2 L RDW (11.5 - 14.5 %) 17.2 H Plt Count (130 - 400 /CUMM) 265 MPV (7.4 - 10.4 FL) 8.7 Gran % (42.2 - 75.2 %) 71.7 Lymphocytes % (20.5 - 51.1 %) 16.5 L Monocytes % (1.7 - 9.3 %) 7.9 Eosinophils % (0 - 5 %) 3.8 Basophils % (0.0 - 2.0 %) 0.1 Absolute Granulocytes (1.4 - 6.5 /CUMM) 5.2 Absolute Lymphocytes (1.2 - 3.4 /CUMM) 1.2 Absolute Monocytes (0.10 - 0.60 /CUMM) 0.6 Absolute Eosinophils (0.0 - 0.7 /CUMM) 0.3 Absolute Basophils (0.0 - 0.2 /CUMM) 0 Last 24 Hours of Ryan Results: Blood cultures November 28 negative Assessment/Plan Impression: Stable, with just low-grade fevers and with her white blood cell count remaining normal, off antibiotics now 5 days status post right hip hemiarthroplasty, with no obvious focus of infection and with recent blood cultures and chest x-ray negative. Suspect that her fevers may be related to a perioperative hematoma, with her H&H now stable after 1 unit of blood. Given her confusion, urinary incontinence and frequent falls, suggesting possible ataxia, normal pressure hydrocephalus is a possibility, particularly given her CT findings. Suggestion: 1. Await Neurology evaluation 2. Continue to follow off antibiotics
[2017-12-02 14:20] VITALS: BP 128/80
--- NOTE | 2017-12-02 14:38 | Cons- Neurology ---
General Information and HPI Consulting Request Date of Consult: 12/02/17 Requested By: Rachel Escamilla MD Reason for Consult: Altered mental status Source of Information: patient, old records, Resident MDs Exam Limitations: clinical condition History of Present Illness: 77-year-old woman, assisted living resident, with a history of hyperlipidemia, status post CVA with right lower extremity weakness, obstructive sleep apnea, osteoporosis, GERD, anxiety and bipolar disorder, with frequent falls, admitted on November 26 after a fall, resulting in right hip fracture treated with a hemiarthroplasty on 11/27. She has had persistent disorientation and confusion, as well as continued fevers. The patient herself denies headache, neck pain, sinus congestion, lateralized weakness, numbness or paresthesias. Medications include Seroquel 25 MG at bedtime, Zoloft 150 mg daily, lamotrigine 100 mg daily as well as aspirin and when necessary Benadryl. Allergies/Medications Allergies: Coded Allergies: STATINS (UNKNOWN 06/05/14) cetirizine (From [facility]) (UNKNOWN 07/09/16) nut - unspecified (ITCHING 07/09/16) Home Med List: Acetaminophen (Tylenol) 325 MG TABLET 2 TAB PO Q6H PRN PAIN (Reported) Alprazolam (Xanax) 0.5 MG TABLET 1 TAB PO Q6H PRN ANXIETY (Reported) Aspirin (Ecotrin*) 81 MG TABLET.DR 1 TAB PO DAILY HEART/BLOOD (Reported) Calcium Carbonate (TUMS) 200 MG CALCIUM (500 MG) TAB.CHEW 1 TAB PO TID GI ( Reported) Cholecalciferol (Vitamin D3) 1,000 UNIT TABLET 1 TAB PO DAILY SUPPLEMENT ( Reported) Cyclosporine (Restasis) 0.05 % DROPERETTE 1 GTT OU BID BOTH EYES (Reported) Dicyclomine Hydrochloride (Bentyl) 10 MG CAPSULE 1 CAP PO TID GI (Reported) Difluprednate (Durezol) 0.05 % DROPS 1 GTT OU 4XDAILY BOTH EYES (Reported) diphenhydrAMINE HCl (Benadryl) 25 MG CAPSULE 1 CAP PO Q6H PRN ITCHINESS ( Reported) Docusate Sodium (Colace) 100 MG CAPSULE 1 CAP PO TID PRN STOOL SOFTENER ( Reported) Lamotrigine (Lamictal) 100 MG TABLET 1 TAB PO DAILY MENTAL HEALTH (Reported) Loperamide HCl (Loperamide) 2 MG CAPSULE 2 CAP PO Q4H PRN LOOSE STOOLS ( Reported) Loratadine (Claritin) 10 MG TABLET 1 TAB PO DAILY ALLERGIES (Reported) Melatonin 3 MG TABLET 1 TAB PO QHS SLEEP (Reported) Methylcellulose (With Sugar) (Citrucel Powder) 850 GM POWDER 2 GM PO TID PRN GI (Reported) Mirabegron (Myrbetriq) 50 MG TAB.ER.24H 1 TAB PO QHS BLADDER (Reported) Polyethylene Glycol 3350 (Miralax) 17 GRAM POWD.PACK 1 PAC PO DAILY PRN GI ( Reported) dissolve in water Pregabalin (Lyrica) 25 MG CAPSULE 1 CAP PO AD NERVE PAIN (Reported) Quetiapine Fumarate 25 MG TABLET 1 TAB PO QHS MENTAL HEALTH (Reported) Sertraline HCl 100 MG TABLET 1.5 TAB PO DAILY MENTAL HEALTH (Reported) Current Medications: Current Medications Sig/Danyell Start time Last Medication Dose Route Stop Time Status Admin Acetaminophen 650 MG .STK-MED ONE 12/02 0250 DC PO 12/02 0251 Acetaminophen 1,000 MG Q6P PRN 11/28 1045 12/01 N/A 1 UNIT IV 1346 Acetaminophen 650 MG Q6P PRN 11/26 2145 12/02 PO 0250 Ampicillin Sodium/ 3,000 MG Q6H 12/01 0400 HI 12/01 Sulbactam Sodium IV 1112 Sodium Chloride 100 ML Apixaban 2.5 MG BID 11/28 1000 12/02 PO 09 Aspirin Buffered 81 MG DAILY 12/02 1040 12/02 PO 1216 Calcium Carbonate 500 MG TID 11/27 1000 12/02 PO 09 Cholecalciferol 1,000 IU DAILY 11/27 1000 12/02 PO 09 Diphenhydramine HCl 25 MG Q6H PRN 11/26 2315 PO Docusate Sodium 100 MG DAILY 11/30 1000 12/02 PO 0930 Docusate Sodium 100 MG TID PRN 11/26 2315 AC 11/30 PO 214 Lamotrigine 100 MG DAILY 11/27 1000 AC 12/02 PO 09 Mirabegron 50 MG AT BEDTIME 12/02 2200 PO Polyethylene Glycol 17 GM DAILY 11/28 1107 12/02 PO 0926 Pregabalin 25 MG DAILY 12/03 1000 AC PO Pregabalin 25 MG .[AD] 12/02 1045 DC PO Quetiapine Fumarate 25 MG AT BEDTIME 11/27 2199 AC 12/01 PO 2050 Senna 187 MG AT BEDTIME 11/28 2199 AC 12/01 PO 2049 Sertraline HCl 150 MG DAILY 11/27 1000 AC 12/02 PO 0926 Sodium Chloride 1,000 ML Q13H 12/01 1000 DC 12/01 IV 2307 Review of Systems Review of Systems: ROS: A complete medical systems review was obtained. The patient basically denied any symptoms questioned except for leg pain. Past History Travel History Traveled to [place] past 21 day No Medical History Blood Transfusion Hx: No Neurological: CVA (left with right hemiparesis) Cardiovascular: hypertension, hyperlipidemia Respiratory: obstructive sleep apnea, INSOMNIA Gastrointestinal: GERD Musculoskeletal: osteoarthritis Psychiatric: anxiety, bipolar disease, depression Surgical History Surgical History: cholecystectomy, tonsillectomy Psychosocial History Where Do You Live? Assisted Living Who Do You Live With? self Services at Home: Home Health Aide Primary Language: Greenlandic Smoking Status: Never Smoked ETOH Use: denies use Illicit Drug Use: denies illicit drug use Functional Ability ADLs Independent: dressing, eating, toileting, bathing. Ambulation: walker IADLs Needs Assist: shopping, housework, finances, food prep, telephone, transportation, medication admin. Exam & Diagnostic Data Vital Signs and I&O Vital Signs Date Time Temp Pulse Resp B/P B/P Pulse O2 O2 Flow FiO2 Mean Ox Delivery Rate 12/02 1420 97.9 77 18 128/80 99 12/02 0526 99.7 79 22 142/70 95 Room Air 12/02 0407 99.7 12/02 0400 99.7 12/02 0250 100.4 12/02 0250 100.4 12/02 0000 Room Air 12/01 2229 99.3 73 20 110/70 98 Room Air Intake & Output 12/02 1600 12/02 0800 12/02 0000 Intake Total 600 705 730 Output Total Balance 600 705 730 Intake, IV 225 250 Intake, Oral 600 480 480 Number 1 Bowel Movements Physical Exam: On exam the patient appeared generally well and in no distress lying comfortably in bed with eyes open. Neck supple, no cranial tenderness, no cervical adenopathy Mental status: Awake, somewhat inattentive, oriented to "hospital" but not which one, stated June 2016, no she is in the hospital due to a fall and fracture, immediate recall intact although she was reluctant to answer questions. Short term memory 0/3. When asked presidents she could name Mayito but then only Lukas. No language errors Funduscopic not visualized, noncooperative Visual [place] full , Eye movements full without nystagmus, pupils midsize equal round and reactive to light. Facial movement normal bilaterally Facial sensation normal bilaterally Uvula elevates midline Tongue protrusion is midline Shoulder shrug symmetric Motor power and tone normal in both arms and left leg, moves right foot normally Sensation intact to primary modes Tendon reflexes normal and symmetric without pathologic signs Coordination no gross ataxia Gait [testing deferred Last 48 Hours of Lab Results: Laboratory Tests 12/02 12/01 0900 0714 Chemistry Sodium (137 - 145 mmol/L) 147 H 143 Potassium (3.5 - 5.1 mmol/L) 3.9 3.7 Chloride (98 - 107 mmol/L) 109 H 105 Carbon Dioxide (22 - 30 mmol/L) 25 25 Anion Gap (5 - 16) 12 12 BUN (7 - 17 mg/dL) 19 H 17 Creatinine (0.5 - 1.0 mg/dL) 0.7 0.8 Estimated GFR (>60 ml/min) > 60 > 60 BUN/Creatinine Ratio (7 - 25 %) 27.1 H 21.3 Hematology CBC w Diff NO MAN DIFF REQ NO MAN DIFF REQ WBC (4.8 - 10.8 /CUMM) 7.3 8.5 RBC (4.20 - 5.40 /CUMM) 3.80 L 3.59 L Hgb (12.0 - 16.0 G/DL) 8.4 L 8.0 L Hct (37 - 47 %) 26.8 L 25.3 L MCV (81.0 - 99.0 FL) 70.5 L 70.6 L MCH (27.0 - 31.0 PG) 22.0 L 22.4 L MCHC (33.0 - 37.0 G/DL) 31.2 L 31.7 L RDW (11.5 - 14.5 %) 17.2 H 17.4 H Plt Count (130 - 400 /CUMM) 265 215 MPV (7.4 - 10.4 FL) 8.7 8.6 Gran % (42.2 - 75.2 %) 71.7 54.6 Lymphocytes % (20.5 - 51.1 %) 16.5 L 36.0 Monocytes % (1.7 - 9.3 %) 7.9 6.4 Eosinophils % (0 - 5 %) 3.8 3.0 Basophils % (0.0 - 2.0 %) 0.1 0 Absolute Granulocytes (1.4 - 6.5 /CUMM) 5.2 4.6 Absolute Lymphocytes (1.2 - 3.4 /CUMM) 1.2 3.0 Absolute Monocytes (0.10 - 0.60 /CUMM) 0.6 0.5 Absolute Eosinophils (0.0 - 0.7 /CUMM) 0.3 0.3 Absolute Basophils (0.0 - 0.2 /CUMM) 0 0 Imaging/Other Studies: Head CT 11/30/16: There are no pathologic extra-axial fluid collections. The lateral, third, fourth ventricles are prominent, though stable, age-appropriate and concordant with the appearance of the sulci. There is no evidence for acute intraparenchymal hemorrhage or infarct. There is neither mass nor mass effect. There is no shift of midline structures. The paranasal sinuses and mastoid air cells are clear. There are no osseous lesions. IMPRESSION: No evidence for acute intracranial injury. Stable appearance of the brain. Images reviewed personally, hydrocephalus ex vacuo, generalized atrophy. EEG: Fairly normal background with generalized slowing occurring in a waxing and waning manner consistent with toxic or metabolic encephalopathy Assessment/Plan Assessment: Encephalopathy possibly due to low-grade infection, psychotropic medications, recent general anesthesia. There may be a degree of underlying dementia, patient's mental status prior to admission is not known with any accuracy. No indication of any acute neurologic process such as stroke, no concern for hydrocephalus. Recommendations: Continue current management plan If not already done this admission check serum B12, TSH with reflex T4, repeat UA Consult Acknowledgment - Thank you for your consult request.
--- NOTE | 2017-12-02 16:48 | RADIOLOGY REPORT ---
EXAMINATION: XR HIP, RIGHT CLINICAL INFORMATION: Postoperative fever with drop in H\T\H. COMPARISON: Right hip radiographs 04/27/2018 TECHNIQUE: Single view of the right hip. FINDINGS: Patient is status post right hip prosthesis. Prosthesis is unremarkable in appearance. Skin bret are again identified a generator is visualized projecting over the right lower abdominal quadrant. IMPRESSION: Unremarkable postoperative images of the right hip. Radiographs have port sensitivity to evaluate for hematoma. If clinically indicated, further evaluation may be obtained with ultrasound or CT.
--- NOTE | 2017-12-02 19:22 | Cons- Psychiatry ---
Psychiatric Consult Date of Consult: 12/02/17 Reason for Consult: History of seizures, lethargy, post operative delirium. History of Present Illness: 77 F BIBA from assisted living on 11/26/17 with CC of right hip pain. She had fallen and suffered a fractured right hip, and is S/P right hip hemiarthroplasty. PMH includes CVA with ersidual right side weakness, TEJINDER but non-compliant with CPAP, GERD, oasteoarthritis, anxiety and bipolar depression. Her psychotropic medications are ordered by a provider at [facility], AEB their phone number on the med claim record. The patient does not recall her provider. Allergies: Coded Allergies: STATINS (UNKNOWN 06/05/14) cetirizine (From [facility]) (UNKNOWN 07/09/16) nut - unspecified (ITCHING 07/09/16) Current Medications: Current Medications Sig/Danyell Start time Last Medication Dose Route Stop Time Status Admin Acetaminophen 650 MG .STK-MED ONE 12/02 0250 DC PO 12/02 0251 Acetaminophen 1,000 MG Q6P PRN 11/28 1045 AC 12/01 N/A 1 UNIT IV 1346 Acetaminophen 650 MG Q6P PRN 11/26 2145 AC 12/02 PO 0250 Apixaban 2.5 MG BID 11/28 1000 AC 12/02 PO 09 Aspirin Buffered 81 MG DAILY 12/02 1040 AC 12/02 PO 1216 Calcium Carbonate 500 MG TID 11/27 1000 AC 12/02 PO 1654 Cholecalciferol 1,000 IU DAILY 11/27 1000 AC 12/02 PO 09 Diphenhydramine HCl 25 MG Q6H PRN 11/26 2315 AC PO Docusate Sodium 100 MG .STK-MED ONE 12/02 0930 DC PO 12/02 0931 Docusate Sodium 100 MG DAILY 11/30 1000 AC 12/02 PO 0930 Docusate Sodium 100 MG TID PRN 11/26 2315 AC 11/30 PO 214 Lamotrigine 100 MG DAILY 11/27 1000 AC 12/02 PO 09 Mirabegron 50 MG AT BEDTIME 12/02 2200 AC PO Polyethylene Glycol 17 GM DAILY 11/28 1107 AC 12/02 PO 0926 Pregabalin 25 MG DAILY 12/03 1000 AC PO Pregabalin 25 MG .[AD] 12/02 1045 DC PO Quetiapine Fumarate 25 MG AT BEDTIME 11/27 2199 AC 12/01 PO 2050 Senna 187 MG AT BEDTIME 11/28 2199 AC 12/01 PO 2048 Sertraline HCl 150 MG DAILY 11/27 1000 AC 12/02 PO 09 Sodium Chloride 1,000 ML Q13H 12/01 1000 DC 12/01 IV 2307 Past History Past Medical History Neurological: CVA (left with right hemiparesis) Cardiovascular: hypertension, hyperlipidemia Respiratory: obstructive sleep apnea, INSOMNIA Gastrointestinal: GERD Musculoskeletal: osteoarthritis Psychiatric: anxiety, bipolar disease, depression Past Surgical History Surgical History: cholecystectomy, tonsillectomy Psychosocial History Strengths/Capabilities: Copperative and motivated for treatment. Physical Limitations (Interventions): Ambulation difficulty at baseline, now complicated by a fractures and repaired right hip. Psychiatric Treatment History Psych Treatment Psychiatric Treatment Yes Inpatient Treatment Yes Outpatient Treatment Yes Location of Treatment Unknown inpatient. Outpatient at her home. Reason for Treatment Bipolar depression Dates of Treatment Ongoing Response to Treatment Improved, by report Diagnosis: Bipolar disorder, unspecified, depressed type. Anxiety, unspecified Risk Factors: age (under 24/over 65), chronic/serious med cond., SA/MH hospitalized Substance Use/Abuse History Drug Use/Abuse Substances Used/Abused No (Denies) Assessment/Plan Mental Status Orientation: Confused, Oriented to name, only Affect: Flat (Distracted) Speech: Increased Latency, Poverty Neuro-vegetative: WNL Mental Status Exam: Denies AH or VH, presents no frankl delusions. Denies SI or HI. Denies hopelessness, helplessness or worthlessness. Denies racing thoughts. She answers most questions directly, some with delay, and chooses to not answer questions about her past treatment for psychiatric illness. She has moderate to good insight and judgement. Lab Results: Laboratory Tests 12/02 0900 Chemistry Sodium (137 - 145 mmol/L) 147 H Potassium (3.5 - 5.1 mmol/L) 3.9 Chloride (98 - 107 mmol/L) 109 H Carbon Dioxide (22 - 30 mmol/L) 25 Anion Gap (5 - 16) 12 BUN (7 - 17 mg/dL) 19 H Creatinine (0.5 - 1.0 mg/dL) 0.7 Estimated GFR (>60 ml/min) > 60 BUN/Creatinine Ratio (7 - 25 %) 27.1 H Vitamin B12 (239 - 931 pg/mL) 293 TSH &T3 &Free T4 Intrp (0.270 - 4.20 uIU/mL) 1.400 Hematology CBC w Diff NO MAN DIFF REQ WBC (4.8 - 10.8 /CUMM) 7.3 RBC (4.20 - 5.40 /CUMM) 3.80 L Hgb (12.0 - 16.0 G/DL) 8.4 L Hct (37 - 47 %) 26.8 L MCV (81.0 - 99.0 FL) 70.5 L MCH (27.0 - 31.0 PG) 22.0 L MCHC (33.0 - 37.0 G/DL) 31.2 L RDW (11.5 - 14.5 %) 17.2 H Plt Count (130 - 400 /CUMM) 265 MPV (7.4 - 10.4 FL) 8.7 Gran % (42.2 - 75.2 %) 71.7 Lymphocytes % (20.5 - 51.1 %) 16.5 L Monocytes % (1.7 - 9.3 %) 7.9 Eosinophils % (0 - 5 %) 3.8 Basophils % (0.0 - 2.0 %) 0.1 Absolute Granulocytes (1.4 - 6.5 /CUMM) 5.2 Absolute Lymphocytes (1.2 - 3.4 /CUMM) 1.2 Absolute Monocytes (0.10 - 0.60 /CUMM) 0.6 Absolute Eosinophils (0.0 - 0.7 /CUMM) 0.3 Absolute Basophils (0.0 - 0.2 /CUMM) 0 Diffential Diagnosis: Bipolar disorder, unspecified, depressed type. Anxiety, unspecified Impression: The patient is confused, which may be possibly due to lingering effects of anesthesia, a metabolic, organic or infectious process. Nursing and the med team report that her cognition is improving, but we do not know her baseline. CT Head on 11/30/17 showed no evidence of acute intracranial injury. Neurology has ordered an EEG , and has noted that the results are consistent with diffuse encephalopathy. Infectious disease has noted low grade fevers without locus of infection. They also remark that due to the patient's confusion, urinary incontinence and frequent falls, normal pressure hydrocephalus should be considered. The patient' s gait was not observed by this engineering technical writer, although she uses a walker at her home, and was using it when she fell. She is treated for bipolar depression, and reports that her medications are helping her. She does not recall who her PATTERN VAULT CLERK is. She had a visit from her supportive sister today, and states that her son in [place], [place] handles her affairs. She had bilateral cataract surgery approximately 6 months ago, and notes that she is using her spare glasses, having broken her main pair when she fell. She will need new glasses. Provisional Treatment Plan: 1. Continue psychotropic medications, as ordered: Lamotrigine 100 mg PO daily, quetiapine 25 mg PO HS, sertraline 150 mg PO daily. 2. Request a psychiatric followup from her provider, [facility], at the assisted living facility. The phone number is [phone]. 3. Consider ordering the balance of the reversible dementia screen, including RPR/VDRL, Lyme titer. The patient is clear for discharge from psychiatry viewpoint. Thank you for this consult.
[2017-12-02 22:21] VITALS: BP 124/80
[2017-12-03 06:28] VITALS: BP 158/96
[2017-12-03 09:35] LABS: ABSOLUTE BASOPHIL COUNT 0 /CUMM (0.0-0.2); ABSOLUTE EOSINOPHIL COUNT 0.3 /CUMM (0.0-0.7); ABSOLUTE GRANULOCYTE CT 6.5 /CUMM (1.4-6.5); ABSOLUTE LYMPH COUNT 1.6 /CUMM (1.2-3.4); ABSOLUTE MONOCYTE COUNT 0.6 /CUMM (0.10-0.60); BASOPHIL % 0.3 % (0.0-2.0); EOSINOPHIL % 3.2 % (0-5); HEMATOCRIT 27.8 % (37-47); MEAN CORPUSCULAR HGB 21.6 PG (27.0-31.0); MEAN CORPUSCULAR HGB CONC 30.4 G/DL (33.0-37.0); MEAN CORPUSCULAR VOLUME 71.1 FL (81.0-99.0); MEAN PLATELET VOLUME 8.9 FL (7.4-10.4); PLATELET COUNT 327 /CUMM (130-400); RBC DISTRIBUTION WIDTH 17.2 % (11.5-14.5); RED BLOOD CELL CT 3.91 /CUMM (4.20-5.40)
[2017-12-03] MEDS ORDERED: LYRICA25 M1 PO (13:04)
--- NOTE | 2017-12-03 13:46 | PN- Att Addend ---
Attending Addendum Attending Brief Note Patient seen and examined, slightly confused. Has been evaluated by neurology and psychiatric. EKG shows diffuse encephalopathy. Vital Signs Date Time Temp Pulse Resp B/P B/P Pulse O2 O2 Flow FiO2 Mean Ox Delivery Rate 12/03 1132 98.9 12/03 0628 98.4 75 20 158/96 98 12/02 2221 98.3 76 20 124/80 94 Room Air 12/02 1430 Room Air 12/02 1420 97.9 77 18 128/80 99 on exam; awake, nad. cv; s1, s2, rrr resp; clear abd; soft, nt, bs+ ext; no edema. Laboratory Tests 12/03 0805 Chemistry Sodium (137 - 145 mmol/L) 143 Potassium (3.5 - 5.1 mmol/L) 4.2 Chloride (98 - 107 mmol/L) 106 Carbon Dioxide (22 - 30 mmol/L) 24 Anion Gap (5 - 16) 12 BUN (7 - 17 mg/dL) 19 H Creatinine (0.5 - 1.0 mg/dL) 0.8 Estimated GFR (>60 ml/min) > 60 BUN/Creatinine Ratio (7 - 25 %) 23.8 TSH &T3 &Free T4 Intrp (0.270 - 4.20 uIU/mL) 2.090 Hematology CBC w Diff NO MAN DIFF REQ WBC (4.8 - 10.8 /CUMM) 9.0 RBC (4.20 - 5.40 /CUMM) 3.91 L Hgb (12.0 - 16.0 G/DL) 8.4 L Hct (37 - 47 %) 27.8 L MCV (81.0 - 99.0 FL) 71.1 L MCH (27.0 - 31.0 PG) 21.6 L MCHC (33.0 - 37.0 G/DL) 30.4 L RDW (11.5 - 14.5 %) 17.2 H Plt Count (130 - 400 /CUMM) 327 MPV (7.4 - 10.4 FL) 8.9 Gran % (42.2 - 75.2 %) 72.0 Lymphocytes % (20.5 - 51.1 %) 17.6 L Monocytes % (1.7 - 9.3 %) 6.9 Eosinophils % (0 - 5 %) 3.2 Basophils % (0.0 - 2.0 %) 0.3 Absolute Granulocytes (1.4 - 6.5 /CUMM) 6.5 Absolute Lymphocytes (1.2 - 3.4 /CUMM) 1.6 Absolute Monocytes (0.10 - 0.60 /CUMM) 0.6 Absolute Eosinophils (0.0 - 0.7 /CUMM) 0.3 Absolute Basophils (0.0 - 0.2 /CUMM) 0 Serology RPR Titer/FTA Pending Lyme Disease Antibody Pending A/P: Patient admitted here for righ thip fracture s/p repair with multiple medical problems in past now psot op course complicated with post op delirium and fever of unclear source. Patient has been watched off of antibiotics per infectious disease recommendations. EEG was consistent with effusions encephalopathy. Neurology consult appreciated. At this point we'll continue to avoid any sedatives and narcotics. Patient needs to be orientation. She is on Eliquis For DVT prophylaxis. Once her mental state clears then she should be able to go to rehabilitation.
[2017-12-03 14:42] VITALS: BP 104/68
[2017-12-03 22:54] VITALS: BP 133/57
[2017-12-04 07:38] VITALS: BP 118/68
--- NOTE | 2017-12-04 08:26 | PN- Housestaff ---
Dutch PAULSON,Janet 12/04/17 0826: Subjective Follow-up For: FALL POST OP CONFUSION AND FEVER Subjective: NO COMPLAINTS NO EVENTS Review of Systems Constitutional: Reports: no symptoms. Objective Last 24 Hrs of Vital Signs/I&O Vital Signs Date Time Temp Pulse Resp B/P B/P Pulse O2 O2 Flow FiO2 Mean Ox Delivery Rate 12/04 1139 98.9 75 18 118/68 12/04 0738 99.6 75 18 118/68 98 Room Air 12/03 2254 99.4 70 20 133/57 95 Room Air Intake & Output 12/04 1600 12/04 0800 12/04 0000 Intake Total 800 110 Output Total Balance 800 110 Intake, IV 10 Intake, Oral 800 100 Number 1 Bowel Movements Physical Exam General Appearance: Alert, Oriented X3, Cooperative, No Acute Distress Skin: No Rashes, No Breakdown, No Significant Lesion Cardiovascular: Regular Rate, Normal S1, Normal S2, No Murmurs Lungs: Clear to Auscultation, Normal Air Movement Abdomen: Normal Bowel Sounds, Soft, No Tenderness Current Medications: Current Medications Sig/Danyell Start time Last Medication Dose Route Stop Time Status Admin Acetaminophen 1,000 MG Q6P PRN 11/28 1045 DCD 12/01 N/A 1 UNIT IV 1346 Acetaminophen 650 MG Q6P PRN 11/26 2145 DCD 12/03 PO 0927 Apixaban 2.5 MG BID 11/28 1000 DCD 12/04 PO 0843 Aspirin Buffered 81 MG DAILY 12/02 1040 DCD 12/04 PO 0843 Calcium Carbonate 500 MG TID 11/27 1000 DCD 12/04 PO 0843 Cholecalciferol 1,000 IU DAILY 11/27 1000 DCD 12/04 PO 0843 Diphenhydramine HCl 25 MG Q6H PRN 11/26 2315 DCD PO Docusate Sodium 100 MG DAILY 11/30 1000 DCD 12/04 PO 0842 Docusate Sodium 100 MG TID PRN 11/26 2315 DCD 11/30 PO 2141 Lamotrigine 100 MG DAILY 11/27 1000 DCD 12/04 PO 0843 Mirabegron 50 MG AT BEDTIME 12/02 2200 DCD 12/03 PO 2114 Polyethylene Glycol 17 GM DAILY 11/28 1107 DCD 12/04 PO 0843 Pregabalin 25 MG TID 12/04 1000 DCD PO Pregabalin 25 MG DAILY 12/03 1000 DC 12/04 PO 0845 Quetiapine Fumarate 25 MG AT BEDTIME 11/27 2199 DCD 12/03 PO 2113 Senna 187 MG AT BEDTIME 11/28 2199 DCD 12/03 PO 2113 Sertraline HCl 150 MG DAILY 11/27 1000 DCD 12/04 PO 0843 Last 24 Hrs of Lab/Ryan Results Last 24 Hrs of Labs/Mics: Laboratory Tests 12/04/17 0730: Anion Gap 12, Estimated GFR > 60, BUN/Creatinine Ratio 30.0 H, CBC w Diff NO MAN DIFF REQ, RBC 3.91 L, MCV 71.2 L, MCH 22.0 L, MCHC 30.9 L, RDW 17.2 H, MPV 8.7, Gran % 69.6, Lymphocytes % 19.4 L, Monocytes % 7.5, Eosinophils % 3.2, Basophils % 0.3, Absolute Granulocytes 6.5, Absolute Lymphocytes 1.8, Absolute Monocytes 0.7 H, Absolute Eosinophils 0.3, Absolute Basophils 0 Assessment/Plan Assessment: Assessment: The patient is a 77-year-old female with past medical history of hypertension, hyperlipidemia, 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 She is presenting [facility] on [facility]26 with complaint of right hip pain secondary to fall. -VS WNL -Pertinent labs hb 10.2, wbc 8.4, MCV 69.5 MCH 21, sodium 143 PLAN #Mechanical fall resulting in right femoral neck fracture Orthopedics on board. She underwent moderate risk surgery of right hip hemiarthroplasty. -REGULAR DIET NOW -for surgery: MET score 4, RCRI patient score only 1 ponint for CVA history; Class II Risk with 0.9 % Risk of Major Cardiac Event. -Pain pathway with tylenol, percocet and dilaudid, lidocaine patch -As per surgery we have switched AC with heparin to abixiban 2.5mg bid which she will continue -Orthopedics has signed off for now -PT evaluation post surgery said patient needs SNF. -CALL [phone] RISHABH THE SON for any updates - we have attempted to contact to no avail BUT DID TALK TO DAUGHTER YISSEL TODAY WHO TOLD US THAT PATIENT WAS FINE, NOT ALTERED BEFORE SURGERY. #post op fever and confusion: post op pneumonia/aspiration/PE/medication reaction/electrolyte imbalance/atelectasis/uti/surgical site infection? NO FEVER SPIKE LAST NIGHT PATIENT STABLE TO BE DISCHARGED -FLUIDS HAVE BEEN DC'D -avoid opiates -patient received abx during surgery keflex one dose -HOLD UNASYN PER DR. RECIO - PER SUGGESTION OF DR. RECIO WE HAVE CONSULTED DR. STEINER NEUROLOGIST FOR SUSPICION OF NPH DUE TO VENTRICULOMEGALY, ATAXIA (PATIENT HAD FALLEN), AND INCONTINENCE. OF NOTE WE STOPPED PTS OXYBUTININ DUE TO POTENTIAL FOR CONFUSION AND THIS IS WHEN PATIENT BEGAN TO SHOW SIGNS OF INCONTINENCE AGAIN IE MOST LIKELY NOT DUE TO NPH. - PER DR. STEINER NO CONCERN FOR NPH. He thinks this is encephalopathy possibly due to low-grade infection, psychotropic medications, recent general anesthesia. There may be a degree of underlying dementia but the family states there was not. From my own interview with the patient, no evidence of dementia prior to surgery. -CHECK TSH, B12, REPEAT UA PER DR. STEINER WHICH WERE NORMAL -EEG SHOWED fairly normal background with generalized slowing occurring in a waxing and waning manner consistent with toxic or metabolic encephalopathy -continue incentive spirometry -cxr showed no evidence of pneumonia; no acute pulmonary findings -dc'D bedoya to decrease chances of infection -PT OFF RESTRAINTS -CT HEAD WITHOUT CONTRAST was negative for acute process -PSYCH SUGGESTS PSYCH FOLLOW UP WITH IN STR. CONTINUE ALL PSYCH MEDS FOR NOW. #ANEMIA -HB LOW OF 6.6 ON POST SURGERY DAY 2, NOW RESOLVED -Transfused one unit -KEEP HB ABOVE 8. -guaic NEGATIVE -GAVE LOW DOSE IBUPROFEN TODAY TYLENOL WAS NOT WORKING AND WE DO NOT WANT TO GIVE OPIATES TO THIS ALTERED PATIENT. MONITOR HB AND CONTINUE TO GUAIC STOOLS. #Chronic medical conditions GERD and anxiety along with bipolar depression, insomnia, neuropathy, Continue TUMS, Bentyl, sertraline, Lamictal, Seroquel, melatonin, Lyrica, artificial tears #constipation bowel regimen DVT prophylaxis with heparin subcutaneous Problem List: 1. Confusion, postoperative 2. Femoral neck fracture Pain Ratin Pain Location: RIGHT HIP Pain Goal: Pain 4 or less Pain Plan: PATHWAY [facility] Labs & Rationales: TO BE DC\D Consulting Request: Consulting Specialty: Infectious Disease Consulting Physician: Reason for Consult: Postoperative fevers Louis PAULSON,Michelle 12/04/17 1340: Attending MD Review Statement Attending Statement Attending MD Statement: examined this patient, discuss w/resident/PA/VOICE DATA COMMUNICATIONS ENGINEER, agreed w/resident/PA/VOICE DATA COMMUNICATIONS ENGINEER, reviewed EMR data (avail), discussed with nursing, discussed with case mgmt, reviewed images, amended to note Attending Assessment/Plan: Patient seen and examined, feels better. Mental status is improved. remains Afebrile. Watched off of abx. Has a bed available for Rehab. Medically stable for discharge.
[2017-12-04 08:44] LABS: ABSOLUTE BASOPHIL COUNT 0 /CUMM (0.0-0.2); ABSOLUTE EOSINOPHIL COUNT 0.3 /CUMM (0.0-0.7); ABSOLUTE GRANULOCYTE CT 6.5 /CUMM (1.4-6.5); ABSOLUTE LYMPH COUNT 1.8 /CUMM (1.2-3.4); ABSOLUTE MONOCYTE COUNT 0.7 /CUMM (0.10-0.60); BASOPHIL % 0.3 % (0.0-2.0); EOSINOPHIL % 3.2 % (0-5); GRANULOCYTE % 69.6 % (42.2-75.2); HEMATOCRIT 27.8 % (37-47); MEAN CORPUSCULAR HGB CONC 30.9 G/DL (33.0-37.0); MEAN CORPUSCULAR VOLUME 71.2 FL (81.0-99.0); MEAN PLATELET VOLUME 8.7 FL (7.4-10.4); PLATELET COUNT 339 /CUMM (130-400); RBC DISTRIBUTION WIDTH 17.2 % (11.5-14.5); RED BLOOD CELL CT 3.91 /CUMM (4.20-5.40); WHITE BLOOD CELL COUNT 9.3 /CUMM (4.8-10.8)
[2017-12-04 11:39] VITALS: BP 118/68
[2017-12-04] MEDS ORDERED: ELIQUIS2.5 M1 PO (11:47)
== END 2017-12-04 14:11 | DRG 469 ==
LOC: ERH 16:26 → 2NB 20:17 → ERHI 20:17 → ENRESERV 22:37 → 2NB 23:35 → ENTRNSPT 11-27 17:57 → EDTRNSPT 11-27 17:59 → EDTRNSPTSTS 11-27 17:59 → CMPTRNSPT 11-27 18:15 → 2NB 11-28 08:06 → ENPENDDIS 12-04 11:53 → 2NB 12-04 14:11
PROVIDERS: Emergency Medicine; Internal Medicine; Internal Medicine Adolescent Medicine; Student in an Organized Health Care Education/Training Program
PROC: 0SRR0JA Replacement of Right Hip Joint, Femoral Surface with Synthetic Substitute, Uncemented, Open Approach (ICD-10-PCS; principal; 2017-11-27)
PROC: 30233N1 Transfusion of Nonautologous Red Blood Cells into Peripheral Vein, Percutaneous Approach (ICD-10-PCS; 2017-11-29)
DX: S72.011A Unspecified intracapsular fracture of right femur, initial encounter for closed fracture (principal); G93.40 Encephalopathy, unspecified; I69.351 Hemiplegia and hemiparesis following cerebral infarction affecting right dominant side; F05 Delirium due to known physiological condition; D62 Acute posthemorrhagic anemia; R50.82 Postprocedural fever; I10 Essential (primary) hypertension; G47.33 Obstructive sleep apnea (adult) (pediatric); F31.9 Bipolar disorder, unspecified; F41.9 Anxiety disorder, unspecified; W01.0XXA Fall on same level from slipping, tripping and stumbling without subsequent striking against object, initial encounter; Y92.099 Unspecified place in other non-institutional residence as the place of occurrence of the external cause; D50.9 Iron deficiency anemia, unspecified; G47.00 Insomnia, unspecified; R32 Unspecified urinary incontinence; K59.00 Constipation, unspecified; K21.9 Gastro-esophageal reflux disease without esophagitis; E78.5 Hyperlipidemia, unspecified
CPT/HCPCS: 2NBP; 2NBSP; 86618; 36415; 71045; 73501; 73502-RT; 81001; 82436; 86920; 87040; 87086; 88305; 93005; 93010; 95816; 96372; 96374; 96375; 97110-GO; 97112-GO; 97116-GO; 97161-GP; 97530-GO; 97535-GO; 99232; J0131; J0690; J1100; J1644; J1885; J2405; J7042; P9016

== ENCOUNTER 2017-12-08 20:46 | Observation (INO) | payer OTHER, MEDICARE ==
[~2017-12-08] VITALS: Ht 160 cm; Wt 90.7 kg
[~2017-12-08 20:46] MED LIST changes: +ELIQUIS2.5 M1 PO; +LYRICA25 M1 PO; +QUETIAPINE FUMA25 M1 PO; +RESTASIS1 EACH OU
--- NOTE | 2017-12-08 20:50 | ED MVC/FALL/TRAUMA COMPLAINT ---
History of Present Illness General Chief Complaint: Fall Stated Complaint: FALL WITH HEAD STRIKE Source: patient, old records, EMS Exam Limitations: no limitations Vital Signs & Intake/Output Vital Signs & Intake/Output Vital Signs Date Time Temp Pulse Resp B/P B/P Pulse O2 O2 Flow FiO2 Mean Ox Delivery Rate 12/082 97.5 79 18 125/59 95 12/08 2201 Room Air 12/08 2058 97.8 78 14 128/60 95 Room Air Allergies Coded Allergies: STATINS (UNKNOWN 06/05/14) cetirizine (From ZYRTEC) (UNKNOWN 07/09/16) nut - unspecified (ITCHING 07/09/16) Reconcile Medications Acetaminophen (Tylenol) 325 MG TABLET 2 TAB PO Q6H PRN PAIN (Reported) Alprazolam (Xanax) 0.5 MG TABLET 1 TAB PO Q6H PRN ANXIETY (Reported) Apixaban (Eliquis) 2.5 MG TABLET 1 TAB PO BID ANTICOAGULANT Aspirin (Ecotrin*) 81 MG TABLET.DR 1 TAB PO DAILY HEART/BLOOD (Reported) Calcium Carbonate (TUMS) 200 MG CALCIUM (500 MG) TAB.CHEW 1 TAB PO TID GI ( Reported) Cholecalciferol (Vitamin D3) 1,000 UNIT TABLET 1 TAB PO DAILY SUPPLEMENT ( Reported) Cyclosporine (Restasis) 0.05 % DROPERETTE 1 GTT OU BID BOTH EYES (Reported) Dicyclomine Hydrochloride (Bentyl) 10 MG CAPSULE 1 CAP PO TID GI (Reported) Difluprednate (Durezol) 0.05 % DROPS 1 GTT OU 4XDAILY BOTH EYES (Reported) diphenhydrAMINE HCl (Benadryl) 25 MG CAPSULE 1 CAP PO Q6H PRN ITCHINESS ( Reported) Docusate Sodium (Colace) 100 MG CAPSULE 1 CAP PO BID STOOL SOFTENER (Reported ) Lamotrigine (Lamictal) 100 MG TABLET 1 TAB PO QHS NERVE PAIN (Reported) Loperamide HCl (Loperamide) 2 MG CAPSULE 2 CAP PO Q4H PRN LOOSE STOOLS ( Reported) Loratadine (Claritin) 10 MG TABLET 1 TAB PO DAILY ALLERGIES (Reported) Melatonin 3 MG TABLET 1 TAB PO QHS SLEEP (Reported) Methylcellulose (With Sugar) (Citrucel Powder) 850 GM POWDER 2 GM PO TID PRN GI (Reported) Mirabegron (Myrbetriq) 50 MG TAB.ER.24H 1 TAB PO QHS BLADDER (Reported) Oseltamivir Phosphate (Tamiflu) 75 MG CAPSULE 1 CAP PO DAILY FLU SYMPTOMS ( Reported) Polyethylene Glycol 3350 (Miralax) 17 GRAM POWD.PACK 1 PAC PO DAILY PRN GI ( Reported) dissolve in water Pregabalin (Lyrica) 25 MG CAPSULE 1 CAP PO TID NERVE PAIN (Reported) Quetiapine Fumarate 25 MG TABLET 1 TAB PO QHS MENTAL HEALTH (Reported) Sertraline HCl 100 MG TABLET 1.5 TAB PO DAILY MENTAL HEALTH (Reported) Triage Nurses Notes Reviewed? yes Onset: Abrupt Duration: hour(s): (1), constant Timing: recent history Severity: moderate Severity Numbers: 8 Injuries/Fall Location: pelvis, lower extremity Method of Injury: fall Loss of Consciousness: no loss of consciousness Modifying Factors: Worsens With: movement. 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 granado for which she was discharged from this hospital 4 days ago to [facility] rehabilitation presents after she had a mechanical fall while attempting to get on the toilet. The patient states she fell forward onto her right side and now presents the ER complaining of moderate aching severe right hip and right knee pain. Contrary to triage note the patient denies hitting her head she denies any neck or back pain she is alert and oriented 3. She denies any upper extremity injury or left leg injury. No chest pain abdominal pain. She denies any prodromal dizziness light as prior to the fall (Albin Ahuja) Past History Medical History Any Pertinent Medical History? see below for history Neurological: CVA ( right hemiparesis) Cardiovascular: hypertension, hyperlipidemia Respiratory: obstructive sleep apnea, INSOMNIA Gastrointestinal: GERD Musculoskeletal: osteoarthritis Psychiatric: anxiety, bipolar disease, depression History of MRSA: No History of VRE: No History of CDIFF: No Influenza Vaccine: 10/07/17 Surgical History Surgical History: cholecystectomy, tonsillectomy Psychosocial History Who do you live with Patient/Self Services at Home Home Health Aide What is your primary language Mauritanian Family History Hx Contributory? No (Albin Ahuja) Review of Systems Review of Systems Constitutional: Reports: see HPI. Comments Review of systems: See HPI, All other systems negative. Constitutional, no chills no fever, no malaise HEENT: no congestion, Cardiovascular: No chest pain , no palpitation Skin: no rashes, no change in skin Respiratory: No dyspnea no cough no sputum GI: No nausea no vomiting, no diarrhea : No dysuria Muscle skeletal: joint pain, no back pain, no neck pain, Neurologic: , no headache Heme/endocrine: No bruising Immunology: No lymphadenopathy (Bridget EDWARDS,Albin) Physical Exam Physical Exam General Appearance: well developed/nourished, alert, awake Comments: Well-developed well-nourished person in no acute distress HEENT: Normal EENT exam; PERRL, EOMI, scalp is atraumic, face is atraumatic. moist mucous membranes. Neck: Supple, nontender, normal range of motion without pain or tenderness Back: Nontender,Full range of motion Cardiovascular: Regular rate and rhythms no murmurs rubs or gallops, normal JVP Respiratory: Chest nontender.There were no bony deformities, no asymmetry. No respiratory distress. Patient speaking in full complete sentences. Breath sounds clear to auscultation bilaterally: NO W/R/R Abdomen: Soft, nontender upper Extremity: No edema, full range of motion of extremities, 5 out of 5 strength noted to bilateral upper extremities Hip/Pelvis:incision is c/d/i, Atraumatic/Stable. lrom of the r hip secondary to pain Knee: Atraumatic/stable. lrom of the r knee secondary to pain No joint swelling, no effusion Leg: no shortening or external rotation, no thigh tenderness, Atraumatic. the rest of the right leg is Nontender. No edema, 5 out of 5 strength in the lower extremity, normal dorsiflexion of great toe bilaterally, gross sensation is intact Ankle/Foot: Atraumatic/stable. Skin intact. FROM. No swelling, no effusion. No laxity on exam Pulses: Normal/equal DP/PT pulses bilaterally. Brisk cap refill Neuro: Alert oriented x3, motor sensory normal, cranial nerves II through XII grossly intact. There were no obvious focal neurologic abnormalities. Skin: No appreciable rash on exposed skin, skin is warm and dry. Psych: Mood and affect is normal, memory and judgment is normal. Core Measures ACS in differential dx? No CVA/TIA Diagnosis No Sepsis Present: No Sepsis Focused Exam Completed? No (Bridget EDWARDS,Albin) Progress Differential Diagnosis: ext injury (fx, sprain dislocaiton), pelvis injury, spinal cord injury Plan of Care: Orders Procedure Date/time Status Nothing by Mouth 12/09 B Active CBC WITHOUT DIFFERENTIAL 12/09 599 Active BASIC ELECTROLYTES PLUS BUN&CR 12/09 06 Active RAPID VIRAL INFLUENZA A 12/09 022 Active RAPID VIRAL INFLUENZA A 12/09 021 Active Pathway - chart 12/09 199 Active House Staff 12/09 199 Active Patient Data 12/09 199 Active Code Status 12/09 020 Active Patient Data 12/[address] in observation 12/09 0019 Active VTE Mechanical Prophylaxis 12/09 UNK Active Vital Signs 12/09 UNK Active Harrison, Insertion/Removal/Asses 12/08 2306 Active CULTURE,URINE 12/08 2306 Active TYPE & SCREEN (NOT X-MATCH) 12/08 230 Complete TROPONIN LEVEL 12/08 225 Complete PROTHROMBIN TIME 12/08 225 Complete COMPREHENSIVE METABOLIC PANEL 12/08 225 Complete CBC WITHOUT DIFFERENTIAL 12/08 225 Complete EKG 12/08 2258 Active XRY-AP PELVIS 12/08 2055 Active XRY-KNEE COMPLETE RIGHT 12/08 2055 Active XRY-HIP 2-3 VIEWS, RIGHT 12/08 2055 Active Current Medications Sig/Danyell Start time Last Medication Dose Stop Time Status Admin Senna/Docusate Sodium 1 TAB AT BEDTIME 12/09 2199 UNVr (Senokot S) Pregabalin 25 MG TID 12/09 1000 UNVr (Lyrica) Sertraline HCl 150 MG DAILY 12/09 1000 UNVr (Zoloft) Lamotrigine 100 MG .[QHS] 12/09 0230 UNVr (LaMICtal) Non-Formulary 0 SEE ADMIN CRITERIA 12/09 229 UNVr Medication (NON FORMULARY) Non-Formulary 0 SEE ADMIN CRITERIA 12/09 023 UNVr Medication (NON FORMULARY) Quetiapine Fumarate 25 MG .[QHS] 12/09 0230 UNVr (Seroquel) Alprazolam 0.5 MG Q6H PRN 12/09 021 UNVr (Xanax) 12/16 0214 Dextrose/Sodium 1,000 ML .[id number] 12/09 199 UNVr Chloride (D5W-1/2 Normal Saline 1000ML) Ibuprofen 600 MG Q6P PRN 12/09 199 UNVr (Motrin) Morphine Sulfate 2 MG Q4P PRN 12/09 199 UNVr (Morphine) Oxycodone/ 1 TAB Q6P PRN 12/09 199 UNVr Acetaminophen (Percocet) Oxycodone/ 1 TAB ONCE ONE 12/08 2099 CAN Acetaminophen 12/08 2100 (Percocet) Laboratory Tests 12/08/17 2315: Anion Gap 13, Estimated GFR 54 L, BUN/Creatinine Ratio 24.0, Glucose 127 H, Calcium 9.1, Total Bilirubin 0.2, AST 31, ALT 49, Alkaline Phosphatase 120, Troponin I < 0.01, Total Protein 5.7 L, Albumin 3.3 L, Globulin 2.4, Albumin/ Globulin Ratio 1.4, PT 16.1 H, INR 1.54 H, CBC w Diff NO MAN DIFF REQ, RBC 3.96 L, MCV 70.7 L, MCH 21.8 L, MCHC 30.8 L, RDW 17.8 H, MPV 7.2 L, Gran % 77.6 H, Lymphocytes % 13.8 L, Monocytes % 5.8, Eosinophils % 2.6, Basophils % 0.2, Absolute Granulocytes 9.9 H, Absolute Lymphocytes 1.8, Absolute Monocytes 0.7 H, Absolute Eosinophils 0.3, Absolute Basophils 0 Microbiology 12/09 220 NASOPHARYN: Influenza Virus A & B Rapid Smear - ORD 12/09 219 NASOPHARYN: Influenza Virus A & B Rapid Smear - RECD 12/08 2330 URINE ROUT: Urine Culture - RECD labs ordered, pt med with morphine 2mg iv, xray ordered Patient reports to feeling improved with morphine I discussed with her x-ray results CAT scan ordered 12/08/2017 11:13:36 PM I discussed with the patient and her CAT scan findings call was placed to orTHO, pt declining anything for pain when offered i spoke with dr pepper she will speak with dr granado in the am, pt will be placed npo at midnight and admitted to medicine. surgical pa sofie aware of pt and will consult case d/w dr cedeno will place in obs Diagnostic Imaging: Viewed by Me: Radiology Read. Discussed w/RAD: Radiology Read. Radiology Impression: PATIENT: DENIZ LOUIS PRESENT AGE: 77 PATIENT ACCOUNT NO: [id number] : 42 LOCATION: [facility] ORDERING PHYSICIAN: Albin EDWARDS SERVICE DATE: 12/08/17 EXAM TYPE: CAT - CT HEAD WO IV CONTRAST EXAMINATION: CT HEAD WITHOUT CONTRAST CLINICAL INFORMATION: Fall. Question hit head. Rule out intracranial hemorrhage COMPARISON: 11/30/2017 TECHNIQUE: Contiguous axial imaging was performed from the skull base to vertex without intravenous administration of contrast. DLP: 621 mGy-cm FINDINGS: There is no evidence of acute intracranial hemorrhage or territorial infarction. No abnormal mass effect or midline shift is seen. Mancia to white matter differentiation is well preserved. No extra-axial fluid collections are identified. There is symmetric concordant prominence of the ventricles and sulci compatible with age-appropriate diffuse parenchymal volume loss, similar in appearance to the prior study. There is periventricular and subcortical white matter hypodensity consistent with chronic microvascular white matter ischemic changes. Remote left periventricular lacunar infarct again noted. The osseous structures and soft tissues are normal. The mastoid air cells and visualized portions of the paranasal sinuses are well aerated. IMPRESSION: No acute intracranial abnormality. Similar appearance of chronic changes from recent prior study. DICTATED BY: Prasanna Mendez MD DATE/TIME DICTATED:12/08/172227 CRISIS CLINICIAN:DENISHA DATE/TIME TRANSCRIBED:12/08/172227 CONFIDENTIAL, DO NOT COPY WITHOUT APPROPRIATE AUTHORIZATION. <Electronically signed in Other Vendor System> SIGNED BY: Prasnana Mendez MD 12/08/176, xray knee: no acute abnormality, degenerative changes of knee hip/pelvis: s/p r hip replacment. ortho components in position. no fracture of pelvis. neurla stim probve present over right side of sacrum. r hip s/p r hip replacement. no dislocation, surgical clips along the right lateral side of hip, PATIENT: DENIZ LOUIS PRESENT AGE: 77 PATIENT ACCOUNT NO: [id number] : 42 LOCATION: [facility] ORDERING PHYSICIAN: Albin EDWARDS SERVICE DATE : 02/01/18-2158 EXAM TYPE: CAT - CT PELVIS WO IV CONTRAST EXAMINATION: CT PELVIS WITHOUT CONTRAST CLINICAL INFORMATION: Recent right hip surgery. Right hip pain, fall COMPARISON: X-rays to 11/26/2017. CT pelvis 11/26/2017 TECHNIQUE: Helical scanning was performed with submillimeter collimation through the pelvis. Sagittal and coronal multiplanar 2-D reconstructions were obtained. DLP: 1026 mGy-cm FINDINGS: There are partially imaged severe degenerative changes of the lower lumbar spine. No displaced sacral fracture seen. There is degenerative arthrosis of the bilateral sacroiliac joints. Sacral stimulator device is seen. The generator pack is in the subcutaneous fat of the right buttock with the lead extending through a right sacral foramen into the pelvis. The left hip is intact. The pubic symphysis and pubic rami are intact. The patient is status post right hip hemiarthroplasty. Streak artifact from the arthroplasty limits some evaluation. There are skin bret in place laterally seen best on the alarm field technician image, omitted from the transaxial imaging [id number]. There is a nondisplaced vertically oriented fracture through the right greater trochanter. This was not present on the prior study 11/26/2017. The fracture line extends inferiorly to involve the right lateral aspect of the proximal femur adjacent the prosthesis. Colonic diverticulosis without evidence of diverticulitis. Urinary bladder normal. Uterus surgically absent. No adnexal mass. Diastases of the rectus abdominis. Small bowel nondilated. Fat within the inguinal canals bilaterally. No pelvic hematoma. IMPRESSION: The patient is status post interval right hip hemiarthroplasty. There is a periprosthetic fracture that extends along the right lateral aspect of the proximal femur, adjacent the arthroplasty, extending superiorly to involve the right greater trochanter. The fracture was not present on the prior preoperative study. DICTATED BY: Prasanna Mendez MD DATE/TIME DICTATED:12/08/172232 CRISIS CLINICIAN:DENISHA DATE/TIME TRANSCRIBED:12/08/172232 CONFIDENTIAL, DO NOT COPY WITHOUT APPROPRIATE AUTHORIZATION. <Electronically signed in Other Vendor System> SIGNED BY: Prasanna Mendez MD 12/08/17 5060 Initial ED EKG: normal intervals, normal p-waves, normal QRS complex, normal sinus rhythm Prior EKG: unchanged (Albin Ahuja) Departure Departure Time of Disposition: 0019 Disposition: STILL A PATIENT Condition: Stable Clinical Impression Primary Impression: Periprosthetic fracture around internal prosthetic hip joint Qualifiers: Encounter type: initial encounter Laterality: right Qualified Code: M97.01XA - Periprosthetic fracture around internal prosthetic right hip joint, initial encounter Secondary Impressions: Fall Qualifiers: Encounter type: initial encounter Qualified Code: W19.XXXA - Unspecified fall, initial encounter Referrals: Lorna Will MD (PCP/Family) Departure Forms: Customer Survey General Discharge Information Observation Note Spoke With: Josr Cedeno MD Patient In: Non-ED OBS Care Area Rationale for Observation: My rational for observation is as follows-ortho consult, possible or fixation, iv pain medications, preamture discharge would be medically harmful (Albin Ahuja) PA/FIGHTING VEHICLE SYSTEMS MAINTAINER Co-Sign Statement Statement: ED Attending supervision documentation- x I saw and evaluated the patient. I have also reviewed all the pertinent lab results and diagnostic results. I agree with the findings and the plan of care as documented in the PA's/FIGHTING VEHICLE SYSTEMS MAINTAINER's documentation. s/p fall with periprosthetic hip fx [] I have reviewed the ED Record and agree with the PA's/FIGHTING VEHICLE SYSTEMS MAINTAINER's documentation. [] Additions or exceptions (if any) to the PAs/FIGHTING VEHICLE SYSTEMS MAINTAINER's note and plan are summarized below: [] (Dino PAULSON,Joshua)
[2017-12-08] MEDS ORDERED: TAMIFLU75 M1 PO (21:59)
--- NOTE | 2017-12-08 22:36 | CT SCAN REPORT ---
EXAMINATION: CT HEAD WITHOUT CONTRAST CLINICAL INFORMATION: Fall. Question hit head. Rule out intracranial hemorrhage COMPARISON: 11/30/2017 TECHNIQUE: Contiguous axial imaging was performed from the skull base to vertex without intravenous administration of contrast. DLP: 621 mGy-cm FINDINGS: There is no evidence of acute intracranial hemorrhage or territorial infarction. No abnormal mass effect or midline shift is seen. Mancia to white matter differentiation is well preserved. No extra-axial fluid collections are identified. There is symmetric concordant prominence of the ventricles and sulci compatible with age-appropriate diffuse parenchymal volume loss, similar in appearance to the prior study. There is periventricular and subcortical white matter hypodensity consistent with chronic microvascular white matter ischemic changes. Remote left periventricular lacunar infarct again noted. The osseous structures and soft tissues are normal. The mastoid air cells and visualized portions of the paranasal sinuses are well aerated. IMPRESSION: No acute intracranial abnormality. Similar appearance of chronic changes from recent prior study.
--- NOTE | 2017-12-08 22:46 | CT SCAN REPORT ---
EXAMINATION: CT PELVIS WITHOUT CONTRAST CLINICAL INFORMATION: Recent right hip surgery. Right hip pain, fall COMPARISON: X-rays to 11/26/2017. CT pelvis 11/26/2017 TECHNIQUE: Helical scanning was performed with submillimeter collimation through the pelvis. Sagittal and coronal multiplanar 2-D reconstructions were obtained. DLP: 1026 mGy-cm FINDINGS: There are partially imaged severe degenerative changes of the lower lumbar spine. No displaced sacral fracture seen. There is degenerative arthrosis of the bilateral sacroiliac joints. Sacral stimulator device is seen. The generator pack is in the subcutaneous fat of the right buttock with the lead extending through a right sacral foramen into the pelvis. The left hip is intact. The pubic symphysis and pubic rami are intact. The patient is status post right hip hemiarthroplasty. Streak artifact from the arthroplasty limits some evaluation. There are skin bret in place laterally seen best on the distributor of directories image, omitted from the transaxial imaging [id number]. There is a nondisplaced vertically oriented fracture through the right greater trochanter. This was not present on the prior study 11/26/2017. The fracture line extends inferiorly to involve the right lateral aspect of the proximal femur adjacent the prosthesis. Colonic diverticulosis without evidence of diverticulitis. Urinary bladder normal. Uterus surgically absent. No adnexal mass. Diastases of the rectus abdominis. Small bowel nondilated. Fat within the inguinal canals bilaterally. No pelvic hematoma. IMPRESSION: The patient is status post interval right hip hemiarthroplasty. There is a periprosthetic fracture that extends along the right lateral aspect of the proximal femur, adjacent the arthroplasty, extending superiorly to involve the right greater trochanter. The fracture was not present on the prior preoperative study.
[2017-12-08 23:21] LABS: ABSOLUTE BASOPHIL COUNT 0 /CUMM (0.0-0.2); ABSOLUTE EOSINOPHIL COUNT 0.3 /CUMM (0.0-0.7); ABSOLUTE GRANULOCYTE CT 9.9 /CUMM (1.4-6.5); ABSOLUTE LYMPH COUNT 1.8 /CUMM (1.2-3.4); ABSOLUTE MONOCYTE COUNT 0.7 /CUMM (0.10-0.60); BASOPHIL % 0.2 % (0.0-2.0); EOSINOPHIL % 2.6 % (0-5); GRANULOCYTE % 77.6 % (42.2-75.2); MEAN CORPUSCULAR HGB 21.8 PG (27.0-31.0); MEAN CORPUSCULAR HGB CONC 30.8 G/DL (33.0-37.0); MEAN CORPUSCULAR VOLUME 70.7 FL (81.0-99.0); MEAN PLATELET VOLUME 7.2 FL (7.4-10.4); PLATELET COUNT 448 /CUMM (130-400); RBC DISTRIBUTION WIDTH 17.8 % (11.5-14.5); RED BLOOD CELL CT 3.96 /CUMM (4.20-5.40); WHITE BLOOD CELL COUNT 12.7 /CUMM (4.8-10.8)
[2017-12-08 23:26] LABS: PT 16.1 SEC (9.4-12.5)
--- NOTE | 2017-12-08 23:38 | Cons- Orthopedic ---
Sonia Ortiz 12/08/17 2333: General Information and HPI Consulting Request Date of Consult: 12/08/17 Requested By: ED Reason for Consult: right hip periprosthetic fracture sp fall History of Present Illness: 77F presents to ED sp fall at [facility]. She is known to ortho service, as she is POD12 sp right hemiathroplasty for right femoral neck fx after fall at assisted living facility. She was dc'ed from hospital on 12/04 to [facility]. She was attempting to get to the bathroom tonight, and fell. She landed on her right side, and c/o right leg pain. She is unclear of other details of her fall, and says "i don't want to talk about it anymore". She denies cp/sob/n/v/f/c/ lightheadness. Allergies/Medications Allergies: Coded Allergies: STATINS (UNKNOWN 06/05/14) cetirizine (From [facility]) (UNKNOWN 07/09/16) nut - unspecified (ITCHING 07/09/16) Home Med List: Acetaminophen (Tylenol) 325 MG TABLET 2 TAB PO Q6H PRN PAIN (Reported) Alprazolam (Xanax) 0.5 MG TABLET 1 TAB PO Q6H PRN ANXIETY (Reported) Apixaban (Eliquis) 2.5 MG TABLET 1 TAB PO BID ANTICOAGULANT Aspirin (Ecotrin*) 81 MG TABLET.DR 1 TAB PO DAILY HEART/BLOOD (Reported) Calcium Carbonate (TUMS) 200 MG CALCIUM (500 MG) TAB.CHEW 1 TAB PO TID GI ( Reported) Cholecalciferol (Vitamin D3) 1,000 UNIT TABLET 1 TAB PO DAILY SUPPLEMENT ( Reported) Cyclosporine (Restasis) 0.05 % DROPERETTE 1 GTT OU BID BOTH EYES (Reported) Dicyclomine Hydrochloride (Bentyl) 10 MG CAPSULE 1 CAP PO TID GI (Reported) Difluprednate (Durezol) 0.05 % DROPS 1 GTT OU 4XDAILY BOTH EYES (Reported) diphenhydrAMINE HCl (Benadryl) 25 MG CAPSULE 1 CAP PO Q6H PRN ITCHINESS ( Reported) Docusate Sodium (Colace) 100 MG CAPSULE 1 CAP PO BID STOOL SOFTENER (Reported ) Lamotrigine (Lamictal) 100 MG TABLET 1 TAB PO QHS NERVE PAIN (Reported) Loperamide HCl (Loperamide) 2 MG CAPSULE 2 CAP PO Q4H PRN LOOSE STOOLS ( Reported) Loratadine (Claritin) 10 MG TABLET 1 TAB PO DAILY ALLERGIES (Reported) Melatonin 3 MG TABLET 1 TAB PO QHS SLEEP (Reported) Methylcellulose (With Sugar) (Citrucel Powder) 850 GM POWDER 2 GM PO TID PRN GI (Reported) Mirabegron (Myrbetriq) 50 MG TAB.ER.24H 1 TAB PO QHS BLADDER (Reported) Oseltamivir Phosphate (Tamiflu) 75 MG CAPSULE 1 CAP PO DAILY FLU SYMPTOMS ( Reported) Polyethylene Glycol 3350 (Miralax) 17 GRAM POWD.PACK 1 PAC PO DAILY PRN GI ( Reported) dissolve in water Pregabalin (Lyrica) 25 MG CAPSULE 1 CAP PO TID NERVE PAIN (Reported) Quetiapine Fumarate 25 MG TABLET 1 TAB PO QHS MENTAL HEALTH (Reported) Sertraline HCl 100 MG TABLET 1.5 TAB PO DAILY MENTAL HEALTH (Reported) Past History Medical History Neurological: CVA ( right weakness) Cardiovascular: hypertension, hyperlipidemia Respiratory: obstructive sleep apnea, INSOMNIA Gastrointestinal: GERD Musculoskeletal: falls, osteoarthritis Psychiatric: anxiety, bipolar disease, depression Surgical History Pertinent Surgical History: cholecystectomy, tonsillectomy, right hip hemiarthroplasty 11/27/17, [facility] Psychosocial History Where Do You Live? Acute Rehab Primary Language: Japanese Functional Ability Ambulation: walker Exam & Diagnostic Data Vital Signs and I&O Vital Signs Date Time Temp Pulse Resp B/P B/P Pulse O2 O2 Flow FiO2 Mean Ox Delivery Rate 12/08 2311 97.5 79 18 125/59 95 12/08 2200 Room Air 12/08 2058 97.8 78 14 128/60 95 Room Air Physical Exam: gen- nad card-s1s2 rrr pulm-ctab ext-r hip ttp, incision with balbina, mild clip erythema, no fluctuance, no ecchymosis, no drainage. leg propped up on pillow under knee- leg shortened. palp dp bl, gross sensation intact bl, gross foot/ankel movement intact bl Last 24 Hours of Labs: Laboratory Tests 12/08 2314 Chemistry Sodium Pending Potassium Pending Chloride Pending Carbon Dioxide Pending Anion Gap Pending BUN Pending Creatinine Pending BUN/Creatinine Ratio Pending Glucose Pending Calcium Pending Total Bilirubin Pending AST Pending ALT Pending Alkaline Phosphatase Pending Troponin I Pending Total Protein Pending Albumin Pending Globulin Pending Albumin/Globulin Ratio Pending Coagulation PT (9.4 - 12.5 SEC) 16.1 H INR (0.90 - 1.19) 1.54 H Hematology CBC w Diff NO MAN DIFF REQ WBC (4.8 - 10.8 /CUMM) 12.7 H RBC (4.20 - 5.40 /CUMM) 3.96 L Hgb (12.0 - 16.0 G/DL) 8.6 L Hct (37 - 47 %) 28.0 L MCV (81.0 - 99.0 FL) 70.7 L MCH (27.0 - 31.0 PG) 21.8 L MCHC (33.0 - 37.0 G/DL) 30.8 L RDW (11.5 - 14.5 %) 17.8 H Plt Count (130 - 400 /CUMM) 448 H MPV (7.4 - 10.4 FL) 7.2 L Gran % (42.2 - 75.2 %) 77.6 H Lymphocytes % (20.5 - 51.1 %) 13.8 L Monocytes % (1.7 - 9.3 %) 5.8 Eosinophils % (0 - 5 %) 2.6 Basophils % (0.0 - 2.0 %) 0.2 Absolute Granulocytes (1.4 - 6.5 /CUMM) 9.9 H Absolute Lymphocytes (1.2 - 3.4 /CUMM) 1.8 Absolute Monocytes (0.10 - 0.60 /CUMM) 0.7 H Absolute Eosinophils (0.0 - 0.7 /CUMM) 0.3 Absolute Basophils (0.0 - 0.2 /CUMM) 0 Imaging Results: SERVICE DATE: 12/08/17 EXAM TYPE: CAT - CT PELVIS WO IV CONTRAST EXAMINATION: CT PELVIS WITHOUT CONTRAST CLINICAL INFORMATION: Recent right hip surgery. Right hip pain, fall COMPARISON: X-rays to 11/26/2017. CT pelvis 11/26/2017 TECHNIQUE: Helical scanning was performed with submillimeter collimation through the pelvis. Sagittal and coronal multiplanar 2-D reconstructions were obtained. DLP: 1026 mGy-cm FINDINGS: There are partially imaged severe degenerative changes of the lower lumbar spine. No displaced sacral fracture seen. There is degenerative arthrosis of the bilateral sacroiliac joints. Sacral stimulator device is seen. The generator pack is in the subcutaneous fat of the right buttock with the lead extending through a right sacral foramen into the pelvis. The left hip is intact. The pubic symphysis and pubic rami are intact. The patient is status post right hip hemiarthroplasty. Streak artifact from the arthroplasty limits some evaluation. There are skin balbina in place laterally seen best on the tank car mechanic image, omitted from the transaxial imaging [id number]. There is a nondisplaced vertically oriented fracture through the right greater trochanter. This was not present on the prior study 11/26/2017. The fracture line extends inferiorly to involve the right lateral aspect of the proximal femur adjacent the prosthesis. Colonic diverticulosis without evidence of diverticulitis. Urinary bladder normal. Uterus surgically absent. No adnexal mass. Diastases of the rectus abdominis. Small bowel nondilated. Fat within the inguinal canals bilaterally. No pelvic hematoma. IMPRESSION: The patient is status post interval right hip hemiarthroplasty. There is a periprosthetic fracture that extends along the right lateral aspect of the proximal femur, adjacent the arthroplasty, extending superiorly to involve the right greater trochanter. The fracture was not present on the prior preoperative study. R HIP XRAYS: pending Assessment/Plan Assessment/Plan 77yoF with periprosthetic fracture of right hip sp fall, POD12 sp right hemiarthroplasty for right femoral neck fx sp fall, otherwise stable P- -will likely require operative fixation once medically optimized - hold anticoagulation -npo p mn - await medical clearance -will dw attending Consult Acknowledgment - Thank you for your consult request. Serenity Arzola MD 12/09/17 1021: Assessment/Plan Consult Acknowledgment - Thank you for your consult request. Attending MD Review Statement Attending Statement Attending MD Statement: examined this patient, discuss w/resident/PA/[facility] NURSE, discussed with family, reviewed images Attending Assessment/Plan: Patient seen and examined this morning. Right hip periprosthetic fracture s/p fall yesterday; she is 2wks out from a right hip press-fit hemiarthroplasty by Dr. Mcgowan. Fracture of the greater trochanter with some extension down the lateral distal femur. She is asking for food. Denies hip pain unless she moves the right leg. No pain in the left leg. She is requesting a new wheel chair. Exam: Right lower extremity Balbina in place over lateral proximal hip; incision clean, dry, intact without drainage or erythema Tender to palpation over lateral and anterior hip. Pain in right hip with active-assist knee flexion/hip flexion. Intact ankle DF/PF SILT over right foot and ankle. Feet warm and well-perfused SCDs in place over bilateral lower legs A/P: 77yo F 2wks s/p right hip hemiathroplasty; s/p fall yesterday resulting in periprosthestic fracture of the greater trochanter. Imaging reviewed with Dr. Mcgowan; implant appears stable. Will plan for non-operative management with protected weight bearing to tolerance, posterior hip precautions, and no active abduction of the hip. Patient may eat today Resume Eliquis for DVT prophylaxis Out of bed with PT Resume home medications Pain control - IV tylenol, ice to hip; limit narcotics Bowel regimen May d/c back to rehab when medically stable and pain controlled. Balbina may be removed at rehab facility in next 3-5 days. Plan of care discussed with patient's son. Follow up with Dr. Mcgowan as scheduled.
--- NOTE | 2017-12-09 01:06 | History & Physical ---
Brandt PAULSON,[facility] 12/09/17 0105: General Information and HPI MD Statement: I have seen and personally examined DENIZ BERRY and documented this H&P. The patient is a 77 year old F who presented with a patient stated chief complaint of [R hip fracture]. Source of Information: patient History of Present Illness: 77-year-old F with a pmhx of CVA with R hemiparesis, htn, hld, TEJINDER, insomnia, GERD, osteoarthritis, anxiety, bipolar disaese, depression presenting from [facility] and recently discharged 12/04/17 s/p R ORIF for a fall. The patient states that she had a mechnical fall while attempting to get on the toilet. She states she fell forward onto her R side. She states she did hit her head. She did no pass out. No incontienence, cp, sweats, warm flashes, feelings of passing out, abd pain, n/v/d. She states that she currently as worst R knee and R hip pain. She states that she had some R knee and R hip pain after discharge to [facility] which has prevented her from fully participating in rehab. Allergies/Medications Allergies: Coded Allergies: STATINS (UNKNOWN 06/05/14) cetirizine (From [facility]) (UNKNOWN 07/09/16) nut - unspecified (ITCHING 07/09/16) Home Med list Acetaminophen (Tylenol) 325 MG TABLET 2 TAB PO Q6H PRN PAIN (Reported) Alprazolam (Xanax) 0.5 MG TABLET 1 TAB PO Q6H PRN ANXIETY (Reported) Apixaban (Eliquis) 2.5 MG TABLET 1 TAB PO BID ANTICOAGULANT Aspirin (Ecotrin*) 81 MG TABLET.DR 1 TAB PO DAILY HEART/BLOOD (Reported) Calcium Carbonate (TUMS) 200 MG CALCIUM (500 MG) TAB.CHEW 1 TAB PO TID GI ( Reported) Cholecalciferol (Vitamin D3) 1,000 UNIT TABLET 1 TAB PO DAILY SUPPLEMENT ( Reported) Cyclosporine (Restasis) 0.05 % DROPERETTE 1 GTT OU BID BOTH EYES (Reported) Dicyclomine Hydrochloride (Bentyl) 10 MG CAPSULE 1 CAP PO TID GI (Reported) Difluprednate (Durezol) 0.05 % DROPS 1 GTT OU 4XDAILY BOTH EYES (Reported) diphenhydrAMINE HCl (Benadryl) 25 MG CAPSULE 1 CAP PO Q6H PRN ITCHINESS ( Reported) Docusate Sodium (Colace) 100 MG CAPSULE 1 CAP PO BID STOOL SOFTENER (Reported ) Lamotrigine (Lamictal) 100 MG TABLET 1 TAB PO QHS NERVE PAIN (Reported) Loperamide HCl (Loperamide) 2 MG CAPSULE 2 CAP PO Q4H PRN LOOSE STOOLS ( Reported) Loratadine (Claritin) 10 MG TABLET 1 TAB PO DAILY ALLERGIES (Reported) Melatonin 3 MG TABLET 1 TAB PO QHS SLEEP (Reported) Methylcellulose (With Sugar) (Citrucel Powder) 850 GM POWDER 2 GM PO TID PRN GI (Reported) Mirabegron (Myrbetriq) 50 MG TAB.ER.24H 1 TAB PO QHS BLADDER (Reported) Oseltamivir Phosphate (Tamiflu) 75 MG CAPSULE 1 CAP PO DAILY FLU SYMPTOMS ( Reported) Polyethylene Glycol 3350 (Miralax) 17 GRAM POWD.PACK 1 PAC PO DAILY PRN GI ( Reported) dissolve in water Pregabalin (Lyrica) 25 MG CAPSULE 1 CAP PO TID NERVE PAIN (Reported) Quetiapine Fumarate 25 MG TABLET 1 TAB PO QHS MENTAL HEALTH (Reported) Sertraline HCl 100 MG TABLET 1.5 TAB PO DAILY MENTAL HEALTH (Reported) Past History Travel History Traveled to [place] past 21 day No Medical History Neurological: CVA ( right weakness) Cardiovascular: hypertension, hyperlipidemia Respiratory: obstructive sleep apnea, INSOMNIA Gastrointestinal: GERD Musculoskeletal: falls, osteoarthritis Psychiatric: anxiety, bipolar disease, depression History of MRSA: No History of VRE: No History of CDIFF: No Influenza Vaccine: 10/07/17 Surgical History Surgical History: cholecystectomy, tonsillectomy right hip hemiarthroplasty 11/27, [facility] Past Family/Social History Psychosocial History Where do you live? Acute Rehab Primary Language: Divehi Functional Ability Ambulation: walker Review of Systems Review of Systems Constitutional: Reports: no symptoms. Cardiovascular: Reports: no symptoms. Respiratory: Reports: no symptoms. GI: Reports: no symptoms. Genitourinary: Reports: no symptoms. Musculoskeletal: Reports: see HPI (R hip and knee pain), joint pain. Skin: Reports: no symptoms. Exam & Diagnostic Data Last 24 Hrs of Vital Signs/I&O Vital Signs Date Time Temp Pulse Resp B/P B/P Pulse O2 O2 Flow FiO2 Mean Ox Delivery Rate 12/09 0405 98.7 67 20 122/62 97 Room Air 12/09 0251 97.6 72 18 116/55 94 12/08 2312 97.5 79 18 125/59 95 12/08 2201 Room Air 12/08 2058 97.8 78 14 128/60 95 Room Air Intake & Output 12/09 0800 12/09 0000 12/08 1600 Intake Total Output Total 110 Balance -110 Output, Urine 110 Patient 200 lb Weight Physical Exam General Appearance No Acute Distress, AOX1. Patient able to state that trirvin is president. Skin R hip mild erythema compared to L HEENT eye crusts Neck no lymphadenopathy Cardiovascular Regular Rate, Normal S1, Normal S2 Lungs Clear to Auscultation, Normal Air Movement Abdomen Normal Bowel Sounds, Soft, No Tenderness Extremities RLE tenderness to palpation, R hip swelling compared to L, R surgical scar and bret. Scar site is clean, dry and intact Vascular 2+ radial and pedal pulses Assessment/Plan Assessment: 77-year-old F with a pmhx of CVA with R hemiparesis, htn, hld, TEJINDER, insomnia, GERD, osteoarthritis, anxiety, bipolar disaese, depression presenting from [facility] and recently discharged 12/04/17 s/p R ORIF for a fall found to have a repeat R hip fracture. #R hip fracture s/p previous ORIF VSS H/H 8.05/04 - baseline WBC 12.[address]: No acute intracranial abnormality pelvis ct: There is a periprosthetic fracture that extends along the right lateral aspect of the proximal femur, adjacent the arthroplasty, extending superiorly to involve the right greater trochanter. -keep npo -hold anticoagulation -plan for OR tomorrow #chronic microcytic anemia H/H 8.05/04 - baseline -continue to monitor -consider R hip u/s if h/h drops and concerned for hematoma #constipation -senna #mental health -cont seroquel, sertraline, lamotrigene, alprazolam #overactive bladder -cont mirabegron #chronic pain -cont lyrica #dry eyes -cont cyclosporine #FULL CODE #DVT prophyalxis -holding anticoagulation for possible surgery tomorrow As Ranked By This Provider Problem List: 1. Periprosthetic fracture around internal prosthetic hip joint Qualifiers Encounter type: initial encounter Laterality: right Qualified Code: M97.01XA - Periprosthetic fracture around internal prosthetic right hip joint, initial encounter Core Measures/Misc (07/24) Acute Coronary Syndrome ACS Diagnosis: No Congestive Heart Failure Congestive Heart Failure Diagnosis No Cerebrovascular Accident CVA/TIA Diagnosis: No VTE (View Protocol) VTE Risk Factors Acute Medical Illness No Mechanical VTE Prophylaxis d/t Physical Contraindication No VTE Pharm Prophylaxis d/t Surgical Contraindication Sepsis (View protocol) Sepsis Present: No Elia Rose MD 12/09/17 0401: Resident Review Statement Resident Statement: examined this patient, discussed with epidemiology internship, agreed with epidemiology internship, discussed with family Other Findings: Ms. Berry is 87 year old female with past medical history significant for hypertension, diabetes mellitus, hyperlipidemia, status post CVA with right lower extremity weakness, obstructive sleep apnea, osteoporosis, GERD, anxiety and bipolar disorder, with frequent falls was discharged on 12/04/17 status post right hip arthroplasty POD12 for right comminuted displaced subcapital femoral neck fracture on [facility], admission was complicated by post operative delirium and fever. Patient presented from [facility] after a fall. Most of the history obtained from the patient. She reported that what she was using the bathroom "using one of the fancy new toilet" she fell face down and hit her head , she denied any dizziness, lightheadedness, headache, blurry vision, chest pain , palpitation, shortness of breath. She reported immediate pain in the right knee and hip joint, cold for help and was transferred to ED for evaluation. In ED, vital signs were temperature 97.8, pulse 78, blood pressure 128/60, respiratory rate 14 with saturation 95% on room air CT head didn't reveal any intracranial pathology, CT pelvis with IV contrast showed periprosthetic fracture that extends along the right lateral aspect of the proximal femur, adjacent the arthroplasty, extending superiorly to involve the right greater trochanter. Significant for Leukocytosis 12.7 with 1 Band Neutrophils and Left Shift, microcytic anemia H&H 8.6/28, platelet 448, sodium 146, potassium 4.1, chloride 108, bicarbonate 25, BUN/creatinine 24/1, glucose 127, troponin less than 0.01. Problem list Fracture of periprosthetic fracture of right hip Frequent falls Leukocytosis most reactional Microcystic anemia Hyponatremia mostly dehydration given elevated BUN Plan Admit to general medical floor Orthopedic consultation Pain control Keep nothing by mouth at midnight Start IV fluid D5 half-normal 75 mL/h Type and crossmatch We'll add on iron studies Continue home medication A,, sertraline, Seroquel, lamotrigine, myrbetriq, cyclosporine eyedrop (history of dry eye questionable Sjogren's syndrome), Xanax Patient was on Tamiflu in [facility] however she denied any symptoms of upper respiratory infection, will discontinue Tamiflu Hold Elqiuis Code full Josr Cedeno 12/09/17 0525: Attending MD Review Statement Attending Statement Attending MD Statement: examined this patient, discuss w/resident/PA/REGISTERED PUBLIC SURVEYOR, agreed w/resident/PA/REGISTERED PUBLIC SURVEYOR, reviewed EMR data (avail), reviewed images, amended to note Attending Assessment/Plan: CC: fall PMH: HLD, CVA with residual right-sided weakness, TEJINDER, GERD, anxiety/depression, bipolar disorder Patient was recently admitted from November 26 to December 04 for fall and right femur femoral neck fracture Patient underwent right hip hemiarthroplasty on . Patient's stay was complicated by delirium and dropping H&H for possible hematoma and fever. Patient was watched off antibiotics, provided supportive care and discharged to ECF once delirium improved. After going to [facility] patient still had persistent right leg pain and was finding difficulty to participate in rehabilitation. She was attempting to get to toilet when he fell accidentally hitting her head and fell forward on right side. Immediately after fall with pain in right leg worsened, she was rushed to ER. She denies any seizure-like activity, bowel bladder accidents, and loss of consciousness, chest pain. She denies any significant headache, blurry vision. Patient is a poor and unreliable historian. Vitals: Afebrile, pulse in 70s, RR 18, blood pressure 128/60, saturating 99% on room air. On exam: A O 1, cooperative, distress due to pain, neck supple, JVD normal, no lymphadenopathy, mucosa moist, no focal neurological deficit, no dependent edema , mild inflammation near stitches, stitch intact, no hematoma or gaping, no bleeding CVS: S1-S2, RRR. RS: Clear to auscultate bilaterally. Abdomen: Soft, NT , ND, bowel sounds present. Labs: WBC 12.7, hemoglobin 8.6, hematocrit 28.0, RDW 17.8, MCV 70.7, platelets 448, neutrophils 77%, sodium 146, potassium 4.1, chloride 108, bicarbonate 25, BUN 24, creatinine 1.0, glucose 127, calcium 9.1, LFT unremarkable, troponin less than 0.01, INR 1.54 ECG: No acute changes CT head: No acute intracranial abnormality. Similar appearance of chronic changes from recent prior study. CT pelvis without IV contrast: The patient is status post interval right hip hemiarthroplasty. There is a periprosthetic fracture that extends along the right lateral aspect of the proximal femur, adjacent the arthroplasty, extending superiorly to involve the right greater trochanter. The fracture was not present on the prior preoperative study. Assessment and plan 77-year-old female was brought in ER from assisted living after what appears to be accidental fall, no loss of consciousness, head strike, open injuries. She was admitted for similar fall and right femoral neck fracture, S/P right hip hemiarthroplasty. Her hospital stay was complicated by delirium, fever and dropping H&H, there was a suspicion of hematoma, patient received one transfusion, eventually patient was discharged once delirium improved. After the discharge patient was finding difficulty to participate with rehabilitation because of pain and had a mechanical fall today. Patient endorses head trauma but no loss of consciousness, seizure-like activity, not feeling dizzy or chest pain before the fall. No focal neurological deficits, there is right hip tenderness on examination, suture line intact, no open wounds. Patient is found to have a periprosthetic fracture extending along the right lateral aspect of femur. Orthopedic surgeon was contacted from ER. Of Patient does not have any significant history of CAD, HF, DM. 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 She has low estimated risk for adverse outcomes for noncardiac surgery, 0.9% morbidity and mortality related to cardiac issues. No acute ECG changes, troponin negative, no chest pain, low risk for surgery. Patient's polypharmacy can be one of the factors for recurrent falls. Reviewing her records patient had been in ER several times for falls since 2016. + Right periprosthetic fracture of right lateral aspect of femur + Preop evaluation + Recurrent falls + Microcytic anemia: Obtain iron studies + Hx of HLD, CVA with residual right-sided weakness, TEJINDER, GERD, anxiety/ depression, bipolar disorder - Admit to general medicine - Continue gentle hydration - Adequate pain control - Nothing by mouth after midnight - Appreciate surgery consult - Continue Tamiflu as it was started in ECF - Hold Eliquis - Continue all her home medications - DVT prophylaxis
[2017-12-09 04:05] VITALS: BP 122/62
--- NOTE | 2017-12-09 05:27 | Admission Certification ---
Admission Certification Certification Statement - As attending physician, I certify that at the time of - admission, based on clinical presentation, severity of - symptoms, need for further diagnostic testing and - therapeutic interventions, and risk of adverse outcomes - without in-hospital treatment, in my clinical assessment, - this patient requires an acute hospital stay for a minimum - of two nights or longer. I have also considered psychsocial - factors such as support system, advanced age, financial - issues, cognitive issues, and failed out-patient treatments, - past re-admission history, safety of patient, and lack of - compliance as applicable. Specific rationale supporting this admission is: Mechanical fall, right femer periprosthetic fracture
[2017-12-09 05:51] VITALS: BP 130/72
--- NOTE | 2017-12-09 07:18 | PN- Housestaff ---
Dutch PAULSON,Janet 12/09/17 0717: Subjective Follow-up For: fall periprosthesis fracture delirium Subjective: patient is in pain this morning at the site of fracture. other than that she has no complaints. this morning she was AOx3 but this afternoon she was only AOx2 and was having some visual hallucinations simlar to show she was during her last admission. Review of Systems Constitutional: Reports: weakness. Cardiovascular: Reports: no symptoms. Respiratory: Reports: no symptoms. Gastrointestinal: Reports: no symptoms. Genitourinary: Reports: no symptoms. Musculoskeletal: Reports: back pain, joint pain, muscle pain. Skin: Reports: no symptoms. Neurological/Psychological: Reports: see HPI, anxiety, cognitive dysfunction. Objective Last 24 Hrs of Vital Signs/I&O Vital Signs Date Time Temp Pulse Resp B/P B/P Pulse O2 O2 Flow FiO2 Mean Ox Delivery Rate 12/09 1537 98.8 68 18 102/58 93 12/09 0551 98.4 72 20 130/72 95 Room Air 12/09 0405 98.7 67 20 122/62 97 Room Air 12/09 0251 97.6 72 18 116/55 94 12/08 2312 97.5 79 18 125/59 95 12/08 2201 Room Air 12/08 2059 97.8 78 14 128/60 95 Room Air Intake & Output 12/09 1600 12/09 0800 12/09 0000 Intake Total 150 Output Total 310 Balance -160 Intake, IV 150 Output, Urine 310 Patient 200 lb Weight Physical Exam General Appearance: Alert, Cooperative, No Acute Distress Skin: No Rashes Skin Temp/Moisture Exam: Warm/Dry HEENT: Atraumatic, PERRLA, EOMI, Mucous Membr. moist/pink Cardiovascular: Regular Rate, Normal S1, Normal S2, No Murmurs Lungs: Clear to Auscultation, Normal Air Movement Abdomen: Normal Bowel Sounds, Soft, No Tenderness Neurological: Normal Speech Extremities: No Clubbing, No Cyanosis, No Edema, Normal Pulses, right hip pain on light palpation Vascular: Normal Pulses, Pulses Symmetrical Current Medications: Current Medications Sig/Danyell Start time Last Medication Dose Route Stop Time Status Admin Acetaminophen 1,000 MG Q6P PRN 12/09 1200 AC N/A 1 UNIT IV Alprazolam 0.5 MG Q6H PRN 12/09 0215 AC PO 12/16 0214 Apixaban 2.5 MG BID 12/09 1000 AC 12/09 PO 1133 Aspirin Buffered 81 MG DAILY 12/09 1738 AC PO Calcium Carbonate 250 MG TID 12/09 1738 AC PO Cholecalciferol 400 IU DAILY 12/09 1739 AC PO Cyclosporine 1 GTT BID 12/09 1000 AC 12/09 OPH 1134 Dextrose/Sodium 1,000 ML .[id number] 12/09 0200 DC 12/09 Chloride IV 0409 Ibuprofen 600 MG Q6P PRN 12/09 0200 DC PO Lamotrigine 100 MG AT BEDTIME 12/09 0230 AC PO Lamotrigine 100 MG ONCE ONE 12/08 2345 DC 12/09 PO 12/08 2346 0113 Loperamide HCl 4 MG Q4H PRN 12/09 1745 AC PO Mirabegron 50 MG AT BEDTIME 12/09 2200 AC PO Morphine Sulfate 2 MG Q6P PRN 12/09 1200 AC IV Morphine Sulfate 0 .STK-MED ONE 12/09 0307 DC .ROUTE Morphine Sulfate 2 MG Q4P PRN 12/09 0200 DC IV Morphine Sulfate 0 .STK-MED ONE 12/08 2110 DC .ROUTE Morphine Sulfate 2 MG ONCE ONE 12/08 2100 DC 12/08 IV 12/08 2101 2110 Oxycodone/ 1 TAB Q6P PRN 12/09 0200 AC 12/09 Acetaminophen PO 1344 Oxycodone/ 1 TAB ONCE ONE 12/08 2100 CAN Acetaminophen PO 12/08 2101 Pregabalin 25 MG TID 12/09 1000 AC 12/09 PO 1729 Quetiapine Fumarate 25 MG AT BEDTIME 12/09 2200 AC PO Quetiapine Fumarate 25 MG ONCE ONE 12/08 2345 DC 12/09 PO 12/08 2346 0113 Senna/Docusate Sodium 1 TAB AT BEDTIME 12/09 2200 AC PO Sertraline HCl 150 MG DAILY 12/09 1000 AC 12/09 PO 1335 Last 24 Hrs of Lab/Ryan Results Last 24 Hrs of Labs/Mics: Laboratory Tests 12/09/17 0715: Anion Gap 10, Estimated GFR > 60, BUN/Creatinine Ratio 24.4, Iron 23 L, TIBC 223 L, Ferritin 103.0, CBC w Diff NO MAN DIFF REQ, RBC 3.79 L, MCV 70.8 L, MCH 22.0 L, MCHC 31.1 L, RDW 17.2 H, MPV 7.5, Gran % 64.6, Lymphocytes % 25.0 , Monocytes % 6.1, Eosinophils % 4.1, Basophils % 0.2, Absolute Granulocytes 6.6 H, Absolute Lymphocytes 2.6, Absolute Monocytes 0.6, Absolute Eosinophils 0.4, Absolute Basophils 0 12/08/17 2315: Anion Gap 13, Estimated GFR 54 L, BUN/Creatinine Ratio 24.0, Glucose 127 H, Calcium 9.1, Total Bilirubin 0.2, AST 31, ALT 49, Alkaline Phosphatase 120, Troponin I < 0.01, Total Protein 5.7 L, Albumin 3.3 L, Globulin 2.4, Albumin/ Globulin Ratio 1.4, PT 16.1 H, INR 1.54 H, CBC w Diff NO MAN DIFF REQ, RBC 3.96 L, MCV 70.7 L, MCH 21.8 L, MCHC 30.8 L, RDW 17.8 H, MPV 7.2 L, Gran % 77.6 H, Lymphocytes % 13.8 L, Monocytes % 5.8, Eosinophils % 2.6, Basophils % 0.2, Absolute Granulocytes 9.9 H, Absolute Lymphocytes 1.8, Absolute Monocytes 0.7 H, Absolute Eosinophils 0.3, Absolute Basophils 0 Microbiology 12/09 220 NASOPHARYN: Influenza Virus A & B Rapid Smear - CAN Cancelled: Cancelled via OE: Per MD Decision 12/09 219 NASOPHARYN: Influenza Virus A & B Rapid Smear - COMP 12/08 2330 URINE ROUT: Urine Culture - RECD Assessment/Plan Assessment: 77-year-old F with a pmhx of CVA with R hemiparesis, htn, hld, TEJINDER, insomnia, GERD, osteoarthritis, anxiety, bipolar disaese, depression presenting from [facility] and recently discharged 12/04/17 s/p R ORIF for a fall found to have a repeat R hip fracture. #R hip fracture s/p previous ORIF -VSS -Hemoglobin 8.3- baseline -WBC 10.2 -head ct: No acute intracranial abnormality -pelvis ct: There is a periprosthetic fracture that extends along the right lateral aspect of the proximal femur, adjacent the arthroplasty, extending superiorly to involve the right greater trochanter. -Patient was kept NPO and without her AC for potential surgery but as per Dr. Arzola, ortho, conservative management including painkillers and weightbearing protected to tolerance with avoidance of hip abduction. -We will restart patient's 2.5 BID eliquis that she was put on after her last hip surgery with dr. granado -Pain pathway with ofirmev percocet morphine 2mg q6h -According to PT, patient self limited her involvement in PT at her facility as she was nervous to move too much -Patient has bedoya in secondary to pain and not being able to use the toilet or bedpan #chronic microcytic anemia -continue to monitor -consider R hip u/s if h/h drops and concerned for hematoma -type and cross match for potential need for transfusion -guaic was negative during last admission -iron tests show low iron and TIBC with normal ferritin and low MCV - microcytic anemia secondary to iron deficiency or bleed #delirium -patient had post op delirium and fever worked up last time -we will continue to monitor -metabolic reasons were ruled out as was seizure and NPH (Dr. Art saw the patient). Possibly polypharmacy as per Psych with recommendation to follow up with her psych doctor outpatient. #constipation -senna #mental health -cont seroquel, sertraline, lamotrigene, alprazolam #overactive bladder -cont mirabegron #chronic pain -cont lyrica #dry eyes -cont cyclosporine #FULL CODE #DVT prophyalxis Eliquis #Regular diet Problem List: 1. Periprosthetic fracture around internal prosthetic hip joint 2. Delirium 3. Fall Pain Ratin Pain Location: right hip Pain Goal: Pain 4 or less Pain Plan: morphine 2mg q6h, ofirmev, percocet (pain pathway) Tomorrow's Labs & Rationales: cbc Nellie Lawrence MD 12/09/17 1219: Attending MD Review Statement Attending Statement Attending MD Statement: examined this patient, discuss w/resident/PA/HAT STEAMER, agreed w/resident/PA/HAT STEAMER, discussed with family, reviewed EMR data (avail), discussed with nursing, discussed with case mgmt, reviewed images Attending Assessment/Plan: This is a 77-year-old female who has a past medical history of CVA with residual weakness, multiple falls and polypharmacy who was recently here with a femoral neck fracture, complicated hospital course with eventual DC to [facility] and on postoperative day 12 fell again at the [facility] and has a periprosthetic fracture of the right femur. I was under the impression that she would go to the OR today but the orthopedic surgeons, in reviewing her films feels that the best approach is nonoperative treatment with partial weightbearing and no hip abduction. This was communicated both to the patient and the patient's son. We are feeding her a diet, restarted her Eliquis and will put in a PT eval. She is asking for the catheter to stay in at least for the next 24-48 hours and in view of the pain and discomfort will continue that. Will watch her closely and will also need to reevaluate the polypharmacy as that is likely contributing to the falls.
[2017-12-09 08:23] LABS: ABSOLUTE BASOPHIL COUNT 0 /CUMM (0.0-0.2); ABSOLUTE EOSINOPHIL COUNT 0.4 /CUMM (0.0-0.7); ABSOLUTE GRANULOCYTE CT 6.6 /CUMM (1.4-6.5); ABSOLUTE LYMPH COUNT 2.6 /CUMM (1.2-3.4); ABSOLUTE MONOCYTE COUNT 0.6 /CUMM (0.10-0.60); BASOPHIL % 0.2 % (0.0-2.0); EOSINOPHIL % 4.1 % (0-5); GRANULOCYTE % 64.6 % (42.2-75.2); HEMATOCRIT 26.8 % (37-47); MEAN CORPUSCULAR HGB CONC 31.1 G/DL (33.0-37.0); MEAN CORPUSCULAR VOLUME 70.8 FL (81.0-99.0); MEAN PLATELET VOLUME 7.5 FL (7.4-10.4); PLATELET COUNT 425 /CUMM (130-400); RBC DISTRIBUTION WIDTH 17.2 % (11.5-14.5); RED BLOOD CELL CT 3.79 /CUMM (4.20-5.40); WHITE BLOOD CELL COUNT 10.2 /CUMM (4.8-10.8)
--- NOTE | 2017-12-09 12:44 | Discharge Summary ---
Visit Information Visit Dates Admission Date: 12/09/17 Discharge Date: 12/12/17 Hospital Course Course Attending Physician: Scott PAULSON,Nellie Lucas Primary Care Physician: Lorna Will MD Consulting Request: Consulting Specialty: Orthopedics Consulting Physician: Reason for Consult: Periprosthetic fracuture Hospital Course: 77-year-old female was brought in ER from assisted living after what appears to be accidental fall, no loss of consciousness, head strike, open injuries. She was admitted for similar fall and right femoral neck fracture, S/P right hip hemiarthroplasty. Her hospital stay was complicated by delirium, fever and dropping H&H, there was a suspicion of hematoma, patient received one transfusion, eventually patient was discharged once delirium improved. After the discharge patient was finding difficulty to participate with rehabilitation because of pain and had a mechanical fall today. Patient endorses head trauma but no loss of consciousness, seizure-like activity, not feeling dizzy or chest pain before the fall. No focal neurological deficits, there is right hip tenderness on examination, suture line intact, no open wounds. Patient is found to have a periprosthetic fracture extending along the right lateral aspect of femur. Orthopedic surgeon was contacted from ER. Patient's polypharmacy can be one of the factors for recurrent falls. Reviewing her records patient had been in ER several times for falls since 2016. EXAM Right lower extremity [place] in place over lateral proximal hip; incision clean, dry, intact without drainage or erythema Tender to palpation over lateral and anterior hip. Pain in right hip with active-assist knee flexion/hip flexion. Intact ankle DF/PF SILT over right foot and ankle. Feet warm and well-perfused Problem list 1. Right periprosthetic fracture of right lateral aspect of femur 2. Recurrent falls/polypharmacy/tends to get delirious easily 3. Microcytic anemia 4. Hx of HLD, CVA with residual right-sided weakness, TEJINDER, GERD, anxiety/ depression, bipolar disorder Admit to general medicine and the following is the the management Right periprosthetic hip fracture Intially kept NPO considering revisional surgery, however after discussing with orthopedics --> planned for non-operative management with protected weight bearing to tolerance, posterior hip precautions. No active abduction of the hip. Pain control with Tylenol, ice to hip, minimal use narcotics given age and possibility of delirium. Eliquis which was held intially was restarted once planned nonoperative approach. Chronic medical conditions GERD and anxiety along with bipolar depression, insomnia, neuropathy, Continue TUMS, sertraline, Lamictal, Seroquel, melatonin, Lyrica, artificial tears, mibegron for urinary incontinence. As stated about the plan for the patient is nonoperative treatment. Patient and patient's family are well aware of this. The Eliquis is for DVT prophylaxis but given her underlying anemia with a baseline hemoglobin of 8, a close watch should be kept on the CBC. In the next week or so she should have a Geriatrics evaluation to consider polypharmacy as a cause of her frequent falls, to try and minimize medication and minimize chances of delirium. Discontinued xanax at discharge as it could worsen delirium. Complications: None Allergies: Coded Allergies: STATINS (UNKNOWN 06/05/14) cetirizine (From ZYRTEC) (UNKNOWN 07/09/16) nut - unspecified (ITCHING 07/09/16) Significant Procedures: Head CT s/p fall 12/08/17 IMPRESSION: No acute intracranial abnormality. Similar appearance of chronic changes from recent prior study. Pelvic CT 12/08/17 IMPRESSION: The patient is status post interval right hip hemiarthroplasty. There is a periprosthetic fracture that extends along the right lateral aspect of the proximal femur, adjacent the arthroplasty, extending superiorly to involve the right greater trochanter. The fracture was not present on the prior preoperative study. Pertinent Lab Results: as above Disposition Summary Disposition Principal Diagnosis: Periprosthetic hip fracture Microcytic anemia Hx of HLD, CVA with residual right-sided weakness, TEJINDER, GERD, anxiety/depression , bipolar disorder Additional Diagnosis: Recurrent falls Discharge Disposition: short term rehab Discharge Instructions General Discharge Information Code Status: Full Code Patient's Diet: regular diet Patient's Activity: protected weight bearing to tolerance, posterior hip precautions. No active abduction of the hip.as per orthopedic recommendations Follow-Up Instructions/Appts: Please follow up with your PCP in a week Please follow up with orthopedician in a week Please check CBC in 3-4 days. Discharge hemoglobin is 8 which appears to be at patient's baseline. Medications at Discharge Discharge Medications: Stop taking the following medications: Alprazolam (Xanax) 0.5 MG TABLET ORAL Q6H as needed for ANXIETY Oseltamivir Phosphate (Tamiflu) 75 MG CAPSULE ORAL DAILY Continue taking these medications: Aspirin (Ecotrin*) 81 MG TABLET.DR 1 Tablet ORAL DAILY Comments: Last Taken: 12/04/17 Time: 9:00 AM Lamotrigine (Lamictal) 100 MG TABLET 1 Tablet ORAL TAKE AT BEDTIME Comments: Last Taken: 12/04/17 Time: 9:00 AM Cholecalciferol (Vitamin D3) 1,000 UNIT TABLET 1 Tablet ORAL DAILY Comments: Last Taken: 12/04/17 Time: 9:00 AM Melatonin (Melatonin) 3 MG TABLET 1 Tablet ORAL TAKE AT BEDTIME Comments: NOT GIVEN IN HOSPITAL Acetaminophen (Tylenol) 325 MG TABLET 2 Tablet ORAL Q6H as needed for PAIN Comments: Last Taken: 12/03/17 Time: 9:30 AM Loratadine (Claritin) 10 MG TABLET 1 Tablet ORAL DAILY Comments: NOT GIVEN IN HOSPITAL Docusate Sodium (Colace) 100 MG CAPSULE 1 Capsule ORAL TWICE DAILY Comments: Last Taken: 12/04/17 Time: 9:00 AM Sertraline HCl (Sertraline HCl) 100 MG TABLET 1.5 Tablet ORAL DAILY Comments: Last Taken: 12/04/17 Time: 9:00 AM Mirabegron (Myrbetriq) 50 MG TAB.ER.24H 1 Tablet ORAL TAKE AT BEDTIME Comments: Last Taken: 12/03/17 Time: 9:00 PM Dicyclomine Hydrochloride (Bentyl) 10 MG CAPSULE 1 Capsule ORAL THREE TIMES DAILY Comments: NOT GIVEN IN HOSPITAL Methylcellulose (With Sugar) (Citrucel Powder) 850 GM POWDER 2 Gram ORAL THREE TIMES DAILY as needed for GI Comments: NOT GIVEN IN HOSPITAL Polyethylene Glycol 3350 (Miralax) 17 GRAM POWD.PACK 1 Packet ORAL DAILY as needed for GI Instructions: dissolve in water Comments: Last Taken: 12/04/17 Time: 9:00 AM diphenhydrAMINE HCl (Benadryl) 25 MG CAPSULE 1 Capsule ORAL Q6H as needed for ITCHINESS Comments: NOT GIVEN IN HOSPITAL Loperamide HCl (Loperamide) 2 MG CAPSULE 2 Capsule ORAL Q4H as needed for LOOSE STOOLS Comments: NOT GIVEN IN HOSPITAL Difluprednate (Durezol) 0.05 % DROPS 1 Drop Both Eyes 4XDAILY Comments: NOT GIVEN IN HOSPITAL Calcium Carbonate (TUMS) 200 MG CALCIUM (500 MG) TAB.CHEW 1 Tablet ORAL THREE TIMES DAILY Comments: Last Taken: 12/04/17 Time: 9:00 AM Quetiapine Fumarate (Quetiapine Fumarate) 25 MG TABLET 1 Tablet ORAL TAKE AT BEDTIME Qty = 13 Comments: Last Taken: 12/03/17 Time: 9:00 PM Cyclosporine (Restasis) 0.05 % DROPERETTE 1 Drop Both Eyes TWICE DAILY Qty = 30 Comments: NOT GIVEN IN HOSPITAL Pregabalin (Lyrica) 25 MG CAPSULE 1 Capsule ORAL THREE TIMES DAILY Qty = 39 Comments: Last Taken: 12/04/17 Time: 9:00 AM Apixaban (Eliquis) 2.5 MG TABLET 1 Tablet ORAL TWICE DAILY Qty = 28 Comments: Last Taken: 12/04/17 Time: 9:00 AM Start taking the following new medications: Acetaminophen (Tylenol Extra Strength) 500 MG TABLET 2 Tablet ORAL EVERY 8 HOURS NEEDED as needed for Moderate Pain (4-6) Qty = 20 No Refills Oxycodone HCl/Acetaminophen (Percocet 5-325 MG Tablet) 5 MG-325 MG TABLET 1 Tablet ORAL EVERY SIX HOURS NEEDED as needed for Severe Pain (7-10) Qty = 10 No Refills Copies To: Ness PAULSON,Serenity; Suman PAULSON,Lorna; Juan M PAULSON,Parmjit Sauer Attending MD Review Statement Documenting Attending: Scott PAULSON,Nellie Chavez MD,Nellie Lucas
[2017-12-09 15:37] VITALS: BP 102/58
--- NOTE | 2017-12-09 15:39 | Patient Discharge Instructions ---
Discharge Instructions General Discharge Information You were seen/treated for: FALL PERIPROSTHETIC FRACTURE (FRACTURE AROUND PROSTHESIS) Special Instructions: 1. FOLLOW UP WITH PCP IN ONE WEEK 2. FOLLOW UP WITH DR. ERNIE DUTTON IN ONE WEEK 3. Please follow up with Modeling Analyst as outpatient Diet Continue normal diet: Yes Activity Full Activity/No Limits: No Activity Self Limited: Yes Activity Limited to: Walking with Assistance Other activity limits: protected weight bearing to tolerance, posterior hip precautions, and no active abduction of the hip. Acute Coronary Syndrome Inclusion Criteria At DC or during hospital stay patient has or had the following: ACS DIAGNOSIS No Discharge Core Measures Meds if any: Prescribed or Continued at Discharge Meds if any: NOT Prescribed or Continued at Discharge Congestive Heart Failure Inclusion Criteria At DC or during hospital stay patient has or had the following: CHF DIAGNOSIS No Discharge Core Measures Meds if any: Prescribed or Continued at Discharge Meds if any: NOT Prescribed or Continued at Discharge Cerebrovascular accident Inclusion Criteria At DC or during hospital stay patient has or had the following: CVA/TIA Diagnosis No Discharge Core Measures Meds if any: Prescribed or Continued at Discharge Meds if any: NOT Prescribed or Continued at Discharge Venous thromboembolism Inclusion Criteria VTE Diagnosis No VTE Type NONE VTE Confirmed by (Test) NONE Discharge Core Measures - Per Current guidelines, there needs to be overlap - treatment for the first 5 days of Warfarin therapy. - If discharged on Warfarin prior to 5 days of - overlap therapy, the patient will need to be - assessed for post discharge needs including - *Post discharge parental anticoagulation - *Warfarin and/or parental anticoagulation education - *Follow up date to check INR post discharge At least 5 days overlap therapy as Inpatient No Meds if any: Prescribed or Continued at Discharge Note: Overlap Therapy is Warfarin and Anticoagulant Meds if any: NOT Prescribed or Continued at Discharge
[2017-12-09 22:39] VITALS: BP 128/68
[2017-12-10 06:48] VITALS: BP 146/74
[2017-12-10 08:44] LABS: ABSOLUTE BASOPHIL COUNT 0 /CUMM (0.0-0.2); ABSOLUTE EOSINOPHIL COUNT 0.4 /CUMM (0.0-0.7); ABSOLUTE GRANULOCYTE CT 7.7 /CUMM (1.4-6.5); ABSOLUTE LYMPH COUNT 1.9 /CUMM (1.2-3.4); ABSOLUTE MONOCYTE COUNT 0.5 /CUMM (0.10-0.60); BASOPHIL % 0.1 % (0.0-2.0); EOSINOPHIL % 3.5 % (0-5); GRANULOCYTE % 73.4 % (42.2-75.2); HEMATOCRIT 26.3 % (37-47); MEAN CORPUSCULAR HGB 22.2 PG (27.0-31.0); MEAN CORPUSCULAR HGB CONC 31.3 G/DL (33.0-37.0); MEAN CORPUSCULAR VOLUME 70.9 FL (81.0-99.0); MEAN PLATELET VOLUME 7.6 FL (7.4-10.4); PLATELET COUNT 436 /CUMM (130-400); RED BLOOD CELL CT 3.71 /CUMM (4.20-5.40); WHITE BLOOD CELL COUNT 10.5 /CUMM (4.8-10.8)
--- NOTE | 2017-12-10 09:10 | PN- Housestaff ---
Felipa Celis Andrews Lupillo 12/10/17 0909: Subjective Follow-up For: fall periprosthesis fracture delirium Subjective: 05/16 after percocet. Resting after breakfast. Review of Systems Constitutional: Reports: see HPI. Objective Last 24 Hrs of Vital Signs/I&O Vital Signs Date Time Temp Pulse Resp B/P B/P Pulse O2 O2 Flow FiO2 Mean Ox Delivery Rate 12/10 0648 99.0 69 20 146/74 95 12/09 2239 99.5 68 19 128/68 96 Room Air 12/09 1537 98.8 68 18 102/58 93 Intake & Output 12/10 1600 12/10 0800 12/10 0000 Intake Total 60 120 Output Total 400 250 Balance -340 -130 Intake, Oral 60 120 Output, Urine 400 250 Physical Exam General Appearance: Alert, Oriented X3, Cooperative, No Acute Distress Cardiovascular: Regular Rate Lungs: Clear to Auscultation, Normal Air Movement Abdomen: Normal Bowel Sounds, Soft, No Tenderness Extremities: No Edema, Normal Pulses, clamin pain at knee Current Medications: Current Medications Sig/Danyell Start time Last Medication Dose Route Stop Time Status Admin Acetaminophen 1,000 MG Q6P PRN 12/09 1200 AC N/A 1 UNIT IV Alprazolam 0.5 MG Q6H PRN 12/09 0215 AC PO 12/16 0214 Apixaban 2.5 MG BID 12/09 1000 AC 12/10 PO 0900 Aspirin Buffered 81 MG DAILY 12/09 1738 AC 12/10 PO 0900 Calcium Carbonate 250 MG TID 12/09 1738 AC 12/09 PO 1959 Cholecalciferol 400 IU DAILY 12/09 1739 AC 12/10 PO 0900 Cyclosporine 1 GTT BID 12/09 1000 AC 12/10 OPH 0900 Dextrose/Sodium 1,000 ML .[id number] 12/09 0200 DC 12/09 Chloride IV 0409 Ibuprofen 600 MG Q6P PRN 12/09 0200 DC PO Lamotrigine 100 MG AT BEDTIME 12/09 0230 AC 12/09 PO 2220 Loperamide HCl 4 MG Q4H PRN 12/09 1745 AC PO Mirabegron 50 MG AT BEDTIME 12/09 2200 AC 12/09 PO 2221 Morphine Sulfate 2 MG Q6P PRN 12/09 1200 AC IV Morphine Sulfate 2 MG Q4P PRN 12/09 0200 DC IV Oxycodone/ 1 TAB Q6P PRN 12/09 0200 AC 12/10 Acetaminophen PO 0900 Pregabalin 25 MG TID 12/09 1000 AC 12/10 PO 0858 Quetiapine Fumarate 25 MG AT BEDTIME 12/09 2200 AC 12/09 PO 2220 Senna/Docusate Sodium 1 TAB AT BEDTIME 12/09 2200 AC 12/09 PO 2220 Sertraline HCl 150 MG DAILY 12/09 1000 AC 12/10 PO 0900 Last 24 Hrs of Lab/Ryan Results Last 24 Hrs of Labs/Mics: Laboratory Tests 12/10/17 0710: Anion Gap 11, Estimated GFR > 60, BUN/Creatinine Ratio 20.0, CBC w Diff Pending, WBC Pending, RBC Pending, Hgb Pending, Hct Pending, MCV Pending, MCH Pending, MCHC Pending, RDW Pending, Plt Count Pending, MPV Pending Assessment/Plan Assessment: 77-year-old F with a pmhx of CVA with R hemiparesis, htn, hld, TEJINDER, insomnia, GERD, osteoarthritis, anxiety, bipolar disaese, depression presenting from [facility] and recently discharged 12/04/17 s/p R ORIF for a fall found to have a repeat R hip fracture. #R hip fracture s/p previous ORIF -VSS -Hemoglobin 8.3 on latest lab- baseline -WBC 10.5 on latest lab -head ct: No acute intracranial abnormality -pelvis ct: There is a periprosthetic fracture that extends along the right lateral aspect of the proximal femur, adjacent the arthroplasty, extending superiorly to involve the right greater trochanter. -Patient is now on regular diet tolerating. as per Dr. Arzola, ortho, conservative management including painkillers and weightbearing protected to tolerance with avoidance of hip abduction. -We will restart patient's 2.5 BID eliquis that she was put on after her last hip surgery with dr. granado -Pain pathway with ofirmev percocet morphine 2mg q6h -According to PT, patient self limited her involvement in PT at her facility as she was nervous to move too much -Patient has bedoya in secondary to pain and not being able to use the toilet or bedpan #chronic microcytic anemia -continue to monitor -consider R hip u/s if h/h drops and concerned for hematoma -type and cross match for potential need for transfusion -guaic was negative during last admission -iron tests show low iron and TIBC with normal ferritin and low MCV - microcytic anemia secondary to iron deficiency or bleed #delirium -patient had post op delirium and fever worked up last time. Appeared AO x3 this AM. -we will continue to monitor -metabolic reasons were ruled out as was seizure and NPH (Dr. Art saw the patient). Possibly polypharmacy as per Psych with recommendation to follow up with her psych doctor outpatient. #constipation -senna #mental health -cont seroquel, sertraline, lamotrigene, alprazolam #overactive bladder -cont mirabegron #chronic pain -cont lyrica #dry eyes -cont cyclosporine #FULL CODE #DVT prophyalxis Eliquis #Regular diet Problem List: 1. Periprosthetic fracture around internal prosthetic hip joint 2. Delirium Pain Ratin Pain Location: Surgical site Pain Goal: Pain 4 or less Pain Plan: see AP Tomorrow's Labs & Rationales: CBC Consulting Request: Consulting Specialty: Orthopedics Consulting Physician: Reason for Consult: Periprosthetic fracuture Scott PAULSON,Nellie 12/10/17 1458: Attending MD Review Statement Attending Statement Attending MD Statement: examined this patient, discuss w/resident/PA/RETAIL AREA MANAGER, agreed w/resident/PA/RETAIL AREA MANAGER, reviewed EMR data (avail), discussed with nursing, reviewed images Attending Assessment/Plan: She participated with physical therapy. She remains in some mild pain and is agreeable for the urinary catheter to come out today. She has had frequent falls, had recent hip surgery and now has a periprosthetic fracture that is being managed nonoperatively. Her crit is stable on aspirin and Eliquis. She is in observation status and if she is stable then likely send her back to [facility] in a.m.
[2017-12-10 14:43] VITALS: BP 112/58
[2017-12-10 22:51] VITALS: BP 128/62
--- NOTE | 2017-12-11 00:05 | RADIOLOGY REPORT ---
EXAMINATION: 1. Pelvis. 2. Right hip. CLINICAL INFORMATION: Right hip pain. Fall. COMPARISON: Right hip 12/02/2017. 11/26/2017 TECHNIQUE: 1. Pelvis. Single view 2. Right hip. Cone-down AP oblique view FINDINGS: 1. Pelvis. Status post right hip replacement. Orthopedic components in position. Left hip is normal. No fracture or pelvis. Neural stimulator probe present over the right side of the sacrum with the generator over the right iliac crest. 2. Right hip. Status post right hip replacement. Orthopedic components in position. No dislocation. Surgical skin clips along the right lateral side of the hip. IMPRESSION: Status post right hip replacement.
--- NOTE | 2017-12-11 00:07 | RADIOLOGY REPORT ---
EXAMINATION: Right knee CLINICAL INFORMATION: Fall. COMPARISON: Right knee 08/19/2017 TECHNIQUE: 4 views. FINDINGS: No fracture. No dislocation. No joint effusion. There is degenerative joint disease. There is joint space narrowing of the femoral tibial joint, most significant at the medial femoral tibial compartment. Minor subchondral sclerosis and irregularity of the cortex of the femoral condyle at this compartment. Minimal spur of the patella superiorly at the patellofemoral joint. Compared to the prior study of 08/19/2017 there has been no change. IMPRESSION: 1. No acute abnormality. 2. Tricompartment degenerative change of the knee.
[2017-12-11 06:52] VITALS: BP 132/70
[2017-12-11] MEDS ORDERED: PERCOCET 5-3251 EACH PO (09:53)
[2017-12-11] MEDS ORDERED: TYLENOL EXTRA500 M2 PO (09:53)
--- NOTE | 2017-12-11 12:57 | PN- Att Addend ---
Attending Addendum Attending Brief Note Patient seen and examined. In addition I had a long conversation with patient's son Rufus and his . Patient is intermittently confused although better today. She is afebrile, vitals are stable, lungs are clear to auscultation, heart is S1-S2 regular and abdomen is soft. Her hemoglobin stayed stable at 8. She is a 77-year-old with a past medical history of recent fall and hip surgery who fell again at [facility] and had a periprosthetic fracture. At this point we are pursuing nonoperative treatment with weight bearing as recommended by orthopedics. I talked to the family at length and explained that I'm worried that polypharmacy is contributing to her delirium and her falls. She has bipolar disorder, needs her psychiatric medications but given that she had multiple falls in 2016 and that this fall is after the hip surgery with the recent postop course recently having prolonged delirium, I think she would benefit from an outpatient geriatric evaluation. They also understand that she is on Eliquis for clot prevention but she is very high bleeding risk given her falls and her chronic anemia. They understand all of the issues and understand that she is extremely fragile and delicate. The plan right now is to send her back to [facility] with close outpatient follow up. Total time spent coordinating discharge was 33 minutes.
[2017-12-11 15:50] VITALS: BP 100/52
[2017-12-11 21:11] VITALS: BP 110/58
[2017-12-12 06:37] VITALS: BP 142/86
--- NOTE | 2017-12-12 08:20 | PN- Housestaff ---
Dutch PAULSON,Janet 12/12/17 0820: Subjective Follow-up For: fall periprosthesis fracture delirium Subjective: Patient notes same hip pain as yesterday. She has not had a bowel movement in some time. she notes some pain in her rlq. Review of Systems Constitutional: Reports: weakness. Cardiovascular: Reports: no symptoms. Respiratory: Reports: no symptoms. Gastrointestinal: Reports: abdominal pain. Musculoskeletal: Reports: joint pain, muscle pain. Skin: Reports: no symptoms. Objective Last 24 Hrs of Vital Signs/I&O Vital Signs Date Time Temp Pulse Resp B/P B/P Pulse O2 O2 Flow FiO2 Mean Ox Delivery Rate 12/12 06 98.6 73 20 142/86 95 12/11 2244 99.0 12/11 2111 100.3 78 20 110/58 94 Room Air 12/11 1550 98.6 70 20 100/52 93 Room Air Physical Exam General Appearance: Alert, Cooperative, No Acute Distress Skin: No Rashes, No Breakdown, No Significant Lesion Cardiovascular: Regular Rate Abdomen: Normal Bowel Sounds, Soft, No Hepatospenomegaly, rlq tenderness Extremities: No Clubbing, No Cyanosis, No Edema, Normal Pulses, No Tenderness/ Swelling Current Medications: Current Medications Sig/Danyell Start time Last Medication Dose Route Stop Time Status Admin Acetaminophen 325 MG ONCE ONE 12/11 2215 DC PO 12/11 2216 Acetaminophen 1,000 MG Q6P PRN 12/09 1200 AC N/A 1 UNIT IV Alprazolam 0.5 MG Q6H PRN 12/09 0215 AC PO 12/16 0214 Apixaban 2.5 MG BID 12/09 1000 AC 12/11 PO 2142 Aspirin Buffered 81 MG DAILY 12/09 1738 AC 12/11 PO 0928 Bisacodyl 10 MG ONCE ONE 12/12 0800 CAN KS 12/12 0801 Bisacodyl 5 MG ONE ONE 12/11 1130 DC 12/11 PO 12/11 1131 1210 Calcium Carbonate 250 MG TID 12/09 1738 AC 12/11 PO 2140 Cholecalciferol 400 IU DAILY 12/09 1739 AC 12/11 PO 0928 Cyclosporine 1 GTT BID 12/09 1000 AC 12/11 OPH 2145 Docusate Sodium 100 MG DAILY NEEDED PRN 12/10 1930 AC PO Lamotrigine 100 MG AT BEDTIME 12/09 0230 AC 12/11 PO 214 Loperamide HCl 4 MG Q4H PRN 12/09 1745 AC PO Magnesium Hydroxide 30 ML ONE ONE 12/11 1200 DC 12/11 PO 12/11 1201 1211 Mirabegron 50 MG AT BEDTIME 12/09 2200 AC 12/11 PO 214 Morphine Sulfate 2 MG Q6P PRN 12/09 1200 DC IV Oxycodone/ 1 TAB Q6P PRN 12/09 0200 DC 12/11 Acetaminophen PO 214 Polyethylene Glycol 17 GM DAILY 12/10 1925 AC 12/11 PO 0928 Pregabalin 25 MG TID 12/09 1000 AC 12/11 PO 214 Quetiapine Fumarate 25 MG AT BEDTIME 12/09 2200 AC 12/11 PO 214 Senna/Docusate Sodium 1 TAB AT BEDTIME 12/09 2200 AC 12/11 PO 214 Sertraline HCl 150 MG DAILY 12/09 1000 AC 12/11 PO 0928 Sodium Phosphate 1 UNIT ONCE ONE 12/12 0800 DC KS 12/12 0801 Assessment/Plan Assessment: 77-year-old F with a pmhx of CVA with R hemiparesis, htn, hld, TEJINDER, insomnia, GERD, osteoarthritis, anxiety, bipolar disaese, depression presenting from [facility] and recently discharged 12/04/17 s/p R ORIF for a fall found to have a repeat R hip fracture. #R hip fracture s/p previous ORIF -VSS -Hemoglobin 8.3 on latest lab- baseline -WBC 10.5 on latest lab -head ct: No acute intracranial abnormality -pelvis ct: There is a periprosthetic fracture that extends along the right lateral aspect of the proximal femur, adjacent the arthroplasty, extending superiorly to involve the right greater trochanter. -Patient is now on regular diet tolerating. as per Dr. Arzola, ortho, conservative management including painkillers and weightbearing protected to tolerance with avoidance of hip abduction. -We will cnt patient's 2.5 BID eliquis that she was put on after her last hip surgery with dr. granado -Pain pathway with ofirmev percocet morphine 2mg q6h -According to PT, patient self limited her involvement in PT at her facility as she was nervous to move too much -Patient had bedoya secondary to pain and not being able to use the toilet or bedpan but this has been DC'd #chronic microcytic anemia -patient went down to 6.6 during her last stay a couple weeks back and had to be transfused. -continue to monitor -consider R hip u/s if h/h drops and concerned for hematoma -type and cross match done if transfusion needed -guaic was negative during last admission -iron tests show low iron and TIBC with normal ferritin and low MCV - microcytic anemia secondary to iron deficiency or bleed #delirium -patient had post op delirium and fever worked up last time. -we will continue to monitor -metabolic reasons were ruled out as was seizure and NPH (Dr. Art saw the patient). Possibly polypharmacy as per Psych with recommendation to follow up with her psych doctor outpatient. -patient had an episode of delirium reported by nurse on tuesday. no other episodes over weekend. patient appropriate this morning. -we will stop xanax as a possible cause of delirium (polypharmacy). Patient will be instructed to follow with her psych providers ([facility]) . Her polypharmacy may be contributing to her falls. #constipation -senna, miralax, colace havent worked -FLEET enema ordered as patient cannot leave until bowel movement. She successfuly moved her bowels as of this morning 10am. #mental health -cont seroquel, sertraline, lamotrigine, alprazolam STOPPED #overactive bladder -cont mirabegron #chronic pain -cont lyrica #dry eyes -cont cyclosporine #FULL CODE #DVT prophyalxis Eliquis #Regular diet Problem List: 1. Periprosthetic fracture around internal prosthetic hip joint 2. Fall Pain Ratin Pain Location: right hip Pain Goal: Pain 4 or less Pain Plan: tylenol, percocet, morphine Tomorrow's Labs & Rationales: none Consulting Request: Consulting Specialty: Orthopedics Consulting Physician: Reason for Consult: Periprosthetic fracuture Rachel Escamilla 12/12/17 1451: Attending Review Statement Attending Statement Attending MD Statement: examined this patient, discuss w/resident/PA/FOOD BEVERAGE SERVER, agreed w/resident/PA/FOOD BEVERAGE SERVER, discussed with family, reviewed EMR data (avail), discussed with nursing, discussed with case mgmt, reviewed images, amended to note Attending Assessment/Plan: Patient denies any new complaints, for discharge today. Medically stable with vitals stable.
[2017-12-12 12:02] VITALS: BP 142/86
== END 2017-12-12 12:18 ==
LOC: ERH 20:46 → ERHI 12-09 00:19 → 2NB 12-09 00:19 → ERHI 12-09 00:19 → ENRESERV 12-09 02:10 → 2NB 12-09 03:47 → ENPENDDIS 12-11 10:53 → 2NB 12-12 09:35
PROVIDERS: Physician Assistant Medical; Student in an Organized Health Care Education/Training Program
DX: M97.01XA Periprosthetic fracture around internal prosthetic right hip joint, initial encounter (principal); K59.00 Constipation, unspecified; R41.0 Disorientation, unspecified; Z91.81 History of falling; D72.829 Elevated white blood cell count, unspecified; E87.1 Hypo-osmolality and hyponatremia; E86.0 Dehydration; Z79.82 Long term (current) use of aspirin; W18.30XA Fall on same level, unspecified, initial encounter; Y93.89 Activity, other specified; Y92.012 Bathroom of single-family (private) house as the place of occurrence of the external cause; S00.93XA Contusion of unspecified part of head, initial encounter; G89.29 Other chronic pain; D64.9 Anemia, unspecified; I69.351 Hemiplegia and hemiparesis following cerebral infarction affecting right dominant side; E78.5 Hyperlipidemia, unspecified; G47.33 Obstructive sleep apnea (adult) (pediatric); G47.00 Insomnia, unspecified; F32.9 Major depressive disorder, single episode, unspecified; M19.90 Unspecified osteoarthritis, unspecified site; F41.9 Anxiety disorder, unspecified; F31.9 Bipolar disorder, unspecified; K21.9 Gastro-esophageal reflux disease without esophagitis; Z79.01 Long term (current) use of anticoagulants
CPT/HCPCS: 36415; 72170; 73502-RT; 73562-RT; 82436; 87086; 87804; 87804-59; 93005; 93010; 96374; 97116-GO; 97116-GP; 97530-GO; 97530-GP; G8978-GP; G8979-GP; J0131

== ENCOUNTER 2018-02-23 07:06 | Emergency (ER) | payer OTHER, MEDICARE ==
[~2018-02-23] VITALS: Ht 160 cm; Wt 90.7 kg
[~2018-02-23 07:06] MED LIST changes: +PERCOCET 5-3251 EACH PO; +TAMIFLU75 M1 PO; +TYLENOL EXTRA500 M2 PO
--- NOTE | 2018-02-23 09:14 | ED GI/GU/ABDOMINAL COMPLAINT ---
History of Present Illness General Chief Complaint: Abdominal Pain/Flank Pain Stated Complaint: BIBA ABDOMINAL PAIN OFF AND ON X FEW MONTHS Source: patient, old records Exam Limitations: no limitations Vital Signs & Intake/Output Vital Signs & Intake/Output Vital Signs Date Time Temp Pulse Resp B/P B/P Pulse O2 O2 Flow FiO2 Mean Ox Delivery Rate 02/23 1516 98.4 74 16 127/56 97 Room Air 02/23 1457 98.7 02/23 1140 98.7 68 18 145/76 99 Room Air 02/23 0811 96.9 02/23 0723 96.9 68 18 145/76 96 Room Air Room Air Allergies Coded Allergies: STATINS (UNKNOWN 06/05/14) cetirizine ([facility]) (UNKNOWN 07/09/16) nut - unspecified (ITCHING 07/09/16) Reconcile Medications Acetaminophen (Tylenol) 325 MG TABLET 2 TAB PO Q6H PRN PAIN (Reported) Acetaminophen (Tylenol Extra Strength) 500 MG TABLET 2 TAB PO Q8P PRN Moderate Pain (4-6) Apixaban (Eliquis) 2.5 MG TABLET 1 TAB PO BID ANTICOAGULANT Aspirin (Ecotrin*) 81 MG TABLET.DR 1 TAB PO DAILY HEART/BLOOD (Reported) Calcium Carbonate (TUMS) 200 MG CALCIUM (500 MG) TAB.CHEW 1 TAB PO TID GI ( Reported) Cholecalciferol (Vitamin D3) 1,000 UNIT TABLET 1 TAB PO DAILY SUPPLEMENT ( Reported) Cyclosporine (Restasis) 0.05 % DROPERETTE 1 GTT OU BID BOTH EYES (Reported) Dicyclomine Hydrochloride (Bentyl) 10 MG CAPSULE 1 CAP PO TID GI (Reported) Difluprednate (Durezol) 0.05 % DROPS 1 GTT OU 4XDAILY BOTH EYES (Reported) diphenhydrAMINE HCl (Benadryl) 25 MG CAPSULE 1 CAP PO Q6H PRN ITCHINESS ( Reported) Docusate Sodium (Colace) 100 MG CAPSULE 1 CAP PO BID STOOL SOFTENER (Reported ) Lamotrigine (Lamictal) 100 MG TABLET 1 TAB PO QHS NERVE PAIN (Reported) Loperamide HCl (Loperamide) 2 MG CAPSULE 2 CAP PO Q4H PRN LOOSE STOOLS ( Reported) Loratadine (Claritin) 10 MG TABLET 1 TAB PO DAILY ALLERGIES (Reported) Melatonin 3 MG TABLET 1 TAB PO QHS SLEEP (Reported) Methylcellulose (With Sugar) (Citrucel Powder) 850 GM POWDER 2 GM PO TID PRN GI (Reported) Mirabegron (Myrbetriq) 50 MG TAB.ER.24H 1 TAB PO QHS BLADDER (Reported) Oxycodone HCl/Acetaminophen (Percocet 5-325 MG Tablet) 5 MG-325 MG TABLET 1 TAB PO Q6P PRN Severe Pain (7-10) Phenazopyridine HCl (Pyridium) 200 MG TABLET 1 TAB PO TID spasms Polyethylene Glycol 3350 (Miralax) 17 GRAM POWD.PACK 1 PAC PO DAILY PRN GI ( Reported) dissolve in water Pregabalin (Lyrica) 25 MG CAPSULE 1 CAP PO TID NERVE PAIN (Reported) Quetiapine Fumarate 25 MG TABLET 1 TAB PO QHS MENTAL HEALTH (Reported) Sertraline HCl 100 MG TABLET 1.5 TAB PO DAILY MENTAL HEALTH (Reported) Sulfamethoxazole/Trimethoprim (Bactrim Ds Tablet) 800 MG-160 MG TABLET 1 TAB PO BID uti Triage Note: BIBA FROM [facility] WITH C/O LOW ABD PAIN, SINCE LAST NIGHT, PT DENIES N/V/D. DENIES FEVERS AT HOME "I SUFFER FROM CHRONIC CONSTIPATION". LAST NORMAL BM YESTERDAY. Triage Nurses Notes Reviewed? yes ? n Is pt currently ? No Onset: Abrupt Duration: hour(s):, constant, getting worse Quality/Severity: moderate, sharpness (heart), severe (allergies), throbbing ( Pain), nawing constant pain Location: lower abd Radiation: no radiation Activities at Onset: sleep HPI: 77-year-old female comes into the emergency room with complaints of sudden onset lower abdominal pain. She reports that she was sleeping. The pain got progressively worse with time. She denies any fever chills vomiting. She reports that she has intermittent blood in her stool but none recently. Denies any chest pain shortness of breath. She admits to having a complete hysterectomy and a bladder tube placed due to previous kidney stones. She also had a cholecystectomy. (Garth Toure) Past History Travel History Traveled to [place] past 21 day No Medical History Any Pertinent Medical History? see below for history Neurological: CVA ( right weakness) EENT: cataracts Cardiovascular: hypertension, hyperlipidemia Respiratory: obstructive sleep apnea, INSOMNIA Gastrointestinal: GERD Hepatic: NONE Renal: UTI INCONTINENCE Musculoskeletal: falls, osteoarthritis Psychiatric: anxiety, bipolar disease, depression Endocrine: NONE Blood Disorders: NONE Cancer(s): NONE CIVIL ENGINEERING MANAGER/Reproductive: NONE History of MRSA: No History of VRE: No History of CDIFF: No Influenza Vaccine: 10/07/17 Surgical History Surgical History: cholecystectomy, hysterectomy, tonsillectomy right hip hemiarthroplasty 11/27/17, richo Psychosocial History Who do you live with Patient/Self What is your primary language Azeri Tobacco Use: Never used ETOH Use: denies use Illicit Drug Use: denies illicit drug use Family History Hx Contributory? No (Garth Toure) Review of Systems Review of Systems Constitutional: Reports: see HPI. EENTM: Reports: no symptoms. Respiratory: Reports: no symptoms. Cardiovascular: Reports: no symptoms. GI: Reports: see HPI. Genitourinary: Reports: see HPI. Musculoskeletal: Reports: no symptoms. Skin: Reports: no symptoms. Neurological/Psychological: Reports: no symptoms. Hematologic/Endocrine: Reports: no symptoms. Immunologic/Allergic: Reports: no symptoms. All Other Systems: Reviewed and Negative (Garth Toure) Physical Exam Physical Exam General Appearance: well developed/nourished, alert, awake Head: atraumatic Eyes: Bilateral: normal appearance. Ears, Nose, Throat, Mouth: hearing grossly normal, moist mucous membrane Neck: normal inspection Respiratory: no respiratory distress Cardiovascular: regular rate/rhythm Gastrointestinal: soft Back: normal inspection Extremities: normal range of motion Neurologic/Psych: awake, alert, oriented x 3, normal gait Skin: intact, normal color Core Measures ACS in differential dx? No Sepsis Present: No Sepsis Focused Exam Completed? No (Garth Toure) Progress Differential Diagnosis: appendicitis, biliary colic, bowel obstruction, cholecystitis, diverticulitis, gastritis, ischemic bowel, inflamm bowel dis, kidney stone, Chandrika-Shanita tear, ovarian cyst, ovarian torsion, pancreatitis, PID/cervicitis, peptic ulcer, PUD/GERD, UTI/pyelo Plan of Care: Orders Procedure Date/time Status Regular Diet 02/23 D Active Add-on Test (ER Only) 02/23 1232 Active CULTURE,URINE 02/23 0920 Active URINALYSIS 02/23 0914 Complete TROPONIN LEVEL 04/19 0912 Complete LIPASE 02/24 912 Complete LACTIC ACID 02/24 912 Complete COMPREHENSIVE METABOLIC PANEL 02/24 912 Complete CBC WITHOUT DIFFERENTIAL 02/24 912 Complete AMYLASE 02/24 912 Complete EKG 02/24 912 Active Laboratory Tests 02/23/18 1212: Lactic Acid Cancelled 02/23/18 0927: Anion Gap 12, Estimated GFR 54 L, BUN/Creatinine Ratio 21.0, Glucose 98, Lactic Acid 1.0, Calcium 9.4, Total Bilirubin 0.5, AST 17, ALT 22, Alkaline Phosphatase 104, Troponin I < 0.01, Total Protein 6.7, Albumin 3.8, Globulin 2.9, Albumin/ Globulin Ratio 1.3, Amylase 52, Lipase 122, CBC w Diff MAN DIFF ORDERED, RBC 4.70, MCV 67.7 L, MCH 21.2 L, MCHC 31.3 L, RDW 16.8 H, MPV 8.0, Segmented Neutrophils 64, Lymphocytes 25, Monocytes 6, Eosinophils 4, Basophils 1, Platelet Estimate ADEQUATE, Hypochromic-Microcytic 2+, Poikilocytosis 2+, Anisocytosis 1+, Ovalocytes 2+ 02/23/18919: Urine Color YEL, Urine Clarity HAZY H, Urine pH 6.0, Ur Specific [place] 1.020, Urine Protein NEG, Urine Ketones NEG, Urine Nitrite POS H, Urine Bilirubin NEG, Urine Urobilinogen 0.2, Ur Leukocyte Esterase LARGE H, Ur Microscopic SEDIMENT EXAMINED, Urine RBC 5-10 H, Urine WBC 25-50 H, Ur Epithelial Cells FEW, Urine Bacteria MANY H, Urine Hemoglobin TRACE-INTACT, Urine Glucose NEG Microbiology 02/24 920 URINE ROUT: Urine Culture - RECD Diagnostic Imaging: Viewed by Me: CT Scan. Discussed w/RAD: CT Scan. Radiology Impression: PATIENT: DENIZ LOUIS PRESENT AGE: 77 PATIENT ACCOUNT NO: [id number] : 42 LOCATION: [facility] ORDERING PHYSICIAN: Garth EDWARDS SERVICE DATE: 02/23/18 EXAM TYPE: CAT - CT ABD & PELVIS W IV CONTRAST EXAMINATION: CT ABDOMEN AND PELVIS WITH CONTRAST CLINICAL INFORMATION: 77-year-old female with lower abdominal pain. Presumptive diagnoses: Diverticulitis/appendicitis. History of kidney stones(?) COMPARISON: CT of the abdomen and pelvis on 10/23/2017. CT the pelvis on on 11/26/2017 and 12/08/2017. TECHNIQUE: Multidetector volumetric imaging was performed of the abdomen and pelvis following IV administration of 95 mL of Optiray 320 intravenous contrast. Sagittal and coronal reformatted images were obtained on the technologist's workstation. DLP: 593 mGy-cm FINDINGS: Front Office Assistant: The patient has significant thoracolumbar scoliosis. A neural stimulator generator is in place in the right flank and the wire tip is directed toward the sacrum. A right total hip arthroplasty is also seen. The patient's gallbladder has been surgically removed. Internal gas pattern is normal. LUNG BASES: The visualized lung bases are unremarkable. LIVER, GALLBLADDER, AND BILIARY TREE: The liver is normal in size and attenuation. Mild dilatation of the intrahepatic biliary ducts is associated with mild dilatation of the extrahepatic biliary ducts in this 77- year-old post cholecystectomy patient. The common bile duct in the head of the pancreas measures 7 mm. PANCREAS: Unremarkable. SPLEEN: Unremarkable. ADRENAL GLANDS: Unremarkable. KIDNEYS AND URETERS: The kidneys are normal in size, shape , and attenuation. No hydronephrosis, hydroureter, or calculi seen. No perinephric stranding. A tiny cortical cyst is present in the upper pole the left kidney. BLADDER: Mild circumferential thickening of the bladder wall of unknown significance. GASTROINTESTINAL TRACT: The small bowel and stomach are normal. There is diverticulosis of the sigmoid colon without diverticulitis. The appendix is normal. ABDOMINAL WALL: No significant hernia is appreciated. LYMPH NODES: Normal. VASCULAR: Unremarkable. PELVIC VISCERA: The uterus is been removed. OSSEOUS STRUCTURES: A left-sided rib fractures. Severe degenerative disc disease throughout the entire spine. Facet arthritis. IMPRESSION: 1. Normal appendix. 2. No evidence of diverticulitis. DICTATED BY: Mejia Nelson MD DATE/TIME DICTATED:02/23/181107 RETAIL EVENT AND SALES ASSISTANT:DENISHA DATE/TIME TRANSCRIBED:02/23/181107 CONFIDENTIAL, DO NOT COPY WITHOUT APPROPRIATE AUTHORIZATION. <Electronically signed in Other Vendor System> SIGNED BY: Mejia Nelson MD 02/23/18 1141 Initial ED EKG: normal sinus rhythm, rate (64), RBBB Prior EKG: unchanged (Garth Toure) Departure Departure Disposition: HOME OR SELF CARE Condition: Stable Clinical Impression Primary Impression: Abdominal pain Secondary Impressions: Cystitis Referrals: Lorna Will MD (PCP/Family) Additional Instructions: Take Bactrim and peridium as prescribed. Follow-up with PCP. Return if any concerns worsening symptoms. Please go over all results of today's visit with your primary care doctor. Contact your primary care doctor to let them know you were here in the emergency room. There may be nonspecific findings which may not be related to your visit today here in the emergency room but may require further evaluation and chronic monitoring by your primary care doctor. If you had a laceration today the chance of foreign body always remains. You should follow-up with your primary care doctor for recheck in 3-5 days for a wound check. If you had an x-ray done there is a chance that a fracture could have been missed on initial read and you should follow-up with your primary care doctor for repeat x-rays if symptoms persist. If your blood pressure was elevated here in the emergency room please have rechecked by the [facility] primary care doctor within the next 48. If you were prescribed a narcotic here in the emergency room or any type of controlled substances you're not allowed to drive while taking this medication or operate any type of heavy machinery. Narcotics can make you feel lightheaded dizziness nausea and can cause constipation. You may need to picking belt operator a stool softener. Thank you for choosing [facility] emergency room. Please return to the emergency room immediately if you have any other concerns worsening of symptoms. Departure Forms: Customer Survey General Discharge Information Prescriptions: Current Visit Scripts Sulfamethoxazole/Trimethoprim (Bactrim Ds Tablet) 1 TAB PO BID #14 TAB Phenazopyridine HCl (Pyridium) 1 TAB PO TID #9 TAB Comments 02/23/2018 3:24:37 PM Patient clinically looks well. Patient is no apparent distress. Nontoxic appearing. Only clinical finding was uterine tract infection. Patient given dose of IV antibiotics and started on oral antibiotics. Return if any other concerns. Patient understands and agrees with plan of care. Case discussed with Dr. joe. Patient understands and agrees with plan of care. (Garth Toure) PA/BLOOD SPLATTER ANALYST Co-Sign Statement Statement: ED Attending supervision documentation- x I saw and evaluated the patient. I have also reviewed all the pertinent lab results and diagnostic results. I agree with the findings and the plan of care as documented in the PA's/BLOOD SPLATTER ANALYST's documentation. [] I have reviewed the ED Record and agree with the PA's/BLOOD SPLATTER ANALYST's documentation. [] Additions or exceptions (if any) to the PAs/BLOOD SPLATTER ANALYST's note and plan are summarized below: [] (Dino PAULSON,Joshua)
[2018-02-23 09:46] LABS: HEMATOCRIT 31.8 % (37-47); MEAN CORPUSCULAR VOLUME 67.7 FL (81.0-99.0); WHITE BLOOD CELL COUNT 8.2 /CUMM (4.8-10.8)
[2018-02-23 09:48] LABS: MEAN CORPUSCULAR HGB 21.2 PG (27.0-31.0); MEAN CORPUSCULAR HGB CONC 31.3 G/DL (33.0-37.0); PLATELET COUNT 254 /CUMM (130-400); RBC DISTRIBUTION WIDTH 16.8 % (11.5-14.5)
--- NOTE | 2018-02-23 11:41 | CT SCAN REPORT ---
EXAMINATION: CT ABDOMEN AND PELVIS WITH CONTRAST CLINICAL INFORMATION: 77-year-old female with lower abdominal pain. Presumptive diagnoses: Diverticulitis/appendicitis. History of kidney stones(?) COMPARISON: CT of the abdomen and pelvis on 10/23/2017. CT the pelvis on on 11/26/2017 and 12/08/2017. TECHNIQUE: Multidetector volumetric imaging was performed of the abdomen and pelvis following IV administration of 95 mL of Optiray 320 intravenous contrast. Sagittal and coronal reformatted images were obtained on the technologist's workstation. DLP: 593 mGy-cm FINDINGS: Ticker Installer: The patient has significant thoracolumbar scoliosis. A neural stimulator generator is in place in the right flank and the wire tip is directed toward the sacrum. A right total hip arthroplasty is also seen. The patient's gallbladder has been surgically removed. Internal gas pattern is normal. LUNG BASES: The visualized lung bases are unremarkable. LIVER, GALLBLADDER, AND BILIARY TREE: The liver is normal in size and attenuation. Mild dilatation of the intrahepatic biliary ducts is associated with mild dilatation of the extrahepatic biliary ducts in this 77-year-old post cholecystectomy patient. The common bile duct in the head of the pancreas measures 7 mm. PANCREAS: Unremarkable. SPLEEN: Unremarkable. ADRENAL GLANDS: Unremarkable. KIDNEYS AND URETERS: The kidneys are normal in size, shape, and attenuation. No hydronephrosis, hydroureter, or calculi seen. No perinephric stranding. A tiny cortical cyst is present in the upper pole the left kidney. BLADDER: Mild circumferential thickening of the bladder wall of unknown significance. GASTROINTESTINAL TRACT: The small bowel and stomach are normal. There is diverticulosis of the sigmoid colon without diverticulitis. The appendix is normal. ABDOMINAL WALL: No significant hernia is appreciated. LYMPH NODES: Normal. VASCULAR: Unremarkable. PELVIC VISCERA: The uterus is been removed. OSSEOUS STRUCTURES: A left-sided rib fractures. Severe degenerative disc disease throughout the entire spine. Facet arthritis. IMPRESSION: 1. Normal appendix. 2. No evidence of diverticulitis.
[2018-02-23] MEDS ORDERED: PYRIDIUM200 M1 PO (15:11)
[2018-02-23] MEDS ORDERED: BACTRIM DS TAB1 EACH PO (15:11)
[2018-02-23 15:16] VITALS: BP 127/56
== END 2018-02-23 16:11 ==
LOC: ERH 07:06
PROVIDERS: Physician Assistant Medical
DX: N30.90 Cystitis, unspecified without hematuria (principal); I10 Essential (primary) hypertension; R10.30 Lower abdominal pain, unspecified
CPT/HCPCS: 74177; 81001; 87086; 93005; 93010; 96374; 96375; J0696

== ENCOUNTER 2018-03-06 05:19 | Emergency (ER) | payer OTHER, MEDICARE ==
[~2018-03-06] VITALS: Ht 160 cm; Wt 90.7 kg
[~2018-03-06 05:19] MED LIST changes: +BACTRIM DS TAB1 EACH PO; +PYRIDIUM200 M1 PO
--- NOTE | 2018-03-06 05:22 | ED GI/GU/ABDOMINAL COMPLAINT ---
History of Present Illness General Chief Complaint: General Adult Stated Complaint: BIBA ABD PAIN Source: patient Exam Limitations: no limitations Vital Signs & Intake/Output Vital Signs & Intake/Output Vital Signs Date Time Temp Pulse Resp B/P B/P Pulse O2 O2 Flow FiO2 Mean Ox Delivery Rate 03/06 0825 63 20 117/55 97 Room Air 03/06 0607 93 20 146/67 96 03/06 0549 100 Room Air 03/06 0522 98.0 57 18 124/60 98 Room Air Allergies Coded Allergies: STATINS (UNKNOWN 03/06/18) cetirizine (From ZYRTEC) (UNKNOWN 03/06/18) nut - unspecified (ITCHING 03/06/18) Triage Nurses Notes Reviewed? yes ? N Is pt currently ? No Onset: Gradual Duration: hour(s): Timing: recent history Location: left flank, left upper quadrant Radiation: no radiation Activities at Onset: none Modifying Factors: Worsens With: palpation. Associated Symptoms: abdominal pain HPI: 77 YO WOMAN presents with left sided abdominal pain and tenderness for the past several hours. She notes that last night she had a sharp chest pain that lasted 10 minutes. She notes normal bowel movements, no nausea, vomiting, diarrhea, dysuria. She is otherwise well. (Nahomi PAULSON,Jimenez Sauer) Reconcile Medications Acetaminophen (Tylenol) 325 MG TABLET 2 TAB PO Q6H PRN PAIN (Reported) Apixaban (Eliquis) 2.5 MG TABLET 1 TAB PO BID ANTICOAGULANT Aspirin (Ecotrin*) 81 MG TABLET.DR 1 TAB PO DAILY HEART/BLOOD (Reported) Calcium Carbonate (TUMS) 200 MG CALCIUM (500 MG) TAB.CHEW 1 TAB PO TID GI ( Reported) Cholecalciferol (Vitamin D3) 1,000 UNIT TABLET 1 TAB PO DAILY SUPPLEMENT ( Reported) Cyclosporine (Restasis) 0.05 % DROPERETTE 1 GTT OU BID BOTH EYES (Reported) Docusate Sodium (Colace) 100 MG CAPSULE 1 CAP PO BID STOOL SOFTENER (Reported ) Hyoscyamine (Levsin) 0.125 MG TABLET 1-2 TAB PO Q6P PRN ABDOMINAL CRAMPS Lamotrigine (Lamictal) 100 MG TABLET 1 TAB PO QPM NERVE PAIN (Reported) Loperamide HCl (Loperamide) 2 MG CAPSULE 2 CAP PO Q4H PRN LOOSE STOOLS ( Reported) Melatonin 3 MG TABLET 1 TAB PO QPM SLEEP (Reported) Methylcellulose (With Sugar) (Citrucel Powder) 850 GM POWDER 2 GM PO TID PRN GI (Reported) Mirabegron (Myrbetriq) 50 MG TAB.ER.24H 1 TAB PO QHS BLADDER (Reported) Polyethylene Glycol 3350 (Miralax) 17 GRAM POWD.PACK 1 PAC PO DAILY PRN GI ( Reported) dissolve in water Pregabalin (Lyrica) 25 MG CAPSULE 1 CAP PO BID NEUROPATHY (Reported) Quetiapine Fumarate 25 MG TABLET 1 TAB PO QPM MENTAL HEALTH (Reported) Sertraline HCl 100 MG TABLET 1.5 TAB PO DAILY MENTAL HEALTH (Reported) (Raegan PAULSON,Ji Lo) Past History Medical History Any Pertinent Medical History? see below for history Neurological: CVA ( right weakness) EENT: cataracts Cardiovascular: hypertension, hyperlipidemia Respiratory: obstructive sleep apnea, INSOMNIA Gastrointestinal: GERD Hepatic: NONE Renal: UTI INCONTINENCE Musculoskeletal: falls, osteoarthritis Psychiatric: anxiety, bipolar disease, depression Endocrine: NONE Blood Disorders: NONE Cancer(s): NONE COAL SAMPLER/Reproductive: NONE History of MRSA: No History of VRE: No History of CDIFF: No Influenza Vaccine: 10/07/17 Surgical History Surgical History: cholecystectomy, hysterectomy, tonsillectomy right hip hemiarthroplasty 11/27/17, loy Psychosocial History Who do you live with Patient/Self What is your primary language Venezuelan Family History Hx Contributory? No (Nahomi PAULSON,Jimenez Sauer) Review of Systems Review of Systems Constitutional: Reports: no symptoms. EENTM: Reports: no symptoms. Respiratory: Reports: no symptoms. Cardiovascular: Reports: no symptoms. GI: Reports: no symptoms. Genitourinary: Reports: no symptoms. Musculoskeletal: Reports: no symptoms. Skin: Reports: no symptoms. Neurological/Psychological: Reports: no symptoms. Hematologic/Endocrine: Reports: no symptoms. Immunologic/Allergic: Reports: no symptoms. All Other Systems: Reviewed and Negative (Jimenez Coulter MD) Physical Exam Physical Exam General Appearance: well developed/nourished, mild distress Head: atraumatic, normal appearance Eyes: Bilateral: normal appearance. Ears, Nose, Throat, Mouth: hearing grossly normal, moist mucous membrane Neck: normal inspection, supple, full range of motion Respiratory: normal breath sounds, chest non-tender, no respiratory distress, quiet respiration, lungs clear Cardiovascular: regular rate/rhythm Gastrointestinal: normal bowel sounds, soft, left sided tenderness to palpation Back: normal inspection, normal range of motion Extremities: normal range of motion Neurologic/Psych: no motor/sensory deficits, awake, alert, oriented x 3 Skin: intact, normal color, warm/dry Core Measures ACS in differential dx? No Sepsis Present: No Sepsis Focused Exam Completed? No (Nahomi PAULSON,Jimenez Sauer) Progress Differential Diagnosis: uti vs kidney stone vs diverticulitis vs other. Plan of Care: Orders Procedure Date/time Status TROPONIN LEVEL 03/06 830 Complete EKG 03/06 830 Active URINALYSIS 03/06 633 Complete TROPONIN LEVEL 03/06 521 Complete LIPASE 03/06 521 Complete HEPATIC FUNCTION PANEL 03/06 521 Complete D-DIMER 03/06 521 Complete CBC WITHOUT DIFFERENTIAL 03/06 521 Complete BASIC METABOLIC PANEL 03/06 521 Complete AMYLASE 03/06 521 Complete EKG 03/06 521 Active Laboratory Tests 03/06/18 0822: Troponin I < 0.01, Urine Color STRAW, Urine Clarity CLEAR, Urine pH 6.0, Ur Specific [place] <= 1.005, Urine Protein NEG, Urine Ketones NEG, Urine Nitrite NEG, Urine Bilirubin NEG, Urine Urobilinogen 0.2, Ur Leukocyte Esterase NEG, Ur Microscopic EXAM NOT REQUIRED, Urine Hemoglobin NEG, Urine Glucose NEG 03/06/18 0539: Anion Gap 11, Estimated GFR > 60, BUN/Creatinine Ratio 24.4, Glucose 98, Calcium 9.5, Total Bilirubin 0.3, Direct Bilirubin 0.3, AST 16, ALT 19, Alkaline Phosphatase 110, Troponin I < 0.01, Total Protein 7.0, Albumin 4.1, Amylase 55, Lipase 162, D-Dimer High Sensitivty 454 H, CBC w Diff MAN DIFF ORDERED, RBC 4.81, MCV 67.6 L, MCH 20.6 L, MCHC 30.5 L, RDW 16.6 H, MPV 7.9, Segmented Neutrophils 43, Lymphocytes 45, Monocytes 6, Eosinophils 5, Basophils 1, Platelet Estimate ADEQUATE, Polychromasia 1+, Hypochromic-Microcytic 2+, Poikilocytosis 3+, Basophilic Stippling 1+, Anisocytosis 3+, Microcytic Cells 3+ , Ovalocytes 1+, Stomatocytes FEW, Elliptocytes 1+, Fld Total RBCs Counted 100 Diagnostic Imaging: Viewed by Me: Radiology Read, CT Scan. Discussed w/RAD: Radiology Read, CT Scan. Radiology Impression: PATIENT: DELORES LOUIS PRESENT AGE: 77 PATIENT ACCOUNT NO: [id number] : 42 LOCATION: [facility] ORDERING PHYSICIAN: Jimenez Coulter MD SERVICE DATE: 03/06/18 EXAM TYPE: CAT - CT ABD & PELVIS W/O IV CONTRAS EXAMINATION: CT ABDOMEN AND PELVIS WITHOUT CONTRAST CLINICAL INFORMATION: Lower abdominal pain, question renal colic COMPARISON: 02/23/2018 TECHNIQUE: Multidetector volumetric imaging was performed from the superior aspect of the liver through the pubic symphysis. Sagittal and coronal reformatted images were obtained on the technologist's workstation. DLP: 659.86 mGy-cm FINDINGS: LUNG BASES: The visualized lung bases are unremarkable. LIVER, GALLBLADDER, AND BILIARY TREE: The liver is normal in size, shape, and attenuation. No focal hepatic lesion or biliary ductal dilatation is present. Patient is status post cholecystectomy. PANCREAS: Unremarkable. SPLEEN: Unremarkable. ADRENAL GLANDS: Unremarkable. KIDNEYS AND URETERS: The kidneys are normal in size, shape, and attenuation. No hydronephrosis, hydroureter, or obstructing calculi seen. A tiny cortical calcification is noted in the upper left kidney. No perinephric stranding. BLADDER: Unremarkable. GASTROINTESTINAL TRACT: There is minimal colonic diverticulosis. The small and large bowel are otherwise unremarkable without evidence of obstruction or pericolonic inflammatory change. The appendix is unremarkable. ABDOMINAL WALL: No significant hernia is appreciated. LYMPH NODES: Normal. VASCULAR: There is mild scattered atherosclerotic calcification. PELVIC VISCERA: Patient is status post hysterectomy. OSSEOUS STRUCTURES: There are a few subacute to chronic appearing lower left rib fractures. Degenerative changes are noted in the spine. There is a dextroscoliosis of the lumbar spine. Patient is status post right hip arthroplasty. Generator device is present in the right gluteal subcutaneous tissues, with lead extending to the sacrum. IMPRESSION: No hydronephrosis or ureteral calculus. No acute findings identified in the abdomen/pelvis. DICTATED BY: Alphonse Champion MD DATE/TIME DICTATED:03/06/18615 NEON LIGHT INSTALLER: DENISHA DATE/TIME TRANSCRIBED:03/06/18615 CONFIDENTIAL, DO NOT COPY WITHOUT APPROPRIATE AUTHORIZATION. <Electronically signed in Other Vendor System> SIGNED BY: Alphonse Champion MD 03/06/18628, PATIENT: DELORES LOUIS PRESENT AGE: 77 PATIENT ACCOUNT NO: [id number] : 42 LOCATION: [facility] ORDERING PHYSICIAN: Jimenez Coulter MD SERVICE DATE: 03/06/18 EXAM TYPE: RAD - XRY-PORTABLE CHEST XRAY EXAMINATION : XR PORTABLE CHEST CLINICAL INFORMATION: Chest pain COMPARISON: 11/28/2017 TECHNIQUE: Portable frontal view of the chest was obtained. FINDINGS: The lungs are clear with no focal consolidation. No evidence of pneumothorax, pulmonary edema, or pleural effusions. The cardiac silhouette appears near the upper limits of normal in size. No acute osseous findings are seen. IMPRESSION: No acute cardiopulmonary findings. DICTATED BY: Alphonse Champion MD DATE/TIME DICTATED:03/06/18614 NEON LIGHT INSTALLER:DENISHA DATE/TIME TRANSCRIBED:614 CONFIDENTIAL, DO NOT COPY WITHOUT APPROPRIATE AUTHORIZATION. < Electronically signed in Other Vendor System> SIGNED BY: Alphonse Champion MD 03/06/18619 Initial ED EKG: RBBB, no change from prior. Hand-Off Endorsed To: Ji Carlin MD Endorsed Time: 0700 Pending: CT, labs (Nahomi PAULSON,Jimenez Sauer) Radiology Impression: PATIENT: DELORES LOUIS PRESENT AGE: 77 PATIENT ACCOUNT NO: [id number] : 42 LOCATION: [facility] ORDERING PHYSICIAN: Jimenez Coulter MD SERVICE DATE: 03/06/18 EXAM TYPE: CAT - CTA CHEST-PULMONARY EMBOLISM EXAMINATION: CT ANGIOGRAM OF THE CHEST WITH AND WITHOUT CONTRAST (CT PULMONARY ANGIOGRAM FOR PE) CLINICAL INFORMATION: Chest pain, positive d-dimer COMPARISON: 10/23/2017 TECHNIQUE: Prior to contrast administration, noncontrast localization images were obtained. Subsequently, multidetector volumetric imaging was performed from the thoracic inlet to below the diaphragms following the administration of 82 mL Optiray 320 intravenous contrast. No contrast reaction reported. Sagittal, coronal, and MIP oblique sagittal reformatted images were obtained on the CT workstation, uploaded to PACS, and reviewed. Total exam dose-length product 499.64 mGy-cm. FINDINGS: QUALITY OF STUDY/CONTRAST BOLUS: Satisfactory PULMONARY ARTERIES: No central or segmental pulmonary emboli. THORACIC AORTA: No aneurysm or dissection. There is mild atherosclerotic disease of aorta. LUNG: No focal consolidation, nodules or masses. PLEURA: No pleural effusion or pneumothorax. MEDIASTINUM: There is suggestion of a 1.1 cm posterior right thyroid nodule. No mediastinal lymphadenopathy is seen. There is mild cardiomegaly without pericardial effusion. No evidence of septal bowing or right heart strain. CHEST WALL/AXILLA: No axillary or internal mammary lymphadenopathy. OSSEOUS STRUCTURES: There are a few subacute to chronic appearing lower left rib fractures. Degenerative changes are noted in the spine. UPPER ABDOMEN: Patient is status post cholecystectomy. No reflux of contrast into the hepatic veins to suggest elevated right heart pressures. IMPRESSION: 1. No pulmonary embolus identified. 2. Cardiomegaly. 3. Suggestion of a right thyroid lobe nodule; correlation with ultrasound workup is recommended. VTE: negative DICTATED BY: Alphonse Champion MD DATE/TIME DICTATED :03/06/18649 NEON LIGHT INSTALLER:DENISHA DATE/TIME TRANSCRIBED:03/06/18649 CONFIDENTIAL, DO NOT COPY WITHOUT APPROPRIATE AUTHORIZATION. < Electronically signed in Other Vendor System> SIGNED BY: Alphonse Champion MD 03/06/18 0703 Repeat EKG: unchanged Comments: 02/24/18 7:30 AM Pt signed out to me by dr coulter at shift changeover. 03/06/2018 9:50:27 AM I have updated Delores on her test results. She is requesting medication for her abdominal pain. She will arrange for a ride home via family. I have asked that she follow up with her primary care physician for further testing as the cause of her symptoms is unclear at this time. (Raegan PAULSON,Ji Lo) Departure Departure Condition: Stable Referrals: Lorna Will MD (PCP/Family) Departure Forms: Customer Survey General Discharge Information (Nahomi PAULSON,Jimenez Sauer) Departure Disposition: HOME OR SELF CARE Clinical Impression Primary Impression: Abdominal pain Qualifiers: Abdominal location: lower abdomen, unspecified Qualified Code: R10.30 - Lower abdominal pain, unspecified Secondary Impressions: Anemia Qualifiers: Anemia type: unspecified type Qualified Code: D64.9 - Anemia, unspecified Atypical chest pain Additional Instructions: Levsin as needed for abdominal pain. Clear liquid diet and advance as tolerated. Follow-up with your primary care physician within the next 24-48 hours for reevaluation of your chest and abdominal pain. Return if any concerns or sudden worsening. Please note that there might be incidental findings in your evaluation that are unrelated to the current emergency department visit. Please notify your primary care doctor about this emergency department visit in order to obtain and review all of the testing performed so that these incidental findings can be monitored as needed. If you had an x-ray performed, please understand that some fractures may not be seen on the initial set of x-rays. If your symptoms persist you might need a repeat set of x-rays to check for such a fracture. If you had a laceration evaluated, please understand that foreign bodies such as glass or wood may not be visible to the naked eye or on plain x-rays. If the wound becomes red, swollen, increasingly more painful or if there is any drainage from the wound, please have it reevaluated by a physician for the possibility of a retained foreign body. If you're unable to follow up as outlined in the discharge instructions please return to the emergency department. Thank you for choosing the [facility] Emergency Department for your care. It was a pleasure to serve you today. Ji Carlin M.D. [facility] Prescriptions: Current Visit Scripts Hyoscyamine (Levsin) 1-2 TAB PO Q6P PRN ABDOMINAL CRAMPS #12 TAB (Raegan PAULSON,Ji Lo)
[2018-03-06 05:48] LABS: HEMATOCRIT 32.5 % (37-47); MEAN CORPUSCULAR HGB 20.6 PG (27.0-31.0); MEAN CORPUSCULAR HGB CONC 30.5 G/DL (33.0-37.0); MEAN CORPUSCULAR VOLUME 67.6 FL (81.0-99.0); MEAN PLATELET VOLUME 7.9 FL (7.4-10.4); PLATELET COUNT 294 /CUMM (130-400); RBC DISTRIBUTION WIDTH 16.6 % (11.5-14.5); RED BLOOD CELL CT 4.81 /CUMM (4.20-5.40); WHITE BLOOD CELL COUNT 7.2 /CUMM (4.8-10.8)
--- NOTE | 2018-03-06 06:20 | RADIOLOGY REPORT ---
EXAMINATION: XR PORTABLE CHEST CLINICAL INFORMATION: Chest pain COMPARISON: 11/28/2017 TECHNIQUE: Portable frontal view of the chest was obtained. FINDINGS: The lungs are clear with no focal consolidation. No evidence of pneumothorax, pulmonary edema, or pleural effusions. The cardiac silhouette appears near the upper limits of normal in size. No acute osseous findings are seen. IMPRESSION: No acute cardiopulmonary findings.
--- NOTE | 2018-03-06 06:29 | CT SCAN REPORT ---
EXAMINATION: CT ABDOMEN AND PELVIS WITHOUT CONTRAST CLINICAL INFORMATION: Lower abdominal pain, question renal colic COMPARISON: 02/23/2018 TECHNIQUE: Multidetector volumetric imaging was performed from the superior aspect of the liver through the pubic symphysis. Sagittal and coronal reformatted images were obtained on the technologist's workstation. DLP: 659.86 mGy-cm FINDINGS: LUNG BASES: The visualized lung bases are unremarkable. LIVER, GALLBLADDER, AND BILIARY TREE: The liver is normal in size, shape, and attenuation. No focal hepatic lesion or biliary ductal dilatation is present. Patient is status post cholecystectomy. PANCREAS: Unremarkable. SPLEEN: Unremarkable. ADRENAL GLANDS: Unremarkable. KIDNEYS AND URETERS: The kidneys are normal in size, shape, and attenuation. No hydronephrosis, hydroureter, or obstructing calculi seen. A tiny cortical calcification is noted in the upper left kidney. No perinephric stranding. BLADDER: Unremarkable. GASTROINTESTINAL TRACT: There is minimal colonic diverticulosis. The small and large bowel are otherwise unremarkable without evidence of obstruction or pericolonic inflammatory change. The appendix is unremarkable. ABDOMINAL WALL: No significant hernia is appreciated. LYMPH NODES: Normal. VASCULAR: There is mild scattered atherosclerotic calcification. PELVIC VISCERA: Patient is status post hysterectomy. OSSEOUS STRUCTURES: There are a few subacute to chronic appearing lower left rib fractures. Degenerative changes are noted in the spine. There is a dextroscoliosis of the lumbar spine. Patient is status post right hip arthroplasty. Generator device is present in the right gluteal subcutaneous tissues, with lead extending to the sacrum. IMPRESSION: No hydronephrosis or ureteral calculus. No acute findings identified in the abdomen/pelvis.
--- NOTE | 2018-03-06 07:03 | CT SCAN REPORT ---
EXAMINATION: CT ANGIOGRAM OF THE CHEST WITH AND WITHOUT CONTRAST (CT PULMONARY ANGIOGRAM FOR PE) CLINICAL INFORMATION: Chest pain, positive d-dimer COMPARISON: 10/23/2017 TECHNIQUE: Prior to contrast administration, noncontrast localization images were obtained. Subsequently, multidetector volumetric imaging was performed from the thoracic inlet to below the diaphragms following the administration of 82 mL Optiray 320 intravenous contrast. No contrast reaction reported. Sagittal, coronal, and MIP oblique sagittal reformatted images were obtained on the CT workstation, uploaded to PACS, and reviewed. Total exam dose-length product 499.64 mGy-cm. FINDINGS: QUALITY OF STUDY/CONTRAST BOLUS: Satisfactory PULMONARY ARTERIES: No central or segmental pulmonary emboli. THORACIC AORTA: No aneurysm or dissection. There is mild atherosclerotic disease of aorta. LUNG: No focal consolidation, nodules or masses. PLEURA: No pleural effusion or pneumothorax. MEDIASTINUM: There is suggestion of a 1.1 cm posterior right thyroid nodule. No mediastinal lymphadenopathy is seen. There is mild cardiomegaly without pericardial effusion. No evidence of septal bowing or right heart strain. CHEST WALL/AXILLA: No axillary or internal mammary lymphadenopathy. OSSEOUS STRUCTURES: There are a few subacute to chronic appearing lower left rib fractures. Degenerative changes are noted in the spine. UPPER ABDOMEN: Patient is status post cholecystectomy. No reflux of contrast into the hepatic veins to suggest elevated right heart pressures. IMPRESSION: 1. No pulmonary embolus identified. 2. Cardiomegaly. 3. Suggestion of a right thyroid lobe nodule; correlation with ultrasound workup is recommended. VTE: negative
[2018-03-06] MEDS ORDERED: LEVSIN0.125 M1 PO (09:53)
[2018-03-06 10:18] VITALS: BP 156/63
[2018-06-02] MEDS ORDERED: NAPROSYN500 M1 PO (07:32)
== END 2018-03-06 11:39 ==
LOC: ERH 05:19
PROVIDERS: Pediatrics
DX: D64.9 Anemia, unspecified (principal); R07.89 Other chest pain; R10.9 Unspecified abdominal pain
CPT/HCPCS: 71045; 74176; 81003; 93005; 93010; 96365; 96375; J0131; J1885

== ENCOUNTER 2018-05-16 16:58 | Emergency (ER) | payer OTHER, MEDICARE ==
[~2018-05-16] VITALS: Ht 160 cm; Wt 90.7 kg
[~2018-05-16 16:58] MED LIST changes: +LEVSIN0.125 M1 PO
--- NOTE | 2018-05-16 17:31 | ED MVC/FALL/TRAUMA COMPLAINT ---
History of Present Illness General Chief Complaint: Fall Stated Complaint: FALL Source: patient Exam Limitations: no limitations Vital Signs & Intake/Output Vital Signs & Intake/Output Vital Signs Date Time Temp Pulse Resp B/P B/P Pulse O2 O2 Flow FiO2 Mean Ox Delivery Rate 05/16 1703 98.9 88 17 154/78 100 Room Air Allergies Coded Allergies: STATINS (UNKNOWN 03/06/18) cetirizine (From ZYRTEC) (UNKNOWN 03/06/18) nut - unspecified (ITCHING 03/06/18) Reconcile Medications Acetaminophen (Tylenol) 325 MG TABLET 2 TAB PO Q6H PRN PAIN (Reported) Apixaban (Eliquis) 2.5 MG TABLET 1 TAB PO BID ANTICOAGULANT Aspirin (Ecotrin*) 81 MG TABLET.DR 1 TAB PO DAILY HEART/BLOOD (Reported) Calcium Carbonate (TUMS) 200 MG CALCIUM (500 MG) TAB.CHEW 1 TAB PO TID GI ( Reported) Cholecalciferol (Vitamin D3) 1,000 UNIT TABLET 1 TAB PO DAILY SUPPLEMENT ( Reported) Cyclosporine (Restasis) 0.05 % DROPERETTE 1 GTT OU BID BOTH EYES (Reported) Docusate Sodium (Colace) 100 MG CAPSULE 1 CAP PO BID STOOL SOFTENER (Reported ) Hyoscyamine (Levsin) 0.125 MG TABLET 1-2 TAB PO Q6P PRN ABDOMINAL CRAMPS Lamotrigine (Lamictal) 100 MG TABLET 1 TAB PO QPM NERVE PAIN (Reported) Loperamide HCl (Loperamide) 2 MG CAPSULE 2 CAP PO Q4H PRN LOOSE STOOLS ( Reported) Melatonin 3 MG TABLET 1 TAB PO QPM SLEEP (Reported) Methylcellulose (With Sugar) (Citrucel Powder) 850 GM POWDER 2 GM PO TID PRN GI (Reported) Mirabegron (Myrbetriq) 50 MG TAB.ER.24H 1 TAB PO QHS BLADDER (Reported) Polyethylene Glycol 3350 (Miralax) 17 GRAM POWD.PACK 1 PAC PO DAILY PRN GI ( Reported) dissolve in water Pregabalin (Lyrica) 25 MG CAPSULE 1 CAP PO BID NEUROPATHY (Reported) Quetiapine Fumarate 25 MG TABLET 1 TAB PO QPM MENTAL HEALTH (Reported) Sertraline HCl 100 MG TABLET 1.5 TAB PO DAILY MENTAL HEALTH (Reported) Triage Note: PT BIBA FOR [facility] TODAY @ [facility]ISTED [facility]IV[facility] . PT STATES SHE HIT HER HEAD BUT DENIES LOC. AOX4. NAD NOTED Triage Nurses Notes Reviewed? yes Onset: Abrupt Duration: minute(s): Timing: single episode today Severity: moderate Injuries/Fall Location: head, back Method of Injury: fall Loss of Consciousness: no loss of consciousness HPI: 78-year-old female with a history of hypertension, CVA, falls BIBA to emergency department from assisted living after a fall. Patient states that she got up from her wheelchair and was trying to use the walker. Patient lost control of the walker and fell backwards landing on her back and hitting her head. Patient reports "mild" mid back pain however no other injury. She did not lose consciousness or blackout from the fall. She denies headache, paresthesias, abdominal pain, nausea, chest pain, pleuritic pain. (Quita Engel) Past History Travel History Traveled to [place] past 21 day No Medical History Any Pertinent Medical History? 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 No (Quita Engel) Review of Systems Review of Systems Constitutional: Reports: no symptoms. Eyes: Reports: no symptoms. Ears, Nose, Throat, Mouth: Reports: no symptoms. Respiratory: Reports: no symptoms. Cardiovascular: Reports: no symptoms. Gastrointestinal/Abdominal: Reports: no symptoms. Genitourinary: Reports: no symptoms. Musculoskeletal: Reports: see HPI. Skin: Reports: no symptoms. Neurological/Psychological: Reports: no symptoms. All Other Systems: Reviewed and Negative (Quita Engel) Physical Exam Physical Exam General Appearance: well developed/nourished, no apparent distress, alert, awake Head: atraumatic, normal appearance Eyes: Bilateral: normal appearance, PERRL, EOMI. Ears, Nose, Throat, Mouth: hearing grossly normal, moist mucous membrane Neck: normal inspection, supple, full range of motion Respiratory: normal breath sounds, no respiratory distress, lungs clear Cardiovascular: regular rate/rhythm Gastrointestinal: normal bowel sounds, soft, non-tender, no organomegaly Back: MILD t-SPINE TENDERNESS WITHOUT DEFORMITY, NO ECCHYMOSIS Extremities: normal range of motion, HIPS ARE NONTENDER, NO PAIN WITH PASSIVE ROM, NO DEFORMITY Neurologic/Psych: awake, alert, oriented x 3 Skin: intact, normal color, warm/dry Core Measures ACS in differential dx? No CVA/TIA Diagnosis No Sepsis Present: No Sepsis Focused Exam Completed? No (Kelsey EDWARDS,Quita Suazo) Progress Differential Diagnosis: C/T/L spine injury, ext injury, ICH, pelvis injury, pnemothorax, spinal cord injury Plan of Care: Orders Procedure Date/time Status XRY-KNEE, RIGHT 05/16 1818 Active XRY-THORACIC SPINE 05/16 1723 Active Patient had mechanical fall prior to arrival. She is neurologically intact at this time without focal neurologic deficit. Given head strike will CT image her head. She has mild tenderness to thoracic spine, low suspicion for acute trauma , x-ray imaging is sufficient for assessing this patient. Patient alerted the nurse that she is now having right knee pain. On reexam the patient has mild tenderness to right knee without deformity. We'll obtain x-ray imaging of right knee for further evaluation. Head CT scan is WNL. The patient was signed out to Dr. Washington pending x-rays. Diagnostic Imaging: Viewed by Me: Radiology Read, CT Scan. Discussed w/RAD: Radiology Read, CT Scan. Radiology Impression: PATIENT: DENIZ LOUIS PRESENT AGE: 78 PATIENT ACCOUNT NO: [id number] : 42 LOCATION: [facility] ORDERING PHYSICIAN: Quita EDWARDS SERVICE DATE: 05/16/18 EXAM TYPE: CAT - CT CERV SPINE WO IV CONTRAST; CT HEAD WO IV CONTRAST EXAMINATION: CT OF THE HEAD AND CERVICAL SPINE WITHOUT CONTRAST CLINICAL INFORMATION: Status post fall with head strike. Rule out intracranial hemorrhage, fracture, malalignment. COMPARISON: 12/08/2017, 11/26/2017 TECHNIQUE: Contiguous axial imaging was performed from the vertex to the thoracic inlet, through the head and cervical spine, without intravenous administration of contrast. Coronal and sagittal reformatted images through the cervical spine were obtained on the technologists workstation. FINDINGS: Head: No acute intracranial hemorrhage. No extra-axial fluid collection. Mancia-white matter differentiation is preserved without evidence of acute large vessel territory ischemia. There is symmetric concordant prominence of the ventricles and sulci consistent with age-appropriate diffuse parenchymal volume loss. The configuration of the ventricles is not significantly changed from the prior study 12/08/2017. No hydrocephalus. No mass effect or midline shift. Similar appearance of periventricular and subcortical white matter hypodensity consistent with age-appropriate chronic microvascular white matter ischemic changes. Remote left periventricular lacunar infarct again noted. The osseous structures and soft tissues are normal. No acute sinusitis. Cervical spine: Normal pre-vertebral soft tissues. No fracture seen. Again seen is 2 to 3 mm anterolisthesis of C2 on C3. There is a 4 mm anterolisthesis of C4 on C5. There is minimal anterolisthesis of C6 on C7. There is loss of disc height at C4-5 through C6-7. There is severe loss of disc height with endplate sclerosis and osteophytosis at C5-6. Overall, the appearance is similar to the prior study. Multilevel facet arthropathy. There is calcification of the stylohyoid ligament bilaterally. Thyroid homogeneous with no nodules seen. Lung apices are clear. No cervical lymphadenopathy, mass, or fluid collection. IMPRESSION: No acute intracranial pathology. No acute osseous abnormality of the cervical spine. Findings are similar to prior studies from 12/08/2017 and 11/26/2017. DICTATED BY: Prasanna Mendez MD DATE/TIME DICTATED:1823 INCINERATOR ATTENDANT:DENISHA DATE/TIME TRANSCRIBED:05/16/181823 CONFIDENTIAL, DO NOT COPY WITHOUT APPROPRIATE AUTHORIZATION. <Electronically signed in Other Vendor System> SIGNED BY: Prasanna Mendez MD 05/16/18 9057 Hand-Off Endorsed To: Ji Washington DO Endorsed Time: 1899 Pending: Xray (Kelsey EDWARDS,Quita Suazo) Departure Departure Disposition: STILL A PATIENT Condition: Stable Referrals: Lorna Will MD (PCP/Family) Additional Instructions: Take ibuprofen 400-600 mg for pain. Follow-up with your primary care doctor. Use her wheelchair to move around her apartment. Return if worsening symptoms or concerns. Please note that there might be incidental findings in your evaluation that are unrelated to the current emergency department visit. Please notify your primary care doctor about this emergency department visit in order to obtain and review all of the testing performed so that these incidental findings can be monitored as needed. If you had an x-ray performed, please understand that some fractures may not be seen on the initial set of x-rays. If your symptoms persist you might need a repeat set of x-rays to check for such a fracture. If you had a laceration evaluated, please understand that foreign bodies such as glass or wood may not be visible to the naked eye or on plain x-rays. If the wound becomes red, swollen, increasingly more painful or if there is any drainage from the wound, please have it reevaluated by a physician for the possibility of a retained foreign body. If you're unable to follow up as outlined in the discharge instructions please return to the emergency department. Thank you for choosing the [facility] Emergency [facility] for your care. It was a pleasure to serve you today. Departure Forms: Customer Survey General Discharge Information (Kelsey EDWARDS,Quita Suazo) Departure Clinical Impression Primary Impression: Fall Qualifiers: Encounter type: initial encounter Qualified Code: W19.XXXA - Unspecified fall, initial encounter Secondary Impressions: Back pain Qualifiers: Back pain location: thoracic back pain Chronicity: acute Back pain laterality: midline Qualified Code: M54.6 - Pain in thoracic spine Knee pain Qualifiers: Chronicity: acute Laterality: right Qualified Code: M25.561 - Pain in right knee Comments 7:35 PM The patient was signed out to me by Nirmala Cole. She status post mechanical slip and fall. X-rays were negative for fracture. Head CT is negative. She is being discharged back to the [facility] at [facility] PA/HOOF TRIMMER Co-Sign Statement Statement: ED Attending supervision documentation- [X] I saw and evaluated the patient. I have also reviewed all the pertinent lab results and diagnostic results. I agree with the findings and the plan of care as documented in the PA's/HOOF TRIMMER's documentation. [] I have reviewed the ED Record and agree with the PA's/HOOF TRIMMER's documentation. [] Additions or exceptions (if any) to the PAs/HOOF TRIMMER's note and plan are summarized below: [] (Ji Washington DO)
--- NOTE | 2018-05-16 18:45 | CT SCAN REPORT ---
EXAMINATION: CT OF THE HEAD AND CERVICAL SPINE WITHOUT CONTRAST CLINICAL INFORMATION: Status post fall with head strike. Rule out intracranial hemorrhage, fracture, malalignment. COMPARISON: 12/08/2017, 11/26/2017 TECHNIQUE: Contiguous axial imaging was performed from the vertex to the thoracic inlet, through the head and cervical spine, without intravenous administration of contrast. Coronal and sagittal reformatted images through the cervical spine were obtained on the technologists workstation. FINDINGS: Head: No acute intracranial hemorrhage. No extra-axial fluid collection. Mancia-white matter differentiation is preserved without evidence of acute large vessel territory ischemia. There is symmetric concordant prominence of the ventricles and sulci consistent with age-appropriate diffuse parenchymal volume loss. The configuration of the ventricles is not significantly changed from the prior study 12/08/2017. No hydrocephalus. No mass effect or midline shift. Similar appearance of periventricular and subcortical white matter hypodensity consistent with age-appropriate chronic microvascular white matter ischemic changes. Remote left periventricular lacunar infarct again noted. The osseous structures and soft tissues are normal. No acute sinusitis. Cervical spine: Normal pre-vertebral soft tissues. No fracture seen. Again seen is 2 to 3 mm anterolisthesis of C2 on C3. There is a 4 mm anterolisthesis of C4 on C5. There is minimal anterolisthesis of C6 on C7. There is loss of disc height at C4-5 through C6-7. There is severe loss of disc height with endplate sclerosis and osteophytosis at C5-6. Overall, the appearance is similar to the prior study. Multilevel facet arthropathy. There is calcification of the stylohyoid ligament bilaterally. Thyroid homogeneous with no nodules seen. Lung apices are clear. No cervical lymphadenopathy, mass, or fluid collection. IMPRESSION: No acute intracranial pathology. No acute osseous abnormality of the cervical spine. Findings are similar to prior studies from 12/08/2017 and 11/26/2017.
--- NOTE | 2018-05-16 19:12 | RADIOLOGY REPORT ---
EXAMINATION: XR THORACIC SPINE CLINICAL INFORMATION: Fall on to back with pain COMPARISON: CT chest March 06, 2018 TECHNIQUE: 3 views of the thoracic spine were obtained. FINDINGS: Degenerative changes and scoliosis convex to the left are noted that were seen at the time of the prior CT. No acute fracture is seen. No bony destructive lesion is seen. IMPRESSION: Degenerative changes without fracture.
--- NOTE | 2018-05-16 19:22 | RADIOLOGY REPORT ---
EXAMINATION: XR KNEE, RIGHT CLINICAL INFORMATION: Fall with question of fracture COMPARISON: December 08, 2017 TECHNIQUE: Four views of the right knee. FINDINGS: Once again seen is marked narrowing of the medial compartment with associated sclerosis consistent with degenerative changes. No fractures are seen. No definite joint effusion is present. IMPRESSION: Marked degenerative changes right knee with narrowing of the medial compartment
[2018-05-16 19:38] VITALS: BP 146/70
== END 2018-05-16 20:26 ==
LOC: ERH 16:58
DX: M54.9 Dorsalgia, unspecified (principal); M25.561 Pain in right knee
CPT/HCPCS: 72070; 73560-RT

== ENCOUNTER 2018-05-23 11:40 | Emergency (ER) | payer OTHER, MEDICARE ==
[~2018-05-23] VITALS: Ht 157.5 cm; Wt 90.7 kg
[2018-05-23 11:49] VITALS: BP 159/74
--- NOTE | 2018-05-23 13:42 | RADIOLOGY REPORT ---
EXAMINATION: X-RAY KNEE, RIGHT X-RAY KNEE, LEFT CLINICAL INFORMATION: Bilateral knee pain after a fall. COMPARISON: Right knee, left knee 08/19/2017 TECHNIQUE: Right knee 4 views, left knee 4 views. FINDINGS: RIGHT KNEE: Tricompartmental degenerative changes with joint space narrowing and marginal osteophytes, worst involving the medial compartment. No joint effusion. Enthesophyte of the patella at the insertion of the quadriceps tendon. No radiographic evidence of acute fracture or subluxation. LEFT KNEE: Tricompartmental degenerative changes with joint space narrowing and marginal osteophytes, worst at the medial compartment. No joint effusion. Enthesophyte of the patella at the insertion of the quadriceps tendon. No radiographic evidence of acute fracture or subluxation. IMPRESSION: Similar-appearing tricompartmental degenerative changes bilaterally. No radiographic evidence of acute fracture or subluxation.
--- NOTE | 2018-05-23 14:10 | ED GENERAL ADULT ---
See Addendum History of Present Illness General Chief Complaint: Lower Extremity Problems Stated Complaint: BIBA KNEE PAIN Source: patient Exam Limitations: poor historian Vital Signs & Intake/Output Vital Signs & Intake/Output Vital Signs Date Time Temp Pulse Resp B/P B/P Pulse O2 O2 Flow FiO2 Mean Ox Delivery Rate 05/23 1556 96 Room Air 05/23 1149 97.1 64 18 159/74 98 Room Air Allergies Coded Allergies: STATINS (UNKNOWN 03/06/18) cetirizine (From ZYRTEC) (UNKNOWN 03/06/18) nut - unspecified (ITCHING 03/06/18) Reconcile Medications Acetaminophen (Tylenol) 325 MG TABLET 2 TAB PO Q6H PRN PAIN (Reported) Apixaban (Eliquis) 2.5 MG TABLET 1 TAB PO BID ANTICOAGULANT Aspirin (Ecotrin*) 81 MG TABLET.DR 1 TAB PO DAILY HEART/BLOOD (Reported) Calcium Carbonate (TUMS) 200 MG CALCIUM (500 MG) TAB.CHEW 1 TAB PO TID GI ( Reported) Cholecalciferol (Vitamin D3) 1,000 UNIT TABLET 1 TAB PO DAILY SUPPLEMENT ( Reported) Cyclosporine (Restasis) 0.05 % DROPERETTE 1 GTT OU BID BOTH EYES (Reported) Docusate Sodium (Colace) 100 MG CAPSULE 1 CAP PO BID STOOL SOFTENER (Reported ) Hyoscyamine (Levsin) 0.125 MG TABLET 1-2 TAB PO Q6P PRN ABDOMINAL CRAMPS Lamotrigine (Lamictal) 100 MG TABLET 1.5 TAB PO QPM NERVE PAIN (Reported) Loperamide HCl (Loperamide) 2 MG CAPSULE 2 CAP PO Q4H PRN LOOSE STOOLS ( Reported) Melatonin 3 MG TABLET 1 TAB PO QPM SLEEP (Reported) Methylcellulose (With Sugar) (Citrucel Powder) 850 GM POWDER 2 GM PO TID PRN GI (Reported) Mirabegron (Myrbetriq) 50 MG TAB.ER.24H 1 TAB PO QHS BLADDER (Reported) Polyethylene Glycol 3350 (Miralax) 17 GRAM POWD.PACK 1 PAC PO DAILY PRN GI ( Reported) dissolve in water Prednisone 5 MG TABLET 1 TAB PO DAILY arthritis Pregabalin (Lyrica) 25 MG CAPSULE 1 CAP PO BID NEUROPATHY (Reported) Quetiapine Fumarate 25 MG TABLET 1 TAB PO QPM MENTAL HEALTH (Reported) Sertraline HCl 100 MG TABLET 1.5 TAB PO DAILY MENTAL HEALTH (Reported) Trospium Chloride 20 MG TABLET 1 TAB PO BID UNKNOWN (Reported) Triage Note: 78 YO FEMALE TO TRIAGE FOR EVAL OF BIALTERAL KNEE PAIN SINCE THIS AM AROUND 3AM. DIANNE RECENT INJURY. REPORTS "I FALL ALOT" DENIES RECENT FALL. STATES TOOK TYLENOL WITHOUT RELIEF. Triage Nurses Notes Reviewed? yes Onset: Abrupt Duration: day(s): Timing: recent history HPI: 05/23/18 78-year-old female complains of severe pain to bilateral knees. She says she has a history of arthritis. The right knee is worse than the left. No fever or other complaints. On physical exam she is awake alert oriented 3. She has no other complaints. No chest pain, abdominal pain. She denies any trauma. No back pain at this time. She lives at [facility] and has assistance at home. She only ambulates with a walker, and uses a wheelchair, Past History Travel History Traveled to [facility] past 21 day No Medical History Any Pertinent Medical History? 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 No Review of Systems Review of Systems Constitutional: Denies: fever. EENTM: Denies: visual changes. Respiratory: Denies: short of breath. Cardiovascular: Denies: chest pain. GI: Denies: abdominal pain. Genitourinary: Reports: no symptoms. Musculoskeletal: Reports: see HPI. Skin: Denies: rash. Neurological/Psychological: Reports: anxiety. Hematologic/Endocrine: Denies: bruising, bleeding. Physical Exam Physical Exam General Appearance: alert, awake, anxious, mild distress Head: atraumatic, normal appearance Eyes: Bilateral: normal appearance, PERRL, EOMI. Ears, Nose, Throat: normal pharynx, normal ENT inspection, hearing grossly normal Neck: normal inspection, supple, full range of motion Respiratory: normal breath sounds, chest non-tender, no respiratory distress Cardiovascular: regular rate/rhythm Peripheral Pulses: 4+ radial (R), 4+ radial (L) Gastrointestinal: soft, non-tender Back: normal range of motion Extremities: swelling, tenderness Neurologic/Psych: awake, alert, oriented x 3 Skin: intact, normal color, warm/dry Core Measures ACS in differential dx? No CVA/TIA Diagnosis: No Sepsis Present: No Sepsis Focused Exam Completed? No Progress Differential Diagnoses I considered the following diagnoses in my evaluation of the patient: Plan of Care: The patient has severe arthritis on her x-rays. Physical exam is significant for minimal swelling to both knees no increased warmth, no ligament instability. She was treated with a single Vicodin in the ED. She was able to ambulate from the wheelchair to the stretcher for EMS transport. She was discharged and placed on a short course of prednisone. She will follow- up with her doctor this week. Initial ED EKG: none Departure Departure Disposition: STILL A PATIENT Condition: Stable Clinical Impression Primary Impression: Arthritis Referrals: Lorna Will MD (PCP/Family) Departure Forms: Customer Survey General Discharge Information Prescriptions: Current Visit Scripts Prednisone 1 TAB PO DAILY #6 TAB Comments IMPRESSION: Similar-appearing tricompartmental degenerative changes bilaterally. No radiographic evidence of acute fracture or subluxation. DICTATED BY: Annie Wolf MD DATE/TIME DICTATED:05/23/181329 ROAD MECHANIC:DENISHA DATE/TIME TRANSCRIBED:05/23/181329 CONFIDENTIAL, DO NOT COPY WITHOUT APPROPRIATE AUTHORIZATION. <Electronically signed in Other Vendor System> SIGNED BY: Annie Wolf MD 05/23/18 8275 Critical Care Note Critical Care Note Critical Care Time: non-applicable
[2018-05-23] MEDS ORDERED: TROSPIUM CHLORI20 M1 PO (14:32)
[2018-05-23] MEDS ORDERED: PREDNISONE5 M1 PO (14:48)
== END 2018-05-23 16:05 ==
LOC: ERH 11:40
DX: M17.0 Bilateral primary osteoarthritis of knee (principal)
CPT/HCPCS: 73562-LT; 73562-RT; J7512